=== PATIENT | male | born 1965 | race African-American/Black ===

== ENCOUNTER 2017-01-26 10:23 | Inpatient (IN) | payer OTHER ==
--- NOTE | 2017-01-26 10:49 | PDOC ---
History of Present Illness <Patric Glover - Last Filed: 01/26/17 17:49> - General History Source: Patient Exam Limitations: No Limitations - History of Present Illness Initial Comments: 01/26/17 11:04 The patient is a 51-year-old male, with a significant past medical history of lumbar shunt, who presents to the ED with one week of chest pain and 5 days of shortness of breath. Pt states that he was not exerting himself when the chest pain began. He states that he feels as if someone is sitting on the center of his chest. He describes the pain as intermittent, 5/10 in severity, radiating down his left arm, with no exacerbating or alleviating factors. He has not taken anything for the pain. Pt states that he came in today because his shortness of breath worsened today while on the bus. He also reports that he was sweating even though the AC was on in the bus. Pts sob is exacerbated when walking up steps. The patient denies any fever, chills, nausea, vomiting, diarrhea, or abdominal pain. He denies any numbness or tingling in his extremities. <Claire Patton - Last Filed: 01/26/17 18:48> - General Chief Complaint: Chest Pain Stated Complaint: CHEST PAIN Time Seen by Provider: 01/26/17 10:48 Past History - Psycho/Social/Smoking Cessation Hx Suicidal Ideation: No Smoking History: Never smoked <BelenPatric - Last Filed: 01/26/17 17:49> <Claire Patton - Last Filed: 01/26/17 18:48> - Past Medical History Allergies/Adverse Reactions: Allergies Allergy/AdvReac Type Severity Reaction Status Date / Time No Known Allergies Allergy Verified 01/26/17 10:35 Home Medications: Ambulatory Orders NK [No Known Home Medication] 01/26/17 Review of Systems - Review of Systems Able to Perform ROS?: Yes Comments:: 01/26/17 11:05 GENERAL/CONSTITUTIONAL: No fever or chills. No weakness. HEAD, EYES, EARS, NOSE AND THROAT: No change in vision. No ear pain or discharge. No sore throat. CARDIOVASCULAR: +chest pain or shortness of breath. RESPIRATORY: No cough, wheezing, or hemoptysis. SKIN: No rash GASTROINTESTINAL: No nausea, vomiting, diarrhea or constipation. GENITOURINARY: No dysuria, frequency, or change in urination. MUSCULOSKELETAL: No joint or muscle swelling or pain. No neck or back pain. NEUROLOGIC: No headache, vertigo, loss of consciousness, or change in strength/ sensation. ENDOCRINE: No increased thirst. No abnormal weight change. HEMATOLOGIC/LYMPHATIC: No anemia, easy bleeding, or history of blood clots. ALLERGIC/IMMUNOLOGIC: No hives or skin allergy. <Claire Patton - Last Filed: 01/26/17 18:48> *Physical Exam - Vital Signs Last Vital Signs Temp Pulse Resp BP Pulse Ox 98.7 F 100 H 19 153/107 98 01/26/17 10:35 01/26/17 10:35 01/26/17 10:35 01/26/17 10:35 01/26/17 10:35 <Patric Glover - Last Filed: 01/26/17 17:49> - Vital Signs Last Vital Signs Temp Pulse Resp BP Pulse Ox 98.7 F 100 H 19 153/107 98 01/26/17 10:35 01/26/17 10:35 01/26/17 10:35 01/26/17 10:35 01/26/17 10:35 - Physical Exam Comments: 01/26/17 11:06 GENERAL: Awake, alert, and fully oriented, in no acute distress. +Obese HEAD: No signs of trauma ENT: Auricles normal inspection, hearing grossly normal, nares patent, oropharynx clear EYES: PERRLA, EOMI, sclera anicteric, conjunctiva clear without exudates. Moist mucosa. NECK: Normal ROM, supple, no lymphadenopathy, JVD, or masses LUNGS: Breath sounds equal, clear to auscultation bilaterally. No wheezes, and no crackles HEART: Regular rate and rhythm, normal S1 and S2, no murmurs, rubs or gallops ABDOMEN: Soft, nontender, normoactive bowel sounds. No guarding, no rebound. No masses EXTREMITIES: Normal range of motion, no edema. No clubbing or cyanosis. No cords, erythema, or tenderness NEUROLOGICAL: Cranial nerves II through XII grossly intact. Normal speech. SKIN: Warm, Dry, normal turgor, no rashes or lesions noted. <Claire Patton - Last Filed: 01/26/17 18:48> Heart Score/ECG Review - ECG Intrepretation Comment:: 01/26/17 11:07 EKG was reviewed by Dr. Glover at 10:36. Impression: Normal sinus rhythm. Left axis deviation. 01/26/17 18:47 Second EKG was reviewed at 18:10. Impression: Sinus rhythm with 1st degree AV block. <Claire Patton - Last Filed: 01/26/17 18:48> ED Treatment Course - LABORATORY CBC & Chemistry Diagram: 01/26/17 11:27 01/26/17 11:27 <Patric Glover - Last Filed: 01/26/17 17:49> - LABORATORY CBC & Chemistry Diagram: 01/26/17 11:27 01/26/17 11:27 <Claire Patton - Last Filed: 01/26/17 18:48> Medical Decision Making - Medical Decision Making 01/26/17 11:55 Chest X-Ray was reviewed by Dr. Glover and over-read by Dr. Glover. Impression: No infiltrate or edema in the lungs-no acute changes noted. 01/26/17 16:00 Dr. Naik was paged and notified via phone service. Second page placed at 17:35. <Claire Patton - Last Filed: 01/26/17 18:48> *DC/Admit/Observation/Transfer - Discharge Dispostion Admit: Yes - Attestations Physician Attestion: 01/26/17 10:49 I, Dr. Patric Glover, attest that this document has been prepared under my direction and personally reviewed by me in its entirety. I further attest, that it accurately reflects all work, treatment, procedures and medical decision -making performed by me. <Patric Glover - Last Filed: 01/26/17 17:49> - Attestations Scribe Attestion: 01/26/17 11:06 Documentation prepared by Claire Patton, acting as director of graduate medical education for Patric Glover MD. <Claire Patton - Last Filed: 01/26/17 18:48> Diagnosis at time of Disposition: Hypertensive crisis without congestive heart failure - Discharge Dispostion Condition at time of disposition: Improved - Referrals Referrals: Fannie Ramos [Primary Care Provider] -
[2017-01-26 11:41] LABS: BASOPHIL 0.6 % (0-2.0); EOSINOPHIL 3.2 % (0-4.5); MCHC 33.1 g/dl (32.0-35.9); MEAN CELL VOLUME 84.6 fl (80-96); MEAN PLT VOLUME 8.4 fl (7.5-11.1); NEUTROPHILS 71.1 % (42.8-82.8); PLATELET COUNT 230 K/MM3 (134-434); RDW 13.4 % (11.9-15.9)
--- NOTE | 2017-01-26 11:50 | EKG ---
Test Reason : Blood Pressure : / mmHG Vent. Rate : 100 BPM Atrial Rate : 100 BPM P-R Int : 200 ms QRS Dur : 098 ms QT Int : 360 ms P-R-T Axes : 055 -40 044 degrees QTc Int : 464 ms NORMAL SINUS RHYTHM LEFT AXIS DEVIATION ABNORMAL ECG NO PREVIOUS ECGS AVAILABLE Confirmed by EMMA JUNG MD ([id number]) on 01/26/2017 11:49:52 AM Referred By: Confirmed By:EMMA JUNG MD
[2017-01-26 11:59] LABS: INR 1.1 (0.82-1.09); PROTHROMBIN TIME (PATIENT) 12.1 SEC (9.98-11.88)
[2017-01-26] MEDS ORDERED: cloNIDine HCL 0.1 MG TABLET PO ONE (12:00)
[2017-01-26 12:04] LABS: ALBUMIN 3.8 g/dl (3.4-5.0); ANION GAP 5 (8-16); CALCIUM 8.9 mg/dL (8.5-10.1); CO2 32 mmol/L (21-32); GLUCOSE,RANDOM 293 mg/dL (74-106); SGPT/ALT 22 U/L (12-78)
[2017-01-26] MEDS ORDERED: cloNIDine HCL 0.1 MG TABLET ONE (12:06)
[2017-01-26 12:07] LABS: ALK PHOS 120 U/L (45-117); BILIRUBIN,TOTAL 0.3 mg/dL (0.2-1.0); TOT PROT 7.3 g/dl (6.4-8.2); TROPONIN I < 0.02 ng/ml (0.00-0.05)
[2017-01-26 12:08] LABS: SGOT/AST 18 U/L (15-37)
[2017-01-26 12:27] LABS: CK INDEX FOR DOBBS 0.7 % (0.0-5.0)
[2017-01-26] MEDS ORDERED: hydrALAZINE HCL 20 MG/ML VIAL IVPUSH ONE ×2 (14:15)
[2017-01-26] MEDS ORDERED: hydrALAZINE HCL 20 MG/ML VIAL ONE (14:16)
[2017-01-26] MEDS ORDERED: METOPROLOL TARTRATE 5 MG/5 ML VIAL IVPUSH ONE ×2 (15:33→16:14)
[2017-01-26] MEDS ORDERED: METOPROLOL TARTRATE 5 MG/5 ML VIAL ONE ×2 (15:33→16:17)
[2017-01-26] MEDS ORDERED: amLODIPine BESYLATE 5 MG TABLET (FP) PO ONE (17:47)
[2017-01-26] MEDS ORDERED: amLODIPine BESYLATE 5 MG TABLET (FP) ONE (18:30)
[2017-01-26 19:00] LABS: TROPONIN I < 0.02 ng/ml (0.00-0.05)
[2017-01-26] MEDS: ASPIRIN COATED 81 MG TABLET.EC PO SCH (23:04)
[2017-01-27] MEDS ORDERED: METOPROLOL SUCCINATE 25 MG TAB.SR.24H (FP) PO SCH (07:15)
[2017-01-27] MEDS: amLODIPine BESYLATE 10 MG TABLET (FP) PO SCH (07:52)
[2017-01-27] MEDS ORDERED: hydrALAZINE HCL 25 MG TABLET (FP) PO ONE (08:45)
--- NOTE | 2017-01-27 09:20 | EKG ---
Test Reason : Blood Pressure : / mmHG Vent. Rate : 089 BPM Atrial Rate : 089 BPM P-R Int : 226 ms QRS Dur : 088 ms QT Int : 384 ms P-R-T Axes : 054 -44 027 degrees QTc Int : 467 ms SINUS RHYTHM WITH 1ST DEGREE A-V BLOCK LEFT AXIS DEVIATION ABNORMAL ECG WHEN COMPARED WITH ECG OF 26-JAN-2017 10:36, NO SIGNIFICANT CHANGE WAS FOUND Confirmed by YASH CARTER MD ([id number]) on 01/27/2017 9:20:20 AM Referred By: Confirmed By:YASH CARTER MD
[2017-01-27] MEDS: ASPIRIN COATED 81 MG TABLET.EC PO SCH (09:31)
--- NOTE | 2017-01-27 09:47 | CON.CARD ---
Consult Consult Specialty:: cardiology Reason for Consultation:: chest pain; HTN - History of Present Illness Chief Complaint: Pt A&Ox3; no chest pain presently. History of Present Illness: The patient is a 51-year-old black male, with a significant past medical history of lumbar shunt, legally blind, obesity, HTN, who presents to the ED with one week of chest pain and 5 days of shortness of breath. Pt states that he was not exerting himself when the chest pain began. He states that he feels as if someone is sitting on the center of his chest. He describes the pain as intermittent, 8/10 in severity, radiating down his left arm, sometimes lasting for hours, with no exacerbating or alleviating factors. He has not taken anything for the pain. Pt states that he came in today because his shortness of breath worsened today while on the bus. He also reports that he was sweating even though the airconditioning was on in the bus. Pts sob is exacerbated when walking up steps. The patient denies any fever, chills, nausea, vomiting, diarrhea, or abdominal pain. He denies any numbness or tingling in his extremities. - History Source History Provided By: Patient, Medical Record Limitations to Obtaining History: No Limitations - Past Medical History Cardio/Vascular: Yes: HTN Pulmonary: No: Asthma - Alcohol/Substance Use Hx Alcohol Use: Yes (occasional) - Smoking History Smoking history: Never smoked Home Medications - Allergies Allergies/Adverse Reactions: Allergies Allergy/AdvReac Type Severity Reaction Status Date / Time No Known Allergies Allergy Verified 01/26/17 10:35 - Home Medications Home Medications: Ambulatory Orders NK [No Known Home Medication] 01/26/17 Family Disease History - Family Disease History Family History: Denies Review of Systems - Review of Systems Constitutional: reports: No Symptoms Eyes: reports: Other HENT: reports: No Symptoms Neck: reports: No Symptoms Cardiovascular: reports: Chest Pain Respiratory: reports: SOB, SOB on Exertion Gastrointestinal: reports: No Symptoms Genitourinary: reports: No Symptoms Breasts: reports: No Symptoms Reported Musculoskeletal: reports: Joint Pain Integumentary: reports: No Symptoms Neurological: reports: Other Endocrine: reports: No Symptoms Hematology/Lymphatic: reports: No Symptoms Psychiatric: reports: No Symptoms - Risk Factors Known Risk Factors: Yes: Age, Gender, Hypertension, Physical Inactivity, Race, Other (morbid obesity) Vital Signs: Vital Signs Temperature 98.0 F 01/27/17 06:25 Pulse Rate 92 H 01/27/17 06:25 Respiratory Rate 20 01/27/17 06:25 Blood Pressure 170/110 01/27/17 06:25 O2 Sat by Pulse Oximetry (%) 98 01/26/17 21:05 Constitutional: Yes: Calm, Obese Eyes: Yes: Other (wears glasses; "legally blind") HENT: Yes: WNL Neck: Yes: WNL Respiratory: Yes: WNL Gastrointestinal: Yes: Soft, Abdomen, Obese Renal/: No: Anuria Cardiovascular: Yes: Regular Rate and Rhythm JVD: No Carotid Bruit: No PMI: Non-Displaced Heart Sounds: Yes: S1, S2, S4 Musculoskeletal: Yes: Joint Stiffness Extremities: Yes: WNL Edema: No Peripheral Pulses WNL: Yes Integumentary: Yes: WNL Neurological: Yes: Alert, Oriented Psychiatric: Yes: WNL - Other Data Labs, Other Data: INR, PTT INR 1.10 (0.82-1.09) 01/26/17 11:27 Troponin, BNP 01/26/17 18:20 Troponin I < 0.02 Troponin, BNP 01/26/17 18:20 Troponin I < 0.02 Imaging - Results Chest X-ray: Image Reviewed (no acute pathology) Cat Scan: Image Reviewed (no saddle embolism; limited study) Problem List - Problems (1) HTN (hypertension) Assessment/Plan: On metoprolol, hydralazine, amlodipine. Add spironolactone 50 mg daily; serial BP. F/u BUN/Cr, electrolytes. Code(s): I10 - ESSENTIAL (PRIMARY) HYPERTENSION (2) Obesity Code(s): E66.9 - OBESITY, UNSPECIFIED (3) Chest pain Assessment/Plan: Pt had 8/10 left-sided chest heaviness that began at rest and lasted several hours, with radiation to the left arm He has had a few similar episodes over the past month. TNI < 0.02; f/u serially. EKG: NSR; 1st degree AVB; LAD. ECHO : pending. Give ASA 81 mg daily. For stress MIBI once BP is controlled. The importance of weight loss, with diet modifcation, was disucssed in detail. Pt says he has lost 15 lbs in the past few months by decreasing portion sizes ( eg eating fewer porkchops, his favorit food, and drinking more water; he still has occasional sugary juices and sodas. He was athletic when young, and feels it was the steroids he took for his neurological disorder that started the weight gain, though "all of my family is big", he says. Code(s): R07.9 - CHEST PAIN, UNSPECIFIED
--- NOTE | 2017-01-27 11:45 | HP ---
Admitting History and Physical - Smoking History Smoking history: Never smoked - Alcohol/Substance Use Hx Alcohol Use: Yes (occasional) Home Medications - Allergies Allergies/Adverse Reactions: Allergies Allergy/AdvReac Type Severity Reaction Status Date / Time No Known Allergies Allergy Verified 01/26/17 10:35 - Home Medications Home Medications: Ambulatory Orders NK [No Known Home Medication] 01/26/17 Physical Examination Vital Signs: Vital Signs Temperature 98.0 F 01/27/17 06:25 Pulse Rate 92 H 01/27/17 06:25 Respiratory Rate 20 01/27/17 06:25 Blood Pressure 170/110 01/27/17 06:25 O2 Sat by Pulse Oximetry (%) 98 01/26/17 21:05
[2017-01-27] MEDS: SPIRONOLACTONE 25 MG TABLET (FP) PO SCH (14:51)
[2017-01-27] MEDS ORDERED: METOPROLOL SUCCINATE 25 MG TAB.SR.24H (FP) PO ONE (17:35)
--- NOTE | 2017-01-27 17:49 | PN ---
Progress Note, Physician Chief Complaint: Pt A&OX3; sitting up at bedside. No chest pain of dyspnea. History of Present Illness: The patient is a 51-year-old black male, with a significant past medical history of lumbar shunt, legally blind, obesity, HTN, who presents to the ED with one week of chest pain and 5 days of shortness of breath. Pt states that he was not exerting himself when the chest pain began. He states that he feels as if someone is sitting on the center of his chest. He describes the pain as intermittent, 8/10 in severity, radiating down his left arm, sometimes lasting for hours, with no exacerbating or alleviating factors. He has not taken anything for the pain. Pt states that he came in today because his shortness of breath worsened today while on the bus. He also reports that he was sweating even though the airconditioning was on in the bus. Pts sob is exacerbated when walking up steps. The patient denies any fever, chills, nausea, vomiting, diarrhea, or abdominal pain. He denies any numbness or tingling in his extremities. - Current Medication List Current Medications: Active Medications Amlodipine Besylate (Norvasc -) 10 mg PO DAILY [facility] Last Admin: 01/27/17 07:52 Dose: 10 mg Aspirin (Ecotrin -) 81 mg PO DAILY [facility] Last Admin: 01/27/17 09:31 Dose: 81 mg Hydralazine HCl (Apresoline -) 25 mg PO BID [facility] Metoprolol Succinate (Toprol Xl -) 25 mg PO ONCE ONE Stop: 01/27/17 17:36 Metoprolol Succinate (Toprol Xl -) 50 mg PO DAILY [facility] Spironolactone (Aldactone -) 50 mg PO DAILY [facility] Last Admin: 01/27/17 14:51 Dose: 50 mg - Objective Vital Signs: Vital Signs Temperature 98.2 F 01/27/17 14:00 Pulse Rate 98 H 01/27/17 14:00 Respiratory Rate 20 01/27/17 14:00 Blood Pressure 158/100 01/27/17 14:00 O2 Sat by Pulse Oximetry (%) 98 01/26/17 21:05 Constitutional: Yes: Anxious Eyes: Yes: Other HENT: Yes: WNL Neck: Yes: WNL Cardiovascular: Yes: Regular Rate and Rhythm, S1 (split), S2, S4 Respiratory: Yes: WNL Gastrointestinal: Yes: Soft, Abdomen, Obese ...Rectal Exam: Yes: Deferred Genitourinary: No: Anuria Breast(s): Yes: WNL Musculoskeletal: Yes: Joint Stiffness Extremities: Yes: WNL Edema: No Peripheral Pulses WNL: Yes Integumentary: Yes: WNL Neurological: Yes: WNL Psychiatric: Yes: WNL Labs: INR, PTT INR 1.10 (0.82-1.09) 01/26/17 11:27 Problem List - Problems (1) HTN (hypertension) Assessment/Plan: On metoprolol, hydralazine, amlodipine. Added spironolactone 50 mg daily; Increase metoprolol ER to 50 mg daily; serial BP and HR. Can gradually increase hydralazine to 200 mg total daily. F/u BUN/Cr, electrolytes. Code(s): I10 - ESSENTIAL (PRIMARY) HYPERTENSION (2) Obesity Assessment/Plan: the need to continue losing weight through diet modification, portion control, and increase in exercise was emphasized. Code(s): E66.9 - OBESITY, UNSPECIFIED (3) Chest pain Assessment/Plan: Pt had 8/10 left-sided chest heaviness that began at rest and lasted several hours, with radiation to the left arm He has had a few similar episodes over the past month. TNI < 0.02 x 2. EKG: NSR; 1st degree AVB; LAD. ECHO :normal LVEF; limited study. Give ASA 81 mg daily. For stress MIBI once BP is controlled. The importance of weight loss, with diet modification, was disucssed in detail. Pt says he has lost 15 lbs in the past few months by decreasing portion sizes ( eg eating fewer porkchops, his favorit food, and drinking more water; he still has occasional sugary juices and sodas. He was athletic when young, and feels it was the steroids he took for his neurological disorder that started the weight gain, though "all of my family is big", he says. CTA: limited study: no saddle embolus, but peripheries not well-seen. Consider VQ scan. Code(s): R07.9 - CHEST PAIN, UNSPECIFIED
[2017-01-27] MEDS: hydrALAZINE HCL 25 MG TABLET (FP) PO SCH (20:59)
[2017-01-28 08:06] LABS: CHOLESTEROL 178 mg/dL (50-200); LDL CHOLESTEROL (ONLY SJRH) 109 mg/dL (5-100)
[2017-01-28] MEDS: SPIRONOLACTONE 25 MG TABLET (FP) PO SCH (09:41)
[2017-01-28] MEDS: hydrALAZINE HCL 25 MG TABLET (FP) PO SCH ×3 (09:42→21:11)
[2017-01-28] MEDS: ASPIRIN COATED 81 MG TABLET.EC PO SCH (09:42)
[2017-01-28] MEDS: amLODIPine BESYLATE 10 MG TABLET (FP) PO SCH (09:42)
[2017-01-28] MEDS ORDERED: METOPROLOL SUCCINATE 50 MG TAB.SR.24H (FP) PO SCH (10:00)
--- NOTE | 2017-01-28 12:07 | PN ---
Progress Note, Physician Chief Complaint: Pt A&OX3; sitting up at bedside. No chest pain of dyspnea, but c/o erectile dysfunction that started after this admission to hospital. History of Present Illness: The patient is a 51-year-old black male, with a significant past medical history of lumbar shunt, legally blind, obesity, HTN, who presents to the ED with one week of chest pain and 5 days of shortness of breath. Pt states that he was not exerting himself when the chest pain began. He states that he feels as if someone is sitting on the center of his chest. He describes the pain as intermittent, 8/10 in severity, radiating down his left arm, sometimes lasting for hours, with no exacerbating or alleviating factors. He has not taken anything for the pain. Pt states that he came in today because his shortness of breath worsened today while on the bus. He also reports that he was sweating even though the airconditioning was on in the bus. Pts sob is exacerbated when walking up steps. The patient denies any fever, chills, nausea, vomiting, diarrhea, or abdominal pain. He denies any numbness or tingling in his extremities. - Current Medication List Current Medications: Active Medications Amlodipine Besylate (Norvasc -) 10 mg PO DAILY [facility] Last Admin: 01/28/17 09:42 Dose: 10 mg Aspirin (Ecotrin -) 81 mg PO DAILY [facility] Last Admin: 01/28/17 09:42 Dose: 81 mg Hydralazine HCl (Apresoline -) 25 mg PO BID [facility] Last Admin: 01/28/17 09:42 Dose: 25 mg Metoprolol Succinate (Toprol Xl -) 50 mg PO DAILY [facility] Last Admin: 01/28/17 09:42 Dose: 50 mg Spironolactone (Aldactone -) 50 mg PO DAILY [facility] Last Admin: 01/28/17 09:41 Dose: 50 mg - Objective Vital Signs: Vital Signs Temperature 98.1 F 01/28/17 10:30 Pulse Rate 87 01/28/17 10:30 Respiratory Rate 17 01/28/17 10:30 Blood Pressure 151/112 01/28/17 10:30 O2 Sat by Pulse Oximetry (%) 98 01/27/17 20:19 Constitutional: Yes: Calm Eyes: Yes: WNL HENT: Yes: WNL Neck: Yes: WNL Cardiovascular: Yes: Regular Rate and Rhythm, S1, S2, S4 Respiratory: Yes: WNL Gastrointestinal: Yes: Soft, Abdomen, Obese ...Rectal Exam: Yes: Deferred Genitourinary: No: Anuria Breast(s): Yes: WNL Musculoskeletal: Yes: WNL Extremities: Yes: WNL Edema: Yes Edema: LLE: 1+, RLE: 1+ Integumentary: Yes: Venous Stasis Changes Neurological: Yes: WNL Psychiatric: Yes: Alert, Oriented Labs: INR, PTT INR 1.10 (0.82-1.09) 01/26/17 11:27 Problem List - Problems (1) HTN (hypertension) Assessment/Plan: Increase hydralazine to 25 mg tid. Code(s): I10 - ESSENTIAL (PRIMARY) HYPERTENSION (2) Obesity Assessment/Plan: the need to continue losing weight through diet modification, portion control, and increase in exercise was emphasized. Code(s): E66.9 - OBESITY, UNSPECIFIED (3) Chest pain Assessment/Plan: Pt had 8/10 left-sided chest heaviness that began at rest and lasted several hours, with radiation to the left arm He has had a few similar episodes over the past month. TNI < 0.02 x 2. EKG: NSR; 1st degree AVB; LAD. ECHO :normal LVEF; limited study. Give ASA 81 mg daily. For stress MIBI once BP is controlled. The importance of weight loss, with diet modification, was disucssed in detail. Pt says he has lost 15 lbs in the past few months by decreasing portion sizes ( eg eating fewer porkchops, his favorit food, and drinking more water; he still has occasional sugary juices and sodas. He was athletic when young, and feels it was the steroids he took for his neurological disorder that started the weight gain, though "all of my family is big", he says. CTA: limited study: no saddle embolus, but peripheries not well-seen. Consider VQ scan. Code(s): R07.9 - CHEST PAIN, UNSPECIFIED (4) Hyperlipidemia Assessment/Plan: start atorvastatin 20 mg daily. Code(s): E78.5 - HYPERLIPIDEMIA, UNSPECIFIED (5) Erectile dysfunction Assessment/Plan: began with this hospital admission. Metoprolol is a possible cause. Will stop metoprolol (it was to be held, n any case, for upcoming stress MIBI). Code(s): N52.9 - MALE ERECTILE DYSFUNCTION, UNSPECIFIED
[2017-01-28] MEDS ORDERED: ACETAMINOPHEN 325 MG TABLET (FP) PO PRN (16:14)
--- NOTE | 2017-01-28 16:46 | PN ---
Progress Note, Physician - Current Medication List Current Medications: Active Medications Acetaminophen (Tylenol -) 650 mg PO Q6H PRN PRN Reason: PAIN Amlodipine Besylate (Norvasc -) 10 mg PO DAILY [facility] Last Admin: 01/28/17 09:42 Dose: 10 mg Aspirin (Ecotrin -) 81 mg PO DAILY [facility] Last Admin: 01/28/17 09:42 Dose: 81 mg Atorvastatin Calcium (Lipitor -) 20 mg [address] [facility] Hydralazine HCl (Apresoline -) 25 mg PO TID [facility] Last Admin: 01/28/17 15:06 Dose: 25 mg Spironolactone (Aldactone -) 50 mg PO DAILY [facility] Last Admin: 01/28/17 09:41 Dose: 50 mg - Objective Vital Signs: Vital Signs Temperature 97.8 F 01/28/17 15:00 Pulse Rate 87 01/28/17 15:00 Respiratory Rate 18 01/28/17 15:00 Blood Pressure 121/93 01/28/17 15:00 O2 Sat by Pulse Oximetry (%) 99 01/28/17 09:00 Labs: INR, PTT INR 1.10 (0.82-1.09) 01/26/17 11:27
[2017-01-28] MEDS: ATORVASTATIN CA 20 MG TABLET (FP) PO SCH (21:11)
[2017-01-29] MEDS: hydrALAZINE HCL 25 MG TABLET (FP) PO SCH ×3 (06:43→21:11)
[2017-01-29] MEDS: amLODIPine BESYLATE 10 MG TABLET (FP) PO SCH (09:27)
[2017-01-29] MEDS: ASPIRIN COATED 81 MG TABLET.EC PO SCH (09:27)
[2017-01-29] MEDS: SPIRONOLACTONE 25 MG TABLET (FP) PO SCH (09:27)
--- NOTE | 2017-01-29 19:42 | PN ---
Progress Note, Physician History of Present Illness: stable - Current Medication List Current Medications: Active Medications Acetaminophen (Tylenol -) 650 mg PO Q6H PRN PRN Reason: PAIN Last Admin: 01/28/17 16:42 Dose: 650 mg Amlodipine Besylate (Norvasc -) 10 mg PO DAILY [facility] Last Admin: 01/29/17 09:27 Dose: 10 mg Aspirin (Ecotrin -) 81 mg PO DAILY [facility] Last Admin: 01/29/17 09:27 Dose: 81 mg Atorvastatin Calcium (Lipitor -) 20 mg PO HS [facility] Last Admin: 01/28/17 21:11 Dose: 20 mg Hydralazine HCl (Apresoline -) 25 mg PO TID [facility] Last Admin: 01/29/17 13:42 Dose: 25 mg Spironolactone (Aldactone -) 50 mg PO DAILY [facility] Last Admin: 01/29/17 09:27 Dose: 50 mg - Objective Vital Signs: Vital Signs Temperature 98.4 F 01/29/17 18:00 Pulse Rate 102 H 01/29/17 18:00 Respiratory Rate 20 01/29/17 18:00 Blood Pressure 151/97 01/29/17 18:00 O2 Sat by Pulse Oximetry (%) 99 01/29/17 07:56 Constitutional: Yes: No Distress HENT: Yes: Atraumatic Neck: Yes: Supple Cardiovascular: Yes: Regular Rate and Rhythm Respiratory: Yes: CTA Bilaterally Gastrointestinal: Yes: Normal Bowel Sounds Extremities: Yes: WNL Neurological: Yes: Alert, Oriented Labs: INR, PTT INR 1.10 (0.82-1.09) 01/26/17 11:27 Problem List - Problems (1) Chest pain Assessment/Plan: TROPONINS NEGATIVE Code(s): R07.9 - CHEST PAIN, UNSPECIFIED (2) Erectile dysfunction Code(s): N52.9 - MALE ERECTILE DYSFUNCTION, UNSPECIFIED (3) HTN (hypertension) Assessment/Plan: ON MEDS SATBLE Code(s): I10 - ESSENTIAL (PRIMARY) HYPERTENSION (4) Hypertensive crisis without congestive heart failure Code(s): I16.9 - HYPERTENSIVE CRISIS, UNSPECIFIED Assessment/Plan COVERING DR HADLEY
[2017-01-29] MEDS: ATORVASTATIN CA 20 MG TABLET (FP) PO SCH (21:11)
[2017-01-30] MEDS: hydrALAZINE HCL 25 MG TABLET (FP) PO SCH (05:22)
--- NOTE | 2017-01-30 07:10 | PN ---
Progress Note, Physician Chief Complaint: Pt A&OX3; sitting up at bedside. No chest pain of dyspnea. History of Present Illness: The patient is a 51-year-old black male, with a significant past medical history of lumbar shunt, legally blind, obesity, HTN, who presents to the ED with one week of chest pain and 5 days of shortness of breath. Pt states that he was not exerting himself when the chest pain began. He states that he feels as if someone is sitting on the center of his chest. He describes the pain as intermittent, 8/10 in severity, radiating down his left arm, sometimes lasting for hours, with no exacerbating or alleviating factors. He has not taken anything for the pain. Pt states that he came in today because his shortness of breath worsened today while on the bus. He also reports that he was sweating even though the airconditioning was on in the bus. Pts sob is exacerbated when walking up steps. The patient denies any fever, chills, nausea, vomiting, diarrhea, or abdominal pain. He denies any numbness or tingling in his extremities. - Current Medication List Current Medications: Active Medications Acetaminophen (Tylenol -) 650 mg PO Q6H PRN PRN Reason: PAIN Last Admin: 01/28/17 16:42 Dose: 650 mg Amlodipine Besylate (Norvasc -) 10 mg PO DAILY [facility] Last Admin: 01/29/17 09:27 Dose: 10 mg Aspirin (Ecotrin -) 81 mg PO DAILY [facility] Last Admin: 01/29/17 09:27 Dose: 81 mg Atorvastatin Calcium (Lipitor -) 20 mg PO HS [facility] Last Admin: 01/29/17 21:11 Dose: 20 mg Hydralazine HCl (Apresoline -) 25 mg PO TID [facility] Last Admin: 01/30/17 05:22 Dose: 25 mg Spironolactone (Aldactone -) 50 mg PO DAILY [facility] Last Admin: 01/29/17 09:27 Dose: 50 mg - Objective Vital Signs: Vital Signs Temperature 98.7 F 01/30/17 05:19 Pulse Rate 92 H 01/30/17 05:19 Respiratory Rate 20 01/30/17 05:19 Blood Pressure 156/103 01/30/17 05:19 O2 Sat by Pulse Oximetry (%) 97 07/30/17 20:58 Constitutional: Yes: Obese Eyes: Yes: WNL HENT: Yes: WNL Neck: Yes: WNL Cardiovascular: Yes: Regular Rate and Rhythm, S1, S2, S4 Respiratory: Yes: Regular Gastrointestinal: Yes: Soft, Abdomen, Obese ...Rectal Exam: Yes: Deferred Genitourinary: No: Anuria Breast(s): Yes: WNL Musculoskeletal: Yes: WNL Extremities: Yes: WNL Edema: Yes Edema: LLE: Trace, RLE: Trace Peripheral Pulses WNL: Yes Integumentary: Yes: WNL Neurological: Yes: WNL Psychiatric: Yes: WNL Labs: INR, PTT INR 1.10 (0.82-1.09) 01/26/17 11:27 Problem List - Problems (1) HTN (hypertension) Assessment/Plan: metoprolol held in anticipation of stress MIBI (and may need to be discontinued, given erectile dysfunction, though pt says the latter has improved). Increase hydralazine to 25 mg tid; may increase to maximum of 100 mg bid. Code(s): I10 - ESSENTIAL (PRIMARY) HYPERTENSION (2) Obesity Assessment/Plan: the need to continue losing weight through diet modification, portion control, and increase in exercise was emphasized. Code(s): E66.9 - OBESITY, UNSPECIFIED (3) Chest pain Assessment/Plan: For stress MIBI when HTN better-controlled. Periods of sinus tachycardia. CTA: limited study: no saddle embolus, but peripheries not well-seen. Consider VQ scan. Code(s): R07.9 - CHEST PAIN, UNSPECIFIED (4) Hyperlipidemia Assessment/Plan: start atorvastatin 20 mg daily. Code(s): E78.5 - HYPERLIPIDEMIA, UNSPECIFIED (5) Erectile dysfunction Assessment/Plan: began with this hospital admission; pt states it has already improved (though metoprolol stopped only for past 24 hours). Metoprolol is a possible cause. Stopped metoprolol (it was to be held, in any case, for upcoming stress MIBI). Code(s): N52.9 - MALE ERECTILE DYSFUNCTION, UNSPECIFIED
[2017-01-30] MEDS: amLODIPine BESYLATE 10 MG TABLET (FP) PO SCH ×2 (08:14→13:34)
--- NOTE | 2017-01-30 09:55 | EKG ---
Test Reason : Blood Pressure : / mmHG Vent. Rate : 087 BPM Atrial Rate : 087 BPM P-R Int : 218 ms QRS Dur : 092 ms QT Int : 384 ms P-R-T Axes : 045 -43 021 degrees QTc Int : 462 ms SINUS RHYTHM WITH 1ST DEGREE A-V BLOCK LEFT AXIS DEVIATION ABNORMAL ECG WHEN COMPARED WITH ECG OF 26-JAN-2017 18:10, NO SIGNIFICANT CHANGE WAS FOUND Confirmed by DONTE CARTER, SAHIL ([id number]) on 01/30/2017 9:55:33 AM Referred By: BERTA OLIVER Confirmed By:SAHIL KENT MD
--- NOTE | 2017-01-30 10:47 | PN ---
Progress Note, Physician History of Present Illness: The patient is a 51-year-old black male, with a significant past medical history of lumbar shunt, legally blind, obesity, HTN, who presents to the ED with one week of chest pain and 5 days of shortness of breath. Pt states that he was not exerting himself when the chest pain began. He states that he feels as if someone is sitting on the center of his chest. He describes the pain as intermittent, 8/10 in severity, radiating down his left arm, sometimes lasting for hours, with no exacerbating or alleviating factors. He has not taken anything for the pain. Pt states that he came in today because his shortness of breath worsened today while on the bus. He also reports that he was sweating even though the airconditioning was on in the bus. Pts sob is exacerbated when walking up steps. The patient denies any fever, chills, nausea, vomiting, diarrhea, or abdominal pain. He denies any numbness or tingling in his extremities. - Current Medication List Current Medications: Active Medications Acetaminophen (Tylenol -) 650 mg PO Q6H PRN PRN Reason: PAIN Last Admin: 01/28/17 16:42 Dose: 650 mg Amlodipine Besylate (Norvasc -) 10 mg PO DAILY [facility] Last Admin: 01/30/17 08:14 Dose: 10 mg Aspirin (Ecotrin -) 81 mg PO DAILY [facility] Last Admin: 01/29/17 09:27 Dose: 81 mg Atorvastatin Calcium (Lipitor -) 20 mg PO HS [facility] Last Admin: 01/29/17 21:11 Dose: 20 mg Hydralazine HCl (Apresoline -) 50 mg PO TID [facility] Spironolactone (Aldactone -) 50 mg PO DAILY [facility] Last Admin: 01/29/17 09:27 Dose: 50 mg - Objective Vital Signs: Vital Signs Temperature 98.7 F 01/30/17 07:19 Pulse Rate 88 01/30/17 07:19 Respiratory Rate 20 01/30/17 07:20 Blood Pressure 150/98 01/30/17 07:19 O2 Sat by Pulse Oximetry (%) 97 01/30/17 07:20 Eyes: Yes: WNL, Conjunctiva Clear, EOM Intact HENT: Yes: WNL, Atraumatic, Normocephalic Neck: Yes: WNL, Supple, Trachea Midline Cardiovascular: Yes: WNL, Regular Rate and Rhythm Respiratory: Yes: WNL, Regular, CTA Bilaterally Gastrointestinal: Yes: WNL, Normal Bowel Sounds Genitourinary: Yes: WNL Musculoskeletal: Yes: WNL Extremities: Yes: WNL Edema: No Integumentary: Yes: WNL Neurological: Yes: WNL, Alert, Oriented ...Motor Strength: WNL Psychiatric: Yes: WNL Labs: INR, PTT INR 1.10 (0.82-1.09) 01/26/17 11:27 Assessment/Plan Assessment/Plan: metoprolol held in anticipation of stress MIBI (and may need to be discontinued, given erectile dysfunction, though pt says the latter has improved). Increase hydralazine to 25 mg tid; may increase to maximum of 100 mg bid. Code(s): I10 - ESSENTIAL (PRIMARY) HYPERTENSION (2) Obesity Assessment/Plan: the need to continue losing weight through diet modification, portion control, and increase in exercise was emphasized. Code(s): E66.9 - OBESITY, UNSPECIFIED (3) Chest pain Assessment/Plan: For stress MIBI when HTN better-controlled. Periods of sinus tachycardia. CTA: limited study: no saddle embolus, but peripheries not well-seen. Consider VQ scan. Code(s): R07.9 - CHEST PAIN, UNSPECIFIED (4) Hyperlipidemia Assessment/Plan: start atorvastatin 20 mg daily. Code(s): E78.5 - HYPERLIPIDEMIA, UNSPECIFIED (5) Erectile dysfunction Assessment/Plan: began with this hospital admission; pt states it has already improved (though metoprolol stopped only for past 24 hours). Metoprolol is a possible cause. Stopped metoprolol (it was to be held, in any case, for upcoming stress MIBI). Code(s): N52.9 - MALE ERECTILE DYSFUNCTION, UNSPECIFIED
[2017-01-30] MEDS: ASPIRIN COATED 81 MG TABLET.EC PO SCH (13:34)
[2017-01-30] MEDS: hydrALAZINE HCL 50 MG TABLET (FP) PO SCH ×2 (13:34→21:16)
[2017-01-30] MEDS: SPIRONOLACTONE 25 MG TABLET (FP) PO SCH (13:34)
[2017-01-30] MEDS: ATORVASTATIN CA 20 MG TABLET (FP) PO SCH (21:16)
--- NOTE | 2017-01-30 22:23 | PN ---
Progress Note, Physician - Current Medication List Current Medications: Active Medications Acetaminophen (Tylenol -) 650 mg PO Q6H PRN PRN Reason: PAIN Last Admin: 01/28/17 16:42 Dose: 650 mg Amlodipine Besylate (Norvasc -) 10 mg PO DAILY [facility] Last Admin: 01/30/17 13:34 Dose: Not Given Aspirin (Ecotrin -) 81 mg PO DAILY [facility] Last Admin: 01/30/17 13:34 Dose: 81 mg Atorvastatin Calcium (Lipitor -) 20 mg PO HS [facility] Last Admin: 01/30/17 21:16 Dose: 20 mg Hydralazine HCl (Apresoline -) 50 mg PO TID [facility] Last Admin: 01/30/17 21:16 Dose: 50 mg Spironolactone (Aldactone -) 50 mg PO DAILY [facility] Last Admin: 01/30/17 13:34 Dose: 50 mg - Objective Vital Signs: Vital Signs Temperature 98.7 F 01/30/17 21:14 Pulse Rate 92 H 01/30/17 21:14 Respiratory Rate 20 01/30/17 21:14 Blood Pressure 133/89 01/30/17 21:14 O2 Sat by Pulse Oximetry (%) 98 01/30/17 20:36 Constitutional: Yes: Well Nourished Eyes: Yes: WNL HENT: Yes: WNL Neck: Yes: WNL, Supple Cardiovascular: Yes: WNL, Tachycardia Respiratory: Yes: WNL, Regular, CTA Bilaterally Gastrointestinal: Yes: WNL, Normal Bowel Sounds, Soft Labs: INR, PTT INR 1.10 (0.82-1.09) 01/26/17 11:27 Problem List - Problems (1) Chest pain Assessment/Plan: No further chest pain Awaiting stress test Cont asa Code(s): R07.9 - CHEST PAIN, UNSPECIFIED (2) HTN (hypertension) Assessment/Plan: BP better controlled BB was dc'ed due to erectile dysfunction Monitor heart rate wc is slightly elevated Cont hydralazone/norvasc/spirinolactone Code(s): I10 - ESSENTIAL (PRIMARY) HYPERTENSION (3) Obesity Code(s): E66.9 - OBESITY, UNSPECIFIED (4) Hyperlipidemia Assessment/Plan: Cont lipitor Code(s): E78.5 - HYPERLIPIDEMIA, UNSPECIFIED
[2017-01-31] MEDS: hydrALAZINE HCL 50 MG TABLET (FP) PO SCH ×3 (05:27→21:18)
[2017-01-31] MEDS: SPIRONOLACTONE 25 MG TABLET (FP) PO SCH (09:36)
[2017-01-31] MEDS: ASPIRIN COATED 81 MG TABLET.EC PO SCH (09:36)
[2017-01-31] MEDS: amLODIPine BESYLATE 10 MG TABLET (FP) PO SCH (09:36)
--- NOTE | 2017-01-31 10:08 | PN ---
Progress Note, Physician Chief Complaint: Pt A&OX3; anxious; wants to go home. History of Present Illness: The patient is a 51-year-old black male, with a significant past medical history of lumbar shunt, legally blind, obesity, HTN, who presents to the ED with one week of chest pain and 5 days of shortness of breath. Pt states that he was not exerting himself when the chest pain began. He states that he feels as if someone is sitting on the center of his chest. He describes the pain as intermittent, 8/10 in severity, radiating down his left arm, sometimes lasting for hours, with no exacerbating or alleviating factors. He has not taken anything for the pain. Pt states that he came in today because his shortness of breath worsened today while on the bus. He also reports that he was sweating even though the airconditioning was on in the bus. Pts sob is exacerbated when walking up steps. The patient denies any fever, chills, nausea, vomiting, diarrhea, or abdominal pain. He denies any numbness or tingling in his extremities. - Current Medication List Current Medications: Active Medications Acetaminophen (Tylenol -) 650 mg PO Q6H PRN PRN Reason: PAIN Last Admin: 01/28/17 16:42 Dose: 650 mg Amlodipine Besylate (Norvasc -) 10 mg PO DAILY [facility] Last Admin: 01/31/17 09:36 Dose: 10 mg Aspirin (Ecotrin -) 81 mg PO DAILY [facility] Last Admin: 01/31/17 09:36 Dose: 81 mg Atorvastatin Calcium (Lipitor -) 20 mg PO HS [facility] Last Admin: 01/30/17 21:16 Dose: 20 mg Hydralazine HCl (Apresoline -) 50 mg PO TID [facility] Last Admin: 01/31/17 05:27 Dose: 50 mg Spironolactone (Aldactone -) 50 mg PO DAILY [facility] Last Admin: 01/31/17 09:36 Dose: 50 mg - Objective Vital Signs: Vital Signs Temperature 98.2 F 01/31/17 07:35 Pulse Rate 90 01/31/17 07:35 Respiratory Rate 18 01/31/17 07:36 Blood Pressure 139/82 01/31/17 07:35 O2 Sat by Pulse Oximetry (%) 98 01/31/17 07:36 Constitutional: Yes: Anxious Eyes: Yes: WNL HENT: Yes: WNL Neck: Yes: WNL Cardiovascular: Yes: Regular Rate and Rhythm Respiratory: Yes: WNL Gastrointestinal: Yes: Soft, Abdomen, Obese ...Rectal Exam: Yes: Deferred Genitourinary: No: Anuria Musculoskeletal: Yes: WNL Extremities: Yes: WNL Edema: Yes Edema: LLE: Trace, RLE: Trace Peripheral Pulses WNL: Yes Neurological: Yes: Other Psychiatric: Yes: Other (anxiety) Labs: INR, PTT INR 1.10 (0.82-1.09) 01/26/17 11:27 Problem List - Problems (1) HTN (hypertension) Assessment/Plan: Blood pressure now better controlled. Metoprolol discontinued. Hydralazine increased to 50 mg tid. Amlodipine 10 mg daily. Aldactone 50 mg daily. F/u renal workup. BUN/Cr, electrolytes. Code(s): I10 - ESSENTIAL (PRIMARY) HYPERTENSION (2) Obesity Assessment/Plan: the need to continue losing weight through diet modification, portion control, and increase in exercise was emphasized. Code(s): E66.9 - OBESITY, UNSPECIFIED (3) Chest pain Assessment/Plan: Pt became panicked when in "tube" of nuclear camera yesterday. Will order stress ECHO. Code(s): R07.9 - CHEST PAIN, UNSPECIFIED (4) Hyperlipidemia Code(s): E78.5 - HYPERLIPIDEMIA, UNSPECIFIED (5) Erectile dysfunction Assessment/Plan: began with this hospital admission; pt states it has already improved (though metoprolol stopped only for past 24 hours). Metoprolol is a possible cause, and has been discontinued. Code(s): N52.9 - MALE ERECTILE DYSFUNCTION, UNSPECIFIED (6) New onset type 2 diabetes mellitus Assessment/Plan: Pt denies having diabetes, but glucose is elevated. F/u HGBA1C. Code(s): E11.9 - TYPE 2 DIABETES MELLITUS WITHOUT COMPLICATIONS
[2017-01-31 11:04] LABS: CALCIUM 9.2 mg/dL (8.5-10.1); CO2 29 mmol/L (21-32); CREATININE 0.9 mg/dL (0.7-1.3); GLUCOSE,RANDOM 287 mg/dL (74-106)
[2017-01-31 12:06] LABS: ANION GAP 9 (8-16)
[2017-01-31 15:35] VITALS: BMI 41.7
--- NOTE | 2017-01-31 15:35 | CON.NEP ---
Consult Consult Specialty:: Nephrology (Gerry/Alexander) Referred by:: Dr. Naik Reason for Consultation:: Difficult to control hypertension - History of Present Illness Chief Complaint: Chest Pain History of Present Illness: This is a 51 year old Gentleman with PMhx of Pseduotumor cerebri, Legally Blind who presented with SOB and chest pain and found to have uncontrolled new on-set hypertension. Pt was admitted for ACS r/o and now is s/p stress test. Pt started on Amlodpine, Aldactone and Hydralazline for BP control. Pt denies any history of hypertension. Denies any Tobacco use. No hx of recreational drug use. No excessive caffeine use. No hx of CKD. No hx of palpitations, fainting spells. No chest pain at the present time. No SOB, fever, chills, N/V/D. BP is improved now. - History Source History Provided By: Patient Limitations to Obtaining History: No Limitations - Past Medical History Cardio/Vascular: Yes: HTN Pulmonary: No: Asthma - Alcohol/Substance Use Hx Alcohol Use: Yes (occasional) - Smoking History Smoking history: Never smoked Home Medications - Allergies Allergies/Adverse Reactions: Allergies Allergy/AdvReac Type Severity Reaction Status Date / Time No Known Allergies Allergy Verified 01/26/17 10:35 - Home Medications Home Medications: Ambulatory Orders NK [No Known Home Medication] 01/26/17 Family Disease History - Family Disease History Family Disease History: Other: Father (hypertension), Mother (hypertension ) Review of Systems - Review of Systems Constitutional: reports: No Symptoms Eyes: reports: Blind Spots, Blurred Vision HENT: reports: No Symptoms Neck: reports: No Symptoms Cardiovascular: reports: No Symptoms Respiratory: reports: No Symptoms Gastrointestinal: reports: No Symptoms Genitourinary: reports: No Symptoms Musculoskeletal: reports: No Symptoms Neurological: reports: No Symptoms Nephrology Consult - Height Height: 6 ft 4 in - Weight Weight: 342 lb 9.6 oz - BMI Body Mass Index (BMI): 41.7 - Lab Results CBC,BMP: CBC, BMP 01/31/17 10:25 Anion Gap: Anion Gap Anion Gap 9 (8-16) 01/31/17 10:25 - Imaging Chest X-ray: Report Reviewed - Physical Examination Vital Signs: Vital Signs Temperature 98.2 F 01/31/17 07:35 Pulse Rate 112 H 01/31/17 14:02 Respiratory Rate 18 01/31/17 14:02 Blood Pressure 139/85 01/31/17 14:02 O2 Sat by Pulse Oximetry (%) 98 01/31/17 07:36 Constitutional: Yes: Well Nourished, No Distress, Calm Eyes: Yes: Conjunctiva Clear HENT: Yes: Atraumatic Neck: Yes: Supple Cardiovascular: Yes: Regular Rate and Rhythm, S1, S2. No: Murmur, Rub Respiratory: Yes: Regular, CTA Bilaterally Renal/: No: Anuria, Bladder Distention, CVA Tenderness - Right, Rangel Present Edema: No Peripheral Pulses WNL: Yes Problem List - Problems (1) Chest pain Code(s): R07.9 - CHEST PAIN, UNSPECIFIED (2) HTN (hypertension) Code(s): I10 - ESSENTIAL (PRIMARY) HYPERTENSION (3) Hyperlipidemia Code(s): E78.5 - HYPERLIPIDEMIA, UNSPECIFIED (4) Hypertensive crisis without congestive heart failure Code(s): I16.9 - HYPERTENSIVE CRISIS, UNSPECIFIED (5) Obesity Code(s): E66.9 - OBESITY, UNSPECIFIED Assessment/Plan 51 year old Gentleman with PMhx of Pseduotumor cerebri, Legally Blind who presented with SOB and chest pain and found to have uncontrolled new on-set hypertension. Pt was admitted for ACS r/o and now is s/p stress test. #New Onset stage 2 hypertension r/o secondary hypertension given acute onset and level of hypertension secondary work is warranted Will check Renin/Aldosterone ratio, AM Cortisol Levels, UA, Urine PCR, Urine Tox screen Renal Artery Doppler to be done as outpatient (test is not performed as inpatient per the radiology department) ECHO reviewed (not read to have LVH - so hypertension could be of short duration ) Continue present mediations Goal BP < 140/90 Avoid NSAIDs given obesity pt would also benefit from sleep studies Pt can complete work up as outpatient if pt is to be discharged #CHest pain r/o ACS S/p stress ECHO Cardiology following #Obesity Wt loss #Pseduotumor cerebri Supportive care #New onset DM Hgb A1C is 11.9 Thank you Will follow Gerald Munoz DO
[2017-01-31 20:50] LABS: URINE APPEARANCE CLEAR; URINE BILIRUBIN NEGATIVE (NEGATIVE); URINE BLOOD NEGATIVE (NEGATIVE); URINE COLOR YELLOW; URINE GLUCOSE (UA) 3+ (NEGATIVE); URINE KETONE TRACE (NEGATIVE); URINE LEUK ESTERASE NEGATIVE (NEGATIVE); URINE NITRITE NEGATIVE (NEGATIVE); URINE PROTEIN NEGATIVE (NEGATIVE); URINE UROBILINOGEN NEGATIVE mg/dL (0.2-1.0)
[2017-01-31] MEDS: ATORVASTATIN CA 20 MG TABLET (FP) PO SCH (21:18)
--- NOTE | 2017-01-31 21:26 | PN ---
Progress Note, Physician History of Present Illness: No new complaints - Current Medication List Current Medications: Active Medications Acetaminophen (Tylenol -) 650 mg PO Q6H PRN PRN Reason: PAIN Last Admin: 01/28/17 16:42 Dose: 650 mg Amlodipine Besylate (Norvasc -) 10 mg PO DAILY [facility] Last Admin: 01/31/17 09:36 Dose: 10 mg Aspirin (Ecotrin -) 81 mg PO DAILY [facility] Last Admin: 01/31/17 09:36 Dose: 81 mg Atorvastatin Calcium (Lipitor -) 20 mg PO HS [facility] Last Admin: 01/31/17 21:18 Dose: 20 mg Hydralazine HCl (Apresoline -) 50 mg PO TID [facility] Last Admin: 01/31/17 21:18 Dose: 50 mg Spironolactone (Aldactone -) 50 mg PO DAILY [facility] Last Admin: 01/31/17 09:36 Dose: 50 mg - Objective Vital Signs: Vital Signs Temperature 98.0 F 01/31/17 17:00 Pulse Rate 112 H 01/31/17 17:00 Respiratory Rate 18 01/31/17 17:00 Blood Pressure 142/96 01/31/17 17:00 O2 Sat by Pulse Oximetry (%) 98 01/31/17 07:36 Constitutional: Yes: Well Nourished Eyes: Yes: WNL HENT: Yes: WNL Neck: Yes: WNL, Supple Cardiovascular: Yes: WNL, Regular Rate and Rhythm Respiratory: Yes: WNL, Regular, CTA Bilaterally Gastrointestinal: Yes: WNL, Abdomen, Obese Labs: CBC, BMP 01/31/17 10:25 INR, PTT INR 1.10 (0.82-1.09) 01/26/17 11:27 Problem List - Problems (1) Chest pain Assessment/Plan: No further chest pain Awaiting stress test Cont asa Code(s): R07.9 - CHEST PAIN, UNSPECIFIED (2) HTN (hypertension) Assessment/Plan: BP better controlled BB was dc'ed due to erectile dysfunction Monitor heart rate wc is slightly elevated Cont hydralazone/norvasc/spirinolactone Code(s): I10 - ESSENTIAL (PRIMARY) HYPERTENSION (3) New onset type 2 diabetes mellitus Assessment/Plan: Will start metformin Start sliding scale w/ novolog Code(s): E11.9 - TYPE 2 DIABETES MELLITUS WITHOUT COMPLICATIONS (4) Hyperlipidemia Assessment/Plan: Cont lipitor Code(s): E78.5 - HYPERLIPIDEMIA, UNSPECIFIED (5) Obesity Code(s): E66.9 - OBESITY, UNSPECIFIED
[2017-01-31] MEDS: HEPARIN NA (PORCINE) 5,000 UNITS/ML 1ML VIAL SQ SCH (22:27)
[2017-01-31] MEDS: INSULIN SLIDING SCALE (NOVOLOG) 1 VIAL SQ SCH (22:38)
[2017-02-01] MEDS: hydrALAZINE HCL 50 MG TABLET (FP) PO SCH ×2 (06:16→13:32)
[2017-02-01] MEDS: metFORMIN HCL 500 MG TABLET (FP) PO SCH ×2 (06:16→18:26)
[2017-02-01] MEDS: INSULIN SLIDING SCALE (NOVOLOG) 1 VIAL SQ SCH ×3 (06:16→18:26)
[2017-02-01 07:42] LABS: BASOPHIL 0.6 % (0-2.0); EOSINOPHIL 3.3 % (0-4.5); MCH 28.3 pg (25.7-33.7); MCHC 33.5 g/dl (32.0-35.9); MEAN CELL VOLUME 84.3 fl (80-96); MEAN PLT VOLUME 8.5 fl (7.5-11.1); NEUTROPHILS 68.6 % (42.8-82.8); PLATELET COUNT 226 K/MM3 (134-434); RDW 13.5 % (11.9-15.9)
[2017-02-01 08:10] LABS: ALBUMIN 3.7 g/dl (3.4-5.0); ANION GAP 8 (8-16); CALCIUM 8.8 mg/dL (8.5-10.1); CO2 28 mmol/L (21-32); CREATININE 0.9 mg/dL (0.7-1.3); GLUCOSE,RANDOM 259 mg/dL (74-106); SGOT/AST 9 U/L (15-37); SGPT/ALT 21 U/L (12-78)
[2017-02-01 08:11] LABS: ALK PHOS 111 U/L (45-117); BILIRUBIN,TOTAL 0.5 mg/dL (0.2-1.0); TOT PROT 7.2 g/dl (6.4-8.2)
[2017-02-01] MEDS: HEPARIN NA (PORCINE) 5,000 UNITS/ML 1ML VIAL SQ SCH (10:06)
[2017-02-01] MEDS: ASPIRIN COATED 81 MG TABLET.EC PO SCH (10:06)
[2017-02-01] MEDS: SPIRONOLACTONE 25 MG TABLET (FP) PO SCH (10:06)
[2017-02-01] MEDS: amLODIPine BESYLATE 10 MG TABLET (FP) PO SCH (10:06)
--- NOTE | 2017-02-01 11:40 | PN ---
Progress Note, Physician History of Present Illness: The patient is a 51-year-old black male, with a significant past medical history of lumbar shunt, legally blind, obesity, HTN, who presents to the ED with one week of chest pain and 5 days of shortness of breath. Pt states that he was not exerting himself when the chest pain began. He states that he feels as if someone is sitting on the center of his chest. He describes the pain as intermittent, 8/10 in severity, radiating down his left arm, sometimes lasting for hours, with no exacerbating or alleviating factors. He has not taken anything for the pain. Pt states that he came in today because his shortness of breath worsened today while on the bus. He also reports that he was sweating even though the airconditioning was on in the bus. Pts sob is exacerbated when walking up steps. The patient denies any fever, chills, nausea, vomiting, diarrhea, or abdominal pain. He denies any numbness or tingling in his extremities. - Current Medication List Current Medications: Active Medications Acetaminophen (Tylenol -) 650 mg PO Q6H PRN PRN Reason: PAIN Last Admin: 01/28/17 16:42 Dose: 650 mg Amlodipine Besylate (Norvasc -) 10 mg PO DAILY [facility] Last Admin: 02/01/17 10:06 Dose: 10 mg Aspirin (Ecotrin -) 81 mg PO DAILY [facility] Last Admin: 02/01/17 10:06 Dose: 81 mg Atorvastatin Calcium (Lipitor -) 20 mg PO HS [facility] Last Admin: 01/31/17 21:18 Dose: 20 mg Heparin Sodium (Porcine) (Heparin -) 5,000 unit SQ BID [facility] Last Admin: 02/01/17 10:06 Dose: 5,000 unit Hydralazine HCl (Apresoline -) 50 mg PO TID [facility] Last Admin: 02/01/17 06:16 Dose: 50 mg Insulin Aspart (Novolog Vial Sliding Scale -) 1 vial SQ ACHS [facility] PRN Reason: Protocol Last Admin: 02/01/17 06:16 Dose: 6 units Metformin HCl (Glucophage -) 500 mg PO BID@0700,1630 [facility] Last Admin: 02/01/17 06:16 Dose: 500 mg Spironolactone (Aldactone -) 50 mg PO DAILY [facility] Last Admin: 02/01/17 10:06 Dose: 50 mg - Objective Vital Signs: Vital Signs Temperature 98.3 F 02/01/17 10:00 Pulse Rate 103 H 02/01/17 10:00 Respiratory Rate 22 02/01/17 10:00 Blood Pressure 137/94 02/01/17 10:00 O2 Sat by Pulse Oximetry (%) 98 02/01/17 06:00 HENT: Yes: WNL, Atraumatic, Normocephalic Neck: Yes: WNL, Supple, Trachea Midline Cardiovascular: Yes: WNL, Regular Rate and Rhythm Respiratory: Yes: WNL, Regular, CTA Bilaterally Gastrointestinal: Yes: WNL, Normal Bowel Sounds Genitourinary: Yes: WNL Musculoskeletal: Yes: WNL Extremities: Yes: WNL Edema: No Integumentary: Yes: WNL Neurological: Yes: WNL, Alert, Oriented ...Motor Strength: WNL Psychiatric: Yes: WNL Labs: CBC, BMP 02/01/17 05:35 02/01/17 05:35 INR, PTT INR 1.10 (0.82-1.09) 01/26/17 11:27 Assessment/Plan Blood pressure now better controlled. Metoprolol discontinued. Hydralazine increased to 50 mg tid. Amlodipine 10 mg daily. Aldactone 50 mg daily. F/u renal workup. BUN/Cr, electrolytes. Code(s): I10 - ESSENTIAL (PRIMARY) HYPERTENSION (2) Obesity Assessment/Plan: the need to continue losing weight through diet modification, portion control, and increase in exercise was emphasized. Code(s): E66.9 - OBESITY, UNSPECIFIED (3) Chest pain Assessment/Plan: Pt became panicked when in "tube" of nuclear camera yesterday. stress ECHO tds but no ischemia will d/c telemetry Code(s): R07.9 - CHEST PAIN, UNSPECIFIED (4) Hyperlipidemia Code(s): E78.5 - HYPERLIPIDEMIA, UNSPECIFIED (5) Erectile dysfunction Assessment/Plan: began with this hospital admission; pt states it has already improved (though metoprolol stopped only for past 24 hours). Metoprolol is a possible cause, and has been discontinued. Code(s): N52.9 - MALE ERECTILE DYSFUNCTION, UNSPECIFIED (6) New onset type 2 diabetes mellitus Assessment/Plan: Pt denies having diabetes, but glucose is elevated. F/u HGBA1C. Code(s): E11.9 - TYPE 2 DIABETES MELLITUS WITHOUT COMPLICATIONS
--- NOTE | 2017-02-01 11:58 | PN ---
Progress Note (short form) - Note Progress Note: Renal Follow up for difficult to control hypertension Pt seen and examined at the bedside no sob, chest pain, dizziness, N/V/D for discharge today Vital Signs Temperature 98.3 F 02/01/17 10:00 Pulse Rate 103 H 02/01/17 10:00 Respiratory Rate 22 02/01/17 10:00 Blood Pressure 137/94 02/01/17 10:00 O2 Sat by Pulse Oximetry (%) 98 02/01/17 06:00 Intake & Output 01/29/17 01/30/17 01/31/17 02/01/17 23:59 23:59 23:59 23:59 Intake Total 960 880 520 260 Output Total 200 Balance 960 880 320 260 Weight 345 lb 12.8 oz 342 lb 9.6 oz 342 lb 9.6 oz Gen: NAD CVS: RRR Lungs: CTA Abd: Obese, NT/ND Ext: no edema, clubbing or cyanosis Neuro: AAOX3, no focal defects CBC, BMP 02/01/17 05:35 02/01/17 05:35 Current Medications Acetaminophen (Tylenol -) 650 mg PO Q6H PRN PRN Reason: PAIN Last Admin: 01/28/17 16:42 Dose: 650 mg Amlodipine Besylate (Norvasc -) 10 mg PO DAILY [facility] Last Admin: 02/01/17 10:06 Dose: 10 mg Aspirin (Ecotrin -) 81 mg PO DAILY [facility] Last Admin: 02/01/17 10:06 Dose: 81 mg Atorvastatin Calcium (Lipitor -) 20 mg PO HS [facility] Last Admin: 01/31/17 21:18 Dose: 20 mg Heparin Sodium (Porcine) (Heparin -) 5,000 unit SQ BID [facility] Last Admin: 02/01/17 10:06 Dose: 5,000 unit Hydralazine HCl (Apresoline -) 50 mg PO TID [facility] Last Admin: 02/01/17 06:16 Dose: 50 mg Insulin Aspart (Novolog Vial Sliding Scale -) 1 vial SQ ACHS [facility] PRN Reason: Protocol Last Admin: 02/01/17 06:16 Dose: 6 units Metformin HCl (Glucophage -) 500 mg PO BID@0700,1630 [facility] Last Admin: 02/01/17 06:16 Dose: 500 mg Spironolactone (Aldactone -) 50 mg PO DAILY [facility] Last Admin: 02/01/17 10:06 Dose: 50 mg 51 year old Gentleman with PMhx of Pseduotumor cerebri, Legally Blind who presented with SOB and chest pain and found to have uncontrolled new on-set hypertension. Pt was admitted for ACS r/o and now is s/p stress test. #New Onset stage 2 hypertension r/o secondary hypertension given acute onset and level of hypertension secondary work is warranted Will check Renin/Aldosterone ratio, AM Cortisol Levels (sent, results pending) UA w/o proteinuria Renal Artery Doppler to be done as outpatient (test is not performed as inpatient per the radiology department) ECHO reviewed (not read to have LVH - so hypertension could be of short duration ) Continue present mediations Goal BP < 140/90 Avoid NSAIDs given obesity pt would also benefit from sleep studies to be done as outpatient Pt can complete work up as kristian Munoz DO Problem List - Problems (1) Chest pain Code(s): R07.9 - CHEST PAIN, UNSPECIFIED (2) HTN (hypertension) Code(s): I10 - ESSENTIAL (PRIMARY) HYPERTENSION (3) Hyperlipidemia Code(s): E78.5 - HYPERLIPIDEMIA, UNSPECIFIED (4) Hypertensive crisis without congestive heart failure Code(s): I16.9 - HYPERTENSIVE CRISIS, UNSPECIFIED (5) Obesity Code(s): E66.9 - OBESITY, UNSPECIFIED
[2017-02-01] MEDS ORDERED: INSULIN (NOVOLOG) ASPART 100 UNITS/ML 10ML VIAL ONE ×2 (12:04→18:12)
[2017-02-01 21:07] VITALS: BP 154/98; PULSE 107; TEMP 98
== END 2017-02-01 19:13 | disposition home or self-care (01) | DRG 305 ==
LOC: JER 10:23 → JERBED 17:49 → J4W 19:56
PROVIDERS: ADMIT Internal Medicine; ATTEND Internal Medicine
DX: I16.9 Hypertensive crisis, unspecified (principal); Z68.41 Body mass index [BMI] 40.0-44.9, adult; Z71.3 Dietary counseling and surveillance; I44.0 Atrioventricular block, first degree; H54.8 Legal blindness, as defined in USA; E66.8 Other obesity; E78.5 Hyperlipidemia, unspecified; N52.9 Male erectile dysfunction, unspecified; R07.89 Other chest pain; E11.9 Type 2 diabetes mellitus without complications; G93.2 Benign intracranial hypertension
CPT/HCPCS: 36415; 71010-TC; 71275-TC; 80048; 80053; 80061; 81003; 82533; 82550; 82553; 83036; 83721; 83735; 83880; 84443; 84484; 85025; 85379; 85610; 93005; 93010; 93306-TC; 93351; 99285-25; A9502; J1644

== ENCOUNTER 2018-07-29 12:10 | Inpatient (IN) | payer OTHER ==
--- NOTE | 2018-07-29 12:44 | PDOC ---
History of Present Illness - General Chief Complaint: Difficulty with Vision Stated Complaint: VISION PROBLEM Time Seen by Provider: 07/29/18 12:44 - History of Present Illness Initial Comments: 52 year old male with PMH of HTN, NIDDM (on glipezide), HLD, pseudotumer cerberi (complicated with optic neuritis causing legal blindness with lumbar shunt in place) presenting with worsening blurry vision for the past three days. States that he had difficulty seeing the stairs and objects directly in front of his face that has been worsening over the past three days. Denies any fevers, chills, headache, nausea, vomiting, ataxia, or other symptoms. He did have an episode of diarrhea yesterday. He states that this does not feel like his pseudo tumor cerebri because that usually presents with a headache. 07/29/18 12:51 Past History - Past Medical History Allergies/Adverse Reactions: Allergies Allergy/AdvReac Type Severity Reaction Status Date / Time No Known Allergies Allergy Verified 07/29/18 12:31 Home Medications: Ambulatory Orders Amlodipine Besylate 10 mg PO DAILY 07/29/18 Aspirin [ASA -] 81 mg PO DAILY 07/29/18 Atorvastatin Calcium 20 mg PO HS 07/29/18 Glipizide [Glipizide ER] 2.5 mg PO BID 07/29/18 Hydralazine HCl 50 mg PO TID 07/29/18 Metformin HCl [Glucophage] 1,000 mg PO BID 07/29/18 Spironolactone 25 mg PO DAILY 07/29/18 COPD: No Diabetes: Yes HTN: Yes Other medical history: psudocerbre - Suicide/Smoking/Psychosocial Hx Smoking History: Never smoked Have you smoked in the past 12 months: No Information on smoking cessation initiated: No Hx Alcohol Use: No Drug/Substance Use Hx: No Review of Systems - Review of Systems Constitutional: No: Chills, Diaphoresis, Fever, Loss of Appetite HEENTM: Yes: Blurred Vision, Recent change in vision. No: Tearing, Double Vision Respiratory: No: Cough, Orthopnea, Shortness of Breath Cardiac (ROS): No: Chest Pain, Edema, Irregular Heart Rate ABD/GI: No: Diarrhea, Nausea, Vomiting : No: Dysuria, Discharge, Frequency Neurological: No: Headache, Numbness, Paresthesia Psychiatric: No: Anxiety, Depression, Frequent Crying, Stressors Endocrine: No: Excessive Sweating, Flushing Hematologic/Lymphatic: No: Anemia, Blood Clots, Easy Bleeding *Physical Exam - Vital Signs Last Vital Signs Temp Pulse Resp BP Pulse Ox 98.3 F 108 H 20 161/118 H 94 L 07/29/18 12:31 07/29/18 12:31 07/29/18 12:31 07/29/18 12:31 07/29/18 12:31 - Physical Exam General Appearance: Yes: Nourished, Appropriately Dressed. No: Apparent Distress HEENT: positive: EOMI, Normal ENT Inspection, Normal Voice, Other (severely decreased visual acuity with vey poor light detection and new central visual field loss.). negative: HALIMA (no reaction to light) Neck: positive: Trachea midline, Normal Thyroid, Supple. negative: Tender, Rigid Respiratory/Chest: positive: Lungs Clear, Normal Breath Sounds. negative: Chest Tender, Respiratory Distress, Accessory Muscle Use Cardiovascular: positive: Regular Rhythm, Regular Rate Gastrointestinal/Abdominal: positive: Normal Bowel Sounds, Flat, Soft. negative : Tender Musculoskeletal: positive: Normal Inspection Extremity: positive: Normal Capillary Refill, Normal Inspection, Normal Range of Motion. negative: Tender Integumentary: positive: Normal Color, Dry, Warm Neurologic: positive: Fully Oriented, Alert, Normal Mood/Affect, Normal Response Moderate Sedation - Procedure Monitoring Vital Signs: Procedure Monitoring Vital Signs Temperature 98.3 F 07/29/18 12:31 Pulse Rate 108 H 07/29/18 12:31 Respiratory Rate 20 07/29/18 12:31 Blood Pressure 161/118 H 07/29/18 12:31 O2 Sat by Pulse Oximetry (%) 94 L 07/29/18 12:31 ED Treatment Course - LABORATORY CBC & Chemistry Diagram: 07/29/18 13:09 07/29/18 13:09 Medical Decision Making - Medical Decision Making 52 year old male with PMH of peripheral vision loss with legal blindness 2/2 optic neuritis in the setting of Idiopathic Intracranial Hypertension s/p lumbar -peritoneal shunt presenting with three days of worsening central visual acuity and worsening light and color vision. We spoke to the patient's systems analyst developer (Frances Schmitz cell phone [phone]) who states that she hasn't seen him in a while and did not have a neuro-systems analyst developer who could perform an optic nerve fenestration but recommended an [facility] neuroopthalmologist (Dr. Garcia ) or a [facility] neurooptho. We spoke to Dr. Calles (neurology) who saw the patient and recommended diamox [address] Barnes (neurosurgery) who originally recommended the optic fenestration but would like to medically optimize first and possibly revise the shunt before pursuing the optic nerve fenestration. We performed an optic US and saw a widened nerve bundle to 8mm on the left and 7mm on the right corroborating optic neuritis. We gave diamox 500 x1. We also got shunt series that could visualize the shunt but did not comment on patency. Dr. Renteria looked at the shunt and also could not comment on patency. We ordered and abdominal CT without contrast to evaluate the patency to the LP shunt. Dexter cell phone [phone]. Signed out to Dr. Keys pending call back from hospitalists for admission. 07/29/18 18:59 *DC/Admit/Observation/Transfer Diagnosis at time of Disposition: Optic neuritis, Idiopathic intracranial hypertension - Discharge Dispostion Disposition: HOME Condition at time of disposition: Stable Decision to Admit order: Yes - Referrals - Patient Instructions - Post Discharge Activity
--- NOTE | 2018-07-29 12:51 | PDOC ---
Attending Attestation - [facility] HPI: Office number for Bailey Schmitz: [phone] <Bailee Jiang - Last Filed: 07/29/18 19:03> - Resident Resident Name: Cierra Duarte - ED Attending Attestation I have performed the following: I have examined & evaluated the patient, The case was reviewed & discussed with the resident, I agree w/resident's findings & plan, Exceptions are as noted - HPI HPI: 07/29/18 16:27 This patient is a 52 M, with PMHx of b/l legal blindness, Pseudotumor cerebri s/ p LP shunt, DM( NIDDM), HTN, who presents with 3 days of worsening blurry vision. Patient states that his vision has acutely worsened since Monday. He states that he has good R central vision to the point he can read in a very narrow area. Now he states that he could not see the stairs in front of him and is also having trouble seeing lights. His baseline vision in the L eye is very poor and soetimes he can see bright lights on good days and seems to have worsened in that he cant even see bright lights anymore. He states that this doesnt feel like when the shunt is occluded because it is associated with a headache. he denies any heaadche, naseau/vomiting, numbness/tingling/waekness, neck pain, back pain, recent trauma/injuries. Opthamologist: Bailey Schmitz Neuro-opthamologist: Dr. Ben Pimentel - Physicial Exam PE: 07/29/18 15:38 GENERAL: The patient is awake, alert, and fully oriented, Nontoxic - in no acute distress. HEAD: Normocephalic, atraumatic. EYES: R pupil 5mm, L pupil 5mm, nonreactive to light, EOMI, unable to see his disk ENT: Normal voice, Moist mucous membranes. NECK: Normal range of motion, supple LUNGS: Breath sounds equal, clear to auscultation bilaterally. HEART: Regular rate and rhythm, without murmur, rub or gallop. ABDOMEN: Soft, nontender, EXTREMITIES: Normal range of motion, trace edema. NEUROLOGICAL: No facial assymetry, Normal speech, moiving all 4 extremities spontaneously and symmetrically . - Medical Decision Making 07/29/18 13:25 52y y M hx of pseudotumor cerebri s/p ef, dm, htn presents with worsening vision from baseline of tunnel vision with good acuity to barely seeing flashes of light on his R eye. no associated headache, n/v, or other focal neurologic complaints. pts vision exam shows minimal pupillary reaction to light can only see flash of light to R eye when light shined directly into the pupil suspect possible eleavated ICP awaitin gCT we have discussed w neuro and neurosurg & optho recommend diamox by neuro anticipate amission will dw dr. Schmitz regarding possiblened for optic nerve fenestration 07/29/18 17:25 dr[address] Potts and dr. Calles bedside here evaluating the patient will admit for further mangaement for intervention and inpatient ophtho consultation <Dg Quinteros - Last Filed: 08/04/18 09:05>
[2018-07-29 13:26] LABS: BASO % 0.3 % (0-2.0); EOS % 1.1 % (0-4.5); HEMATOCRIT 36.6 % (35.4-49); HEMOGLOBIN 12.5 GM/dL (11.7-16.9); LYMPH % 18.2 % (8-40); MCH 28.8 pg (25.7-33.7); MCHC 34.1 g/dl (32.0-35.9); MEAN CELL VOLUME 84.4 fl (80-96); MEAN PLT VOLUME 8.1 fl (7.5-11.1); NEUT % 72.4 % (42.8-82.8); PLATELET COUNT 209 K/MM3 (134-434); RBC 4.33 M/mm3 (4.00-5.60); WHITE BLOOD COUNT 5.1 K/mm3 (4.0-10.0)
[2018-07-29 13:39] LABS: INR 1.16 (0.83-1.09); PROTHROMBIN TIME (PATIENT) 13.7 SEC (9.7-13.0)
[2018-07-29 13:56] LABS: ALBUMIN 3.7 g/dl (3.4-5.0); ALK PHOS 98 U/L (45-117); ANION GAP 7 MMOL/L (8-16); BILIRUBIN,TOTAL 0.5 mg/dL (0.2-1); BLOOD UREA NITROGEN 10 mg/dL (7-18); CALCIUM 8.7 mg/dL (8.5-10.1); CHLORIDE 99 mmol/L (98-107); CO2 30 mmol/L (21-32); GLUCOSE,RANDOM 286 mg/dL (74-106); POTASSIUM 3.9 mmol/L (3.5-5.1); SGOT/AST 18 U/L (15-37); SGPT/ALT 34 U/L (13-61); SODIUM 136 mmol/L (136-145); TOT PROT 7.3 g/dl (6.4-8.2)
--- NOTE | 2018-07-29 15:54 | CON.NEURO ---
Consult Consult Specialty:: NEUROLOGY-JUSTIN CARTER - History of Present Illness History of Present Illness: 52 year old male with PMH of HTN, NIDDM (on glipezide), HLD, pseudotumer cerberi (complicated with optic neuritis causing legal blindness with lumbar shunt in place), 5 years after shunt placement it was revised, he presenting with worsening blurry vision for the past three days. He at baseline x years has "tunnel vision" Soince Monday has had worsening vision to the point he can only perceive arm movements only in both eyes.States that he had difficulty seeing the stairs and objects directly in front of his face that has been worsening over the past three days. Denies any fevers, chills, headache, nausea, vomiting , ataxia, or other symptoms. He did have an episode of diarrhea yesterday. He states that this does not feel like his pseudo tumor cerebri because that usually presents with a headache. CT head without enlarged vents - Alcohol/Substance Use Hx Alcohol Use: No - Smoking History Smoking history: Never smoked Have you smoked in the past 12 months: No Home Medications - Allergies Allergies/Adverse Reactions: Allergies Allergy/AdvReac Type Severity Reaction Status Date / Time No Known Allergies Allergy Verified 07/29/18 12:31 - Home Medications Home Medications: Ambulatory Orders Amlodipine Besylate 10 mg PO DAILY 07/29/18 Aspirin [ASA -] 81 mg PO DAILY 07/29/18 Atorvastatin Calcium 20 mg PO HS 07/29/18 Glipizide [Glipizide ER] 2.5 mg PO BID 07/29/18 Hydralazine HCl 50 mg PO TID 07/29/18 Metformin HCl [Glucophage] 1,000 mg PO BID 07/29/18 Spironolactone 25 mg PO DAILY 07/29/18 Physical Exam-Neuro Vital Signs: Vital Signs Temperature 98.3 F 07/29/18 12:31 Pulse Rate 108 H 07/29/18 12:31 Respiratory Rate 20 07/29/18 12:31 Blood Pressure 161/118 H 07/29/18 12:31 O2 Sat by Pulse Oximetry (%) 94 L 07/29/18 12:31 Labs: CBC, BMP 07/29/18 13:09 07/29/18 13:09 INR, PTT INR 1.16 (0.83-1.09) H 07/29/18 13:09 - Neuro Exam Eyes: Yes: PERRL (3mm bilat, sluggish. Vision- able to see finger movements only , unable to visualize his fundii?? hazy lenses) DTR's: 0 Left Achilles, 0 Right Achilles, 1+ Left Bicep, 1+ Right Bicep, 1+ Left Tricep, 1+ Right Tricep, 1+ Left Brachioradialis, 1+ Right Brachioradialis Motor Strength: 5/5: Left Arm, Right Arm, Left Leg, Right Leg Assessment/Plan Worsened vision in patient with BIHTN, there are no headaches and no evid. of increased ICP on CT head. Given sudden deterioration of vision still suspect increased ICP?? due to shunt malfx. Alos need to tr/o worsened vision 2/2 retinopathy. Suggest: Shunt series Xray-T/L spine Lasix 20mg x1 now and diamox 500mg bid empirically in case pressure is elevated Ophthalmology consult Neurosx. consultation re shunt?? need for revision vs optic nerve fenestration. Thank you, Miguelina Calles MD
--- NOTE | 2018-07-29 19:17 | PDOC ---
*Physical Exam - Vital Signs Last Vital Signs Temp Pulse Resp BP Pulse Ox 98.1 F 105 H 20 146/88 94 L 07/29/18 16:58 07/29/18 16:58 07/29/18 12:31 07/29/18 16:58 07/29/18 16:58 <Jesus Keys - Last Filed: 07/29/18 19:17> - Vital Signs Last Vital Signs Temp Pulse Resp BP Pulse Ox 98.1 F 105 H 20 146/88 94 L 07/29/18 16:58 07/29/18 16:58 07/29/18 12:31 07/29/18 16:58 07/29/18 16:58 <Promise Pemberton - Last Filed: 07/29/18 21:18> ED Treatment Course - LABORATORY CBC & Chemistry Diagram: 07/29/18 13:09 07/29/18 13:09 - ADDITIONAL ORDERS Additional order review: Laboratory Results 07/29/18 07/29/18 07/29/18 17:09 13:09 13:09 PT with INR INR Sodium 136 Potassium 3.9 Chloride 99 Carbon Dioxide 30 Anion Gap 7 L BUN 10 Creatinine 1.0 Creat Clearance w eGFR > 60 Random Glucose 286 H Calcium 8.7 Total Bilirubin 0.5 AST 18 ALT 34 Alkaline Phosphatase 98 Total Protein 7.3 Albumin 3.7 Blood Type B POSITIVE B POSITIVE Antibody Screen Negative 07/29/18 13:09 PT with INR 13.70 H INR 1.16 H Sodium Potassium Chloride Carbon Dioxide Anion Gap BUN Creatinine Creat Clearance w eGFR Random Glucose Calcium Total Bilirubin AST ALT Alkaline Phosphatase Total Protein Albumin Blood Type Antibody Screen 07/29/18 13:09 RBC 4.33 MCV 84.4 MCHC 34.1 RDW 14.0 MPV 8.1 Neutrophils % 72.4 Lymphocytes % 18.2 Monocytes % 8.0 Eosinophils % 1.1 Basophils % 0.3 - Medications Given in the ED: ED Medications Discontinued Medications Generic Name Dose Route Start Last Admin Trade Name Freq PRN Reason Stop Dose Admin Acetazolamide Sodium 500 mg/ 50 mls @ 100 mls/hr 07/29/18 14:33 07/29/18 15: 19 Dextrose IV 07/29/18 15:02 100 mls/hr ONCE ONE Administration <Jesus Keys - Last Filed: 07/29/18 19:17> - LABORATORY CBC & Chemistry Diagram: 07/29/18 13:09 07/29/18 13:09 - ADDITIONAL ORDERS Additional order review: Laboratory Results 07/29/18 07/29/18 07/29/18 13:09 13:09 13:09 PT with INR 13.70 H INR 1.16 H Sodium 136 Potassium 3.9 Chloride 99 Carbon Dioxide 30 Anion Gap 7 L BUN 10 Creatinine 1.0 Creat Clearance w eGFR > 60 Random Glucose 286 H Calcium 8.7 Total Bilirubin 0.5 AST 18 ALT 34 Alkaline Phosphatase 98 Total Protein 7.3 Albumin 3.7 Blood Type B POSITIVE Antibody Screen Negative 07/29/18 13:09 RBC 4.33 MCV 84.4 MCHC 34.1 RDW 14.0 MPV 8.1 Neutrophils % 72.4 Lymphocytes % 18.2 Monocytes % 8.0 Eosinophils % 1.1 Basophils % 0.3 - Medications Given in the ED: ED Medications Discontinued Medications Generic Name Dose Route Start Last Admin Trade Name Freq PRN Reason Stop Dose Admin Acetazolamide Sodium 500 mg/ 50 mls @ 100 mls/hr 07/29/18 14:33 07/29/18 15: 19 Dextrose IV 07/29/18 15:02 100 mls/hr ONCE ONE Administration <Promise Pemberton - Last Filed: 07/29/18 21:18> Medical Decision Making - Medical Decision Making 07/29/18 19:[address] Duarte. Patient is a 52 yo male w/ pmh of HTN, NIDDM, HLD, pseudotumor cerebrei (c/b optic neuritis w/ lumbar shunt in place) who presents for evaluation of 3 days of worsening blurry vision. Prior team discussed patient with opthalmologist who did not have neuro-whipped topping mixer who could do optic nerve fenestration. Neurology was consulted who recommended diamox 500 BID and involved NSGY. Diamox was given and NSGY will evaluate in house. Patient currently pending abdominal CT w/out contrast to evaluate LP shunt patency after shunt series onable to comment on patency. Will admit to hospitalists. <Jesus Keys - Last Filed: 07/29/18 19:17> - Medical Decision Making 07/29/18 21:18 Patient Name: ZACK SKINNER THIS IS A PRELIMINARY REPORT FROM IMAGING PULLING MACHINE OPERATOR EXAM: CT abdomen and pelvis without contrast IMAGES:550 DATE OF EXAM: 2018-07-29 19:08:19 REASON FOR EXAM: Evaluate lumbar shunt COMPARISON: None Findings: Atelectasis and scarring in lung bases. No pleural effusions. Hepatic steatosis and borderline mild hepatomegaly. Cholelithiasis. The pancreas, adrenal glands, and spleen are grossly unremarkable. Moderate bilateral perinephric edema. Cannot exclude pyelonephritis. Small right renal cyst. Bilateral renal cortical scarring. No renal or urinary calculi. No AAA. No evidence for diverticulitis, appendicitis, small bowel obstruction, free pelvic fluid, or free air. Small left inguinal hernia containing fat. There is likely a reservoir in the left lateral superficial subcutaneous fat. 2 catheters are noted within the left lateral abdominal wall extending from the reservoir to the lumbar spine. One catheter enters the spinal canal at the level L1-L2 coursing cephalad with the tip at the level of T11. The other catheter is discontinuous distally and terminates posterior to the L2 spinous process. A third catheter extends from the reservoir to the left external obliquus muscle. One or more of the following dose reduction techniques were used: automated exposure control, adjustment of the mA and/or kV according to patient size, use of iterative reconstructive technique. <Promise Pemberton - Last Filed: 07/29/18 21:18> *DC/Admit/Observation/Transfer <Jesus Keys - Last Filed: 07/29/18 19:17> <Promise Pemberton - Last Filed: 07/29/18 21:18> Diagnosis at time of Disposition: Optic neuritis, Idiopathic intracranial hypertension - Discharge Dispostion Disposition: HOME Condition at time of disposition: Stable
--- NOTE | 2018-07-29 20:55 | HP ---
Admitting History and Physical - Admission Chief Complaint: worsening vision History of Present Illness: 52 y/o male patient presented to the hospital for worsening vision problem, patient is know to be legally blind, but since monday the patient started to have decreased vision, he stated that he is not able to recognize faces because his vision worsened and became blurry. he denied any other neurological deficit - no headache, nausea, vomiting, ataxia, LOC, syncope, or near syncope. patient denied any chest pain, SOB, VILCHIS. History Source: Patient, Family Member Limitations to Obtaining History: No Limitations - Smoking History Smoking history: Never smoked Have you smoked in the past 12 months: No - Alcohol/Substance Use Hx Alcohol Use: No Home Medications - Allergies Allergies/Adverse Reactions: Allergies Allergy/AdvReac Type Severity Reaction Status Date / Time No Known Allergies Allergy Verified 07/29/18 12:31 - Home Medications Home Medications: Ambulatory Orders Amlodipine Besylate 10 mg PO DAILY 07/29/18 Aspirin [ASA -] 81 mg PO DAILY 07/29/18 Atorvastatin Calcium 20 mg PO HS 07/29/18 Glipizide [Glipizide ER] 2.5 mg PO BID 07/29/18 Hydralazine HCl 50 mg PO TID 07/29/18 Metformin HCl [Glucophage] 1,000 mg PO BID 07/29/18 Spironolactone 25 mg PO DAILY 07/29/18 Physical Examination Vital Signs: Vital Signs Temperature 98.1 F 07/29/18 16:58 Pulse Rate 105 H 07/29/18 16:58 Respiratory Rate 20 07/29/18 12:31 Blood Pressure 146/88 07/29/18 16:58 O2 Sat by Pulse Oximetry (%) 94 L 07/29/18 16:58 Constitutional: Yes: Well Nourished, No Distress, Calm, Obese Eyes: Yes: WNL, Conjunctiva Clear HENT: Yes: WNL, Atraumatic, Normocephalic Neck: Yes: WNL, Supple, Trachea Midline Cardiovascular: Yes: WNL, Regular Rate and Rhythm, S1, S2 Respiratory: Yes: WNL, Regular, CTA Bilaterally Gastrointestinal: Yes: WNL, Normal Bowel Sounds, Soft Musculoskeletal: Yes: WNL Extremities: Yes: WNL Edema: No Peripheral Pulses WNL: Yes Integumentary: Yes: WNL Neurological: Yes: WNL, Alert, Oriented ...Motor Strength: WNL Psychiatric: Yes: WNL, Alert, Oriented Labs: CBC, BMP 07/29/18 13:09 07/29/18 13:09 Imaging - Results Chest X-ray: Image Reviewed Cat Scan: Image Reviewed Problem List - Problems (1) Idiopathic intracranial hypertension Assessment/Plan: admit patient to tele neurology evaluation fall risk neurological exam hold dvt prophylaxis due to possible lumbar puncture Code(s): G93.2 - BENIGN INTRACRANIAL HYPERTENSION (2) Optic neuritis Assessment/Plan: MRI neurological evaluation torr Code(s): H46.9 - UNSPECIFIED OPTIC NEURITIS (3) Type 2 diabetes mellitus Assessment/Plan: insulin sliding scale hold the oral medication Code(s): E11.9 - TYPE 2 DIABETES MELLITUS WITHOUT COMPLICATIONS Qualifiers: Diabetes mellitus oil heaterman insulin use: without oil heaterman use Diabetes mellitus complication status: without complication Qualified Code(s): E11.9 - Type 2 diabetes mellitus without complications (4) HTN (hypertension), benign Assessment/Plan: stable c/w spironolactone c/w amlodipine c/w hydralazine Code(s): I10 - ESSENTIAL (PRIMARY) HYPERTENSION (5) Dyslipidemia (high LDL; low HDL) Assessment/Plan: c/w atorvastatin 20mg hold aspirin for the procedure Code(s): E78.5 - HYPERLIPIDEMIA, UNSPECIFIED (6) Obesity, Class III, BMI 40-49.9 (morbid obesity) Assessment/Plan: restriction of food diabetic diet low cholesterol diet Code(s): E66.01 - MORBID (SEVERE) OBESITY DUE TO EXCESS CALORIES
[2018-07-29] MEDS ORDERED: ATORVASTATIN CA 10 MG TABLET (FP) ONE (22:28)
[2018-07-29] MEDS ORDERED: hydrALAZINE HCL 25 MG TABLET (FP) ONE (22:28)
[2018-07-29] MEDS: hydrALAZINE HCL 50 MG TABLET (FP) PO SCH (22:32)
[2018-07-29] MEDS: ATORVASTATIN CA 20 MG TABLET (FP) PO SCH (22:32)
[2018-07-30 06:59] LABS: HEMATOCRIT 35.5 % (35.4-49); HEMOGLOBIN 12.1 GM/dL (11.7-16.9); MCHC 34.2 g/dl (32.0-35.9); MEAN PLT VOLUME 8.4 fl (7.5-11.1); PLATELET COUNT 204 K/MM3 (134-434); RBC 4.18 M/mm3 (4.00-5.60); RDW 13.8 % (11.9-15.9)
[2018-07-30] MEDS ORDERED: hydrALAZINE HCL 25 MG TABLET (FP) ONE (06:59)
[2018-07-30] MEDS ORDERED: INSULIN (NOVOLOG) ASPART 100 UNITS/ML 10ML VIAL ONE ×3 (07:00→16:52)
[2018-07-30] MEDS: hydrALAZINE HCL 50 MG TABLET (FP) PO SCH ×3 (07:04→21:48)
[2018-07-30] MEDS: INSULIN SLIDING SCALE (NOVOLOG) 1 VIAL SQ SCH ×4 (07:04→21:48)
[2018-07-30 07:50] LABS: ALBUMIN 3.6 g/dl (3.4-5.0); ALK PHOS 86 U/L (45-117); ANION GAP 7 MMOL/L (8-16); BILIRUBIN,TOTAL 0.4 mg/dL (0.2-1); BLOOD UREA NITROGEN 9 mg/dL (7-18); CALCIUM 8.1 mg/dL (8.5-10.1); CHLORIDE 102 mmol/L (98-107); CO2 25 mmol/L (21-32); CREATININE 0.9 mg/dL (0.55-1.3); GLUCOSE,RANDOM 237 mg/dL (74-106); PHOSPHOROUS 4.1 mg/dL (2.5-4.9); POTASSIUM 3.9 mmol/L (3.5-5.1); SGOT/AST 18 U/L (15-37); SGPT/ALT 34 U/L (13-61); SODIUM 135 mmol/L (136-145); TOT PROT 6.9 g/dl (6.4-8.2)
[2018-07-30] MEDS ORDERED: SPIRONOLACTONE 25 MG TABLET (FP) PO SCH (10:00)
--- NOTE | 2018-07-30 10:43 | PN ---
Progress Note, Physician Chief Complaint: patient seen and examined today complaining of worsening vision loss says that he sees white sheet no headache patient is followed by retina specialist as an outpatient - Current Medication List Current Medications: Active Medications Acetazolamide (Diamox -) 500 mg PO BID [facility] Amlodipine Besylate (Norvasc -) 10 mg PO DAILY [facility] Atorvastatin Calcium (Lipitor -) 20 mg PO HS [facility] Last Admin: 07/29/18 22:32 Dose: 20 mg Hydralazine HCl (Apresoline -) 50 mg PO TID [facility] Last Admin: 07/30/18 07:04 Dose: 50 mg Insulin Aspart (Novolog Vial Sliding Scale -) 1 vial SQ TIDAC [facility]; Protocol Last Admin: 07/30/18 07:04 Dose: 2 unit Pantoprazole Sodium (Protonix -) 40 mg PO DAILY [facility] - Objective Vital Signs: Vital Signs Temperature 98.5 F 07/30/18 06:52 Pulse Rate 88 07/30/18 06:52 Respiratory Rate 19 07/30/18 06:52 Blood Pressure 139/68 07/30/18 06:52 O2 Sat by Pulse Oximetry (%) 96 07/30/18 06:52 Constitutional: Yes: Calm Cardiovascular: Yes: Regular Rate and Rhythm, S1, S2 Respiratory: Yes: CTA Bilaterally Gastrointestinal: Yes: Normal Bowel Sounds, Soft, Abdomen, Obese Edema: No Neurological: Yes: Alert, Oriented Labs: CBC, BMP 07/30/18 05:30 07/30/18 05:30 INR, PTT INR 1.16 (0.83-1.09) H 07/29/18 13:09 Problem List - Problems (1) Dyslipidemia (high LDL; low HDL) Assessment/Plan: statin check lipid panel goal of LDL< 100 Code(s): E78.5 - HYPERLIPIDEMIA, UNSPECIFIED (2) Idiopathic intracranial hypertension Assessment/Plan: diamox bid appreciate neurology consult shunt series of thoracic and lumbar spine ordered awaiting result of xray\ NADINE consult pending NPO in case of surgical intervention Code(s): G93.2 - BENIGN INTRACRANIAL HYPERTENSION (3) Type 2 diabetes mellitus Assessment/Plan: sliding scale hgba1c a component of vision changes maybe secondary to DM as well tight glycemic control Code(s): E11.9 - TYPE 2 DIABETES MELLITUS WITHOUT COMPLICATIONS Qualifiers:
--- NOTE | 2018-07-30 10:48 | EKG ---
Test Reason : Blood Pressure : / mmHG Vent. Rate : 106 BPM Atrial Rate : 106 BPM P-R Int : 208 ms QRS Dur : 082 ms QT Int : 340 ms P-R-T Axes : 056 -47 040 degrees QTc Int : 451 ms SINUS TACHYCARDIA LEFT AXIS DEVIATION ABNORMAL ECG NO PREVIOUS ECGS AVAILABLE Confirmed by SAHIL KENT MD ([id number]) on 07/30/2018 10:47:41 AM Referred By: Confirmed By:SAHIL KENT MD
[2018-07-30] MEDS: PANTOPRAZOLE 40 MG TABLET (FP) PO SCH (10:57)
[2018-07-30] MEDS: acetaZOLAMIDE 250 MG TABLET PO SCH ×2 (10:57→22:06)
[2018-07-30] MEDS: amLODIPine BESYLATE 10 MG TABLET (FP) PO SCH (10:57)
[2018-07-30 11:35] LABS: CHOLESTEROL 97 mg/dL (50-200); HDL CHOLESTEROL 28 mg/dL (40-60); TRIGLYCERIDES 80 mg/dL (0-150)
--- NOTE | 2018-07-30 12:53 | PN ---
Problem List - Problems (1) Dyslipidemia (high LDL; low HDL) Code(s): E78.5 - HYPERLIPIDEMIA, UNSPECIFIED (2) Idiopathic intracranial hypertension Code(s): G93.2 - BENIGN INTRACRANIAL HYPERTENSION (3) Type 2 diabetes mellitus Code(s): E11.9 - TYPE 2 DIABETES MELLITUS WITHOUT COMPLICATIONS Qualifiers:
[2018-07-30] MEDS ORDERED: INSULIN (LEVEMIR) 100 UNITS/ML UNITS SQ ONE (15:06)
--- NOTE | 2018-07-30 15:09 | PN ---
Progress Note (short form) - Note Progress Note: spoke to family explained to them bc the patient is on aspirin and risk of bleeding so Lumbar puncture willnot be done by IR also will control bgm, have endocrine see paitent keep NPO tonight for OR in AM for shunt replacement i called dr mare Leggett for optho he is not decorating consultant cannnot come patient to see retinal specialist as an outpatient Problem List - Problems (1) Dyslipidemia (high LDL; low HDL) Code(s): E78.5 - HYPERLIPIDEMIA, UNSPECIFIED (2) Idiopathic intracranial hypertension Code(s): G93.2 - BENIGN INTRACRANIAL HYPERTENSION (3) Type 2 diabetes mellitus Code(s): E11.9 - TYPE 2 DIABETES MELLITUS WITHOUT COMPLICATIONS Qualifiers:
--- NOTE | 2018-07-30 16:13 | CONSULT ---
Consult - text type - Consultation Consultation Note: NEUROSURGERY CONSULTATION Cesar Wills is a 52 year old male with multiple medical problems who presented to the [facility] ER with a several day history of progressive visual decline. The patient is already legally blind due to diabetic retinopathy and is under the care of an [facility] outside [facility]. The patient has undergone Lumbar-Peritoneal shunting in the past for Idiopathic Intracranial Hypertension (formerly termed Pseudotumor Cerebri). The patient's glucose is markedly elevated which may be contributing to his acute visual changes. Radiography of the shunt suggest distal migration and no catheter in the peritoneal space suggesting likely inadequate drainage. 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 Ophthalmology consultation is not immediately available and patient and spouse were offered transfer to a facility with section cutter Ophthalmology. Lumbar Puncture for diagnostic purposes is not possible due to the patient's morbid obesity necessitating IR to perform the procedure, however, the patient has been taking aspirin which makes this a risky endeavor. The patient was started on Diamox to reduce his ICP and in an attempt to protect his optic nerves. The patient's Shaper And Presser does not perform Optic Nerve Sheath fenestration and this represents another reasonable treatment for elevated ICP. I have also offered patient and spouse the opportunity to transfer to a facility where this procedure may be available. The differential diagnosis for his visual decline includes: Hyperglycemic visual change, Retinal disease and elevated Intracranial pressure. Although Intracranial Hypertension cannot be easily diagnosed given the inability to determine response to Lumbar Puncture, the apparent LP shunt malfunction would suggest that LP shunt revision may be appropriate as part of a comprehensive attempt to protect and correct his vision. I discussed the risks, benefits and alternatives to Lumbar Peritoneal Shunt revision with the patient and spouse. I explained that the risks included, but were not limited to: , coma, paralysis, bleeding, infection, CSF leak possibly requiring spinal drainage or additional surgery, shunt system malfunction/malposition/migration and the need for additional surgery. I strongly emphasized my concern that his glucose control be aggressively managed and that we get him under the care of an [facility] [employer]er RANDI to evaluate his retina and consider alternative treatment options such as optic nerve sheath fenestratrion. All questions were answered. Informed consent was obtained. I offered the option of seeking another opinion or another surgeon. After extensive deliberation, all were in agreement with plans for aggressive glucose control under the Hospitalist supervision and preparations for LP shunt revision tomorrow.
--- NOTE | 2018-07-30 16:15 | SPA.PREOP ---
- PRE-OP NOTE Dx: MEDICATION ADMINISTRATION PROFESSIONAL shunt dysfunction Planned Procedure: MEDICATION ADMINISTRATION PROFESSIONAL shunt revision Surgeon: Femi Bragg MD Last Vital Signs Temp Pulse Resp BP Pulse Ox 98.5 F 105 H 18 155/90 96 07/30/18 06:52 07/30/18 14:29 07/30/18 14:29 07/30/18 14:29 07/30/18 14:29 Lab Results WBC 6.0 K/mm3 (4.0-10.0) 07/30/18 05:30 RBC 4.18 M/mm3 (4.00-5.60) 07/30/18 05:30 Hgb 12.1 GM/dL (11.7-16.9) 07/30/18 05:30 Hct 35.5 % (35.4-49) 07/30/18 05:30 MCV 85.0 fl (80-96) 07/30/18 05:30 MCHC 34.2 g/dl (32.0-35.9) 07/30/18 05:30 RDW 13.8 % (11.9-15.9) 07/30/18 05:30 Plt Count 204 K/MM3 (134-434) 07/30/18 05:30 Sodium 135 mmol/L (136-145) L 07/30/18 05:30 Potassium 3.9 mmol/L (3.5-5.1) 07/30/18 05:30 Chloride 102 mmol/L (98-107) 07/30/18 05:30 Carbon Dioxide 25 mmol/L (21-32) 07/30/18 05:30 Anion Gap 7 MMOL/L (8-16) L 07/30/18 05:30 BUN 9 mg/dL (7-18) 07/30/18 05:30 Creatinine 0.9 mg/dL (0.55-1.3) 07/30/18 05:30 Random Glucose 237 mg/dL (74-106) H 07/30/18 05:30 Calcium 8.1 mg/dL (8.5-10.1) L 07/30/18 05:30 Blood Type B POSITIVE 07/29/18 17:09 Antibody Screen Negative 07/29/18 13:09 INR 1.16 (0.83-1.09) H 07/29/18 13:09 - ASSESSMENT/PLAN 1. Make NPO after midnight except po meds 2. GI/DVT PPX 3. Medical optimization / clearance 4. Consent to be obtained by surgeon after risks, benefits and alternatives discussed with patient and or Health Care Proxy. Visit type - Case Type Case Type: ED Admission - Emergency Emergency Visit: Yes ED Registration Date: 07/29/18 Care time: The patient presented to the Emergency Department on the above date and was hospitalized for further evaluation of their emergent condition. - New patient This patient is new to me today: Yes Date on this admission: 07/30/18
[2018-07-30] MEDS ORDERED: INSULIN SLIDING SCALE (NOVOLOG) 1 VIAL SQ SCH (16:30)
[2018-07-30 17:32] VITALS: BMI 44.9
[2018-07-30] MEDS ORDERED: PT OWN MED DRAWER 7, Y5N ONE (21:44)
--- NOTE | 2018-07-30 21:45 | PN ---
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 He at baseline x years has "tunnel vision" Soince Lenin has had worsening vision to the point he can only perceive arm movements only in both eyes.States that he had difficulty seeing the stairs and objects directly in front of his face that has been worsening over the past three days. Denies any fevers, chills, headache, nausea, vomiting , ataxia, or other symptoms. He did have an episode of diarrhea yesterday. He states that this does not feel like his pseudo tumor cerebri because that usually presents with a headache. CT head without enlarged vents -Events/Dr. Johnson's/'s input noted and appreciated. Tonight reports no change in his vision compared to yesterday-can make out figures on TV. Denies TERESA. LP to measure could not be performed by IR-according to IR cannot be performed if pt. has been taking ASA, ophth. consultation not available today. Agree with Dr. Bragg's assessment/plan for shunt revision tomorrow. - Current Medication List Current Medications: Active Medications Acetazolamide (Diamox -) 500 mg PO BID [facility] Last Admin: 07/30/18 10:57 Dose: 500 mg Amlodipine Besylate (Norvasc -) 10 mg PO DAILY [facility] Last Admin: 07/30/18 10:57 Dose: 10 mg Atorvastatin Calcium (Lipitor -) 20 mg PO HS [facility] Last Admin: 07/29/18 22:32 Dose: 20 mg Hydralazine HCl (Apresoline -) 50 mg PO TID [facility] Last Admin: 07/30/18 14:17 Dose: 50 mg Insulin Aspart (Novolog Vial Sliding Scale -) 1 vial SQ [facility]; Protocol Last Admin: 07/30/18 16:48 Dose: 4 units Insulin Detemir (Levemir Vial) 10 units SQ [facility] Pantoprazole Sodium (Protonix -) 40 mg PO DAILY [facility] Last Admin: 07/30/18 10:57 Dose: 40 mg - Objective Vital Signs: Vital Signs Temperature 98.3 F 07/30/18 16:53 Pulse Rate 112 H 07/30/18 16:53 Respiratory Rate 20 07/30/18 16:53 Blood Pressure 127/73 07/30/18 16:53 O2 Sat by Pulse Oximetry (%) 96 07/30/18 16:53 Labs: CBC, BMP 07/30/18 05:30 07/30/18 05:30 INR, PTT INR 1.16 (0.83-1.09) H 07/29/18 13:09
[2018-07-30] MEDS: ATORVASTATIN CA 20 MG TABLET (FP) PO SCH (21:48)
--- NOTE | 2018-07-30 23:43 | CONSULT ---
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 He at baseline x years has"tunnel vision" he has had worsening vision to the point he can only perceive arm movements only in both eyes.States that he had difficulty seeing objects directly in front of his face that has been worsening . Denies any trauma,fevers, chills, headache, nausea, vomiting, ataxia, he has had difficulty checking blood sugars since his vision has worsened using regular glucometers. - Alcohol/Substance Use Hx Alcohol Use: No - Smoking History Smoking history: Never smoked Have you smoked in the past 12 months: No Home Medications - Allergies Allergies/Adverse Reactions: Allergies Allergy/AdvReac Type Severity Reaction Status Date / Time No Known Allergies Allergy Verified 01/26/17 10:35 - Home Medications Home Medications: Ambulatory Orders Amlodipine Besylate [Norvasc -] 10 mg PO DAILY #30 tablet 02/01/17 Aspirin Coated [Ecotrin -] 81 mg PO DAILY #30 tab 02/01/17 Atorvastatin Ca [Lipitor] 20 mg PO HS #30 tablet 02/01/17 hydrALAZINE HCL [Apresoline -] 50 mg PO TID #90 tablet 02/01/17 metFORMIN HCL [Glucophage -] 500 mg PO BID@0700,1630 #60 tablet 02/01/17 Amlodipine Besylate 10 mg PO DAILY 07/29/18 Aspirin [ASA -] 81 mg PO DAILY 07/29/18 Atorvastatin Calcium 20 mg PO HS 07/29/18 Glipizide [Glipizide ER] 2.5 mg PO BID 07/29/18 Hydralazine HCl 50 mg PO TID 07/29/18 Metformin HCl [Glucophage] 1,000 mg PO BID 07/29/18 Spironolactone 25 mg PO DAILY 07/29/18 Review of Systems - Review of Systems Constitutional: reports: Weakness Eyes: reports: Blind Spots, Recent Change in Vision HENT: reports: No Symptoms Neck: reports: No Symptoms Cardiovascular: reports: Shortness of Breath Respiratory: reports: Exercise Intolerance, SOB on Exertion Gastrointestinal: reports: Constipation Genitourinary: reports: No Symptoms Breasts: reports: No Symptoms Reported Musculoskeletal: reports: Muscle Cramps, Muscle Weakness Endocrine: reports: Unexplained Weight Gain Physical Exam Vital Signs: Vital Signs Temperature 98 F 07/30/18 22:00 Pulse Rate 82 07/30/18 22:00 Respiratory Rate 20 07/30/18 22:00 Blood Pressure 130/72 07/30/18 22:00 O2 Sat by Pulse Oximetry (%) 96 07/30/18 21:00 Constitutional: Yes: Anxious Eyes: Yes: Ptosis HENT: Yes: Normocephalic Neck: Yes: Trachea Midline Cardiovascular: Yes: Regular Rate and Rhythm Respiratory: Yes: CTA Bilaterally Gastrointestinal: Yes: Normal Bowel Sounds ...Rectal Exam: Yes: Deferred Extremities: Yes: WNL Neurological: Yes: Alert, Oriented Labs: CBC, BMP 07/30/18 05:30 07/30/18 05:30 Problem List - Problems (1) Dyslipidemia (high LDL; low HDL) Code(s): E78.5 - HYPERLIPIDEMIA, UNSPECIFIED (2) HTN (hypertension), benign Code(s): I10 - ESSENTIAL (PRIMARY) HYPERTENSION (3) Idiopathic intracranial hypertension Code(s): G93.2 - BENIGN INTRACRANIAL HYPERTENSION (4) Obesity, Class III, BMI 40-49.9 (morbid obesity) Code(s): E66.01 - MORBID (SEVERE) OBESITY DUE TO EXCESS CALORIES (5) Type 2 diabetes mellitus Code(s): E11.9 - TYPE 2 DIABETES MELLITUS WITHOUT COMPLICATIONS Qualifiers: Assessment/Plan Current Active Problems Dyslipidemia (high LDL; low HDL) (Acute) HTN (hypertension), benign (Acute) Idiopathic intracranial hypertension (Acute) Obesity, Class III, BMI 40-49.9 (morbid obesity) (Acute) Obstructed SIZE CHANGER shunt (Acute) Optic neuritis (Acute) Type 2 diabetes mellitus (Acute) Abnormal Lab Results 07/30/18 07/30/18 05:30 05:30 Sodium 135 L Anion Gap 7 L Random Glucose 237 H Hemoglobin A1c % 9.6 H Calcium 8.1 L HDL Cholesterol 28 L Laboratory Results - last 24 hr 07/30/18 07/30/18 07/30/18 05:30 05:30 05:30 WBC 6.0 RBC 4.18 Hgb 12.1 Hct 35.5 MCV 85.0 MCH 29.0 MCHC 34.2 RDW 13.8 Plt Count 204 MPV 8.4 Sodium 135 L Potassium 3.9 Chloride 102 Carbon Dioxide 25 Anion Gap 7 L BUN 9 Creatinine 0.9 Creat Clearance w eGFR > 60 POC Glucometer Random Glucose 237 H Hemoglobin A1c % 9.6 H Calcium 8.1 L Phosphorus 4.1 Magnesium 2.0 Total Bilirubin 0.4 AST 18 ALT 34 Alkaline Phosphatase 86 Total Protein 6.9 Albumin 3.6 Triglycerides 80 Cholesterol 97 Total LDL Cholesterol 54 HDL Cholesterol 28 L 07/30/18 07/30/18 07/30/18 06:57 11:50 16:48 WBC RBC Hgb Hct MCV MCH MCHC RDW Plt Count MPV Sodium Potassium Chloride Carbon Dioxide Anion Gap BUN Creatinine Creat Clearance w eGFR POC Glucometer [phone] 233 Random Glucose Hemoglobin A1c % Calcium Phosphorus Magnesium Total Bilirubin AST ALT Alkaline Phosphatase Total Protein Albumin Triglycerides Cholesterol Total LDL Cholesterol HDL Cholesterol 07/30/18 21:47 WBC RBC Hgb Hct MCV MCH MCHC RDW Plt Count MPV Sodium Potassium Chloride Carbon Dioxide Anion Gap BUN Creatinine Creat Clearance w eGFR POC Glucometer 217 Random Glucose Hemoglobin A1c % Calcium Phosphorus Magnesium Total Bilirubin AST ALT Alkaline Phosphatase Total Protein Albumin Triglycerides Cholesterol Total LDL Cholesterol HDL Cholesterol plan: bgm qid novolog insulin doses levemir 15 units hs titrate dose as tolerated cgms as outpatient for glucose monitoring stability and control.
[2018-07-31] MEDS: hydrALAZINE HCL 50 MG TABLET (FP) PO SCH ×3 (05:50→21:59)
[2018-07-31] MEDS: INSULIN SLIDING SCALE (NOVOLOG) 1 VIAL SQ SCH ×3 (06:57→16:28)
[2018-07-31 07:47] LABS: BASO % 0.5 % (0-2.0); EOS % 1.7 % (0-4.5); HEMATOCRIT 37.7 % (35.4-49); HEMOGLOBIN 12.5 GM/dL (11.7-16.9); LYMPH % 23.3 % (8-40); MCH 28.5 pg (25.7-33.7); MCHC 33.2 g/dl (32.0-35.9); MEAN CELL VOLUME 85.9 fl (80-96); MEAN PLT VOLUME 8.6 fl (7.5-11.1); MONO % 7.6 % (3.8-10.2); NEUT % 66.9 % (42.8-82.8); PLATELET COUNT 224 K/MM3 (134-434); RBC 4.39 M/mm3 (4.00-5.60); WHITE BLOOD COUNT 6.9 K/mm3 (4.0-10.0)
[2018-07-31 07:58] LABS: ALBUMIN 3.6 g/dl (3.4-5.0); ALK PHOS 86 U/L (45-117); ANION GAP 9 MMOL/L (8-16); BILIRUBIN,TOTAL 0.4 mg/dL (0.2-1); BLOOD UREA NITROGEN 13 mg/dL (7-18); CALCIUM 8.6 mg/dL (8.5-10.1); CHLORIDE 106 mmol/L (98-107); CO2 21 mmol/L (21-32); GLUCOSE,RANDOM 268 mg/dL (74-106); POTASSIUM 4.2 mmol/L (3.5-5.1); SGOT/AST 19 U/L (15-37); SGPT/ALT 37 U/L (13-61); SODIUM 136 mmol/L (136-145); TOT PROT 7.1 g/dl (6.4-8.2)
--- NOTE | 2018-07-31 09:00 | PN ---
Progress Note (short form) - Note Progress Note: Patient with severe pseudotumor cerebrii and deterioration of vision, now being considered for shunting to protect his residual vision. Not currently in much pain, but vision is significantly compromised. For shunting.
--- NOTE | 2018-07-31 09:07 | PN ---
Progress Note, Physician - Current Medication List Current Medications: Active Medications Acetazolamide (Diamox -) 500 mg PO BID [facility] Last Admin: 07/30/18 22:06 Dose: 500 mg Amlodipine Besylate (Norvasc -) 10 mg PO DAILY [facility] Last Admin: 07/30/18 10:57 Dose: 10 mg Atorvastatin Calcium (Lipitor -) 20 mg PO HS [facility] Last Admin: 07/30/18 21:48 Dose: 20 mg Hydralazine HCl (Apresoline -) 50 mg PO TID [facility] Last Admin: 07/31/18 05:50 Dose: 50 mg Insulin Aspart (Novolog Vial Sliding Scale -) 1 vial SQ [facility]; Protocol Last Admin: 07/31/18 06:57 Dose: Not Given Insulin Detemir (Levemir Vial) 15 units SQ [facility] Pantoprazole Sodium (Protonix -) 40 mg PO DAILY [facility] Last Admin: 07/30/18 10:57 Dose: 40 mg - Objective Vital Signs: Vital Signs Temperature 97.7 F 07/31/18 05:00 Pulse Rate 105 H 07/31/18 05:00 Respiratory Rate 16 07/31/18 05:00 Blood Pressure 138/74 07/31/18 05:00 O2 Sat by Pulse Oximetry (%) 96 07/30/18 21:00 Cardiovascular: Yes: S1, S2 Respiratory: Yes: Regular, CTA Bilaterally Gastrointestinal: Yes: Normal Bowel Sounds, Soft Edema: No Neurological: Yes: Alert Labs: CBC, BMP 07/31/18 06:30 07/31/18 06:30 INR, PTT INR 1.16 (0.83-1.09) H 07/29/18 13:09 Problem List - Problems (1) Idiopathic intracranial hypertension Assessment/Plan: - diamox bid appreciate neurology consult NADINE consult NPO for the or today Code(s): G93.2 - BENIGN INTRACRANIAL HYPERTENSION (2) Vision loss of right eye Assessment/Plan: -Opthomolgy Consult Code(s): H54.61 - UNQUALIFIED VISUAL LOSS, RIGHT EYE, NORMAL VISION LEFT EYE (3) Type 2 diabetes mellitus Assessment/Plan: sliding scale hgba1c tight glycemic control Code(s): E11.9 - TYPE 2 DIABETES MELLITUS WITHOUT COMPLICATIONS Qualifiers: (4) HTN (hypertension) Code(s): I10 - ESSENTIAL (PRIMARY) HYPERTENSION
[2018-07-31] MEDS: amLODIPine BESYLATE 10 MG TABLET (FP) PO SCH (09:31)
[2018-07-31] MEDS: PANTOPRAZOLE 40 MG TABLET (FP) PO SCH (10:22)
[2018-07-31] MEDS: acetaZOLAMIDE 250 MG TABLET PO SCH ×2 (10:22→21:59)
[2018-07-31] MEDS ORDERED: BUPIVACAINE HCL/PF 0.5% (5MG/ML) 10 ML VIAL ONE (12:24)
[2018-07-31] MEDS ORDERED: LIDOCAINE 1%-EPI 1:100,000 30 ML MDV IJ ONE (12:24)
[2018-07-31] MEDS ORDERED: GENTAMICIN SO4 80 MG/2 ML VIAL ONE (12:26)
[2018-07-31] MEDS ORDERED: ROCURONIUM BROMIDE 50 MG/5 ML VIAL ONE ×3 (13:41→16:37)
[2018-07-31] MEDS ORDERED: PROPOFOL 20 ML ONE ×3 (13:41→15:58)
[2018-07-31] MEDS ORDERED: MIDAZOLAM HCL 2 MG/2 ML SINGLE DOSE VIAL ONE ×3 (13:42→18:06)
[2018-07-31] MEDS ORDERED: LIDOCAINE HCL/PF 2% SDV 5ML VIAL ONE (13:43)
[2018-07-31] MEDS ORDERED: ceFAZolin SODIUM 1 GM VIAL ONE (14:09)
[2018-07-31] MEDS ORDERED: SODIUM CHLORIDE 0.9% P/F 10 ML VIAL IJ ONE (14:09)
[2018-07-31] MEDS ORDERED: ceFAZolin SODIUM 1 GM VIAL IVPB ONE (14:10)
[2018-07-31] MEDS ORDERED: VANCOMYCIN 1,000 MG VIAL (RESTRICTED TO ID ONLY) ONE (14:11)
[2018-07-31] MEDS ORDERED: DEXAMETHASONE SOD PHOSPHATE 4 MG/1 ML VIAL ONE (14:13)
[2018-07-31] MEDS ORDERED: VANCOMYCIN 1,000 MG VIAL (RESTRICTED TO ID ONLY) IVPB ONE (14:14)
[2018-07-31] MEDS ORDERED: LIDOCAINE 1%/EPI 1:100000 (50 ML MULTI DOSE VIAL) NR ONE (14:20)
[2018-07-31] MEDS ORDERED: GENTAMICIN 80MG PREMIX BAG IVPB ONE (14:21)
[2018-07-31] MEDS ORDERED: BACITRACIN 50,000 UNITS VIAL TP ONE (14:21)
[2018-07-31] MEDS ORDERED: ACETAMINOPHEN INJECTION 100 ML IVPB ONE (14:31)
[2018-07-31] MEDS ORDERED: THROMBIN (BOVINE) 5,000 UNIT VIAL TP ONE (14:38)
[2018-07-31] MEDS ORDERED: HYDROGEN PEROXIDE 473 ML PO ONE (14:38)
[2018-07-31] MEDS ORDERED: fentaNYL CITRATE 250 MCG/5 ML VIAL ONE ×2 (16:30→22:03)
[2018-07-31] MEDS ORDERED: NEOSTIGMINE METHYLSULFATE 0.5 MG/1 ML - 10 ML MDV ONE (16:30)
[2018-07-31] MEDS ORDERED: diphenhydrAMINE HCL 25 MG CAPSULE (FP) PO PRN (18:13)
[2018-07-31] MEDS ORDERED: MIDAZOLAM HCL 5 MG/1 ML Single Dose Vial ONE (18:30)
[2018-07-31] MEDS: MIDAZOLAM HCL 2 MG/2 ML SINGLE DOSE VIAL IVPUSH ONE ×2 (18:30→19:40)
[2018-07-31] MEDS: LACTATED RINGERS SOLUTION 1,000 ML/1,000 ML INFUS.BAG IV SCH (18:45)
[2018-07-31] MEDS ORDERED: LACTATED RINGERS SOLUTION 1,000 ML IV SCH (19:15)
[2018-07-31] MEDS ORDERED: INSULIN (LEVEMIR) 100 UNITS/ML UNITS SQ ONE (19:34)
[2018-07-31] MEDS ORDERED: PROPOFOL 1,000,000 MCG/100 ML VIAL IVPB SCH (19:45)
[2018-07-31 20:41] LABS: ARTERIAL BLD GAS O2 SATURATION 98.8 % (90-98.9); ARTERIAL BLOOD GAS BASE EXCESS -8.2 meq/l (-2-2); ARTERIAL BLOOD GAS PCO2 45.5 mmHg (35-45); ARTERIAL BLOOD GAS pH 7.24 (7.35-7.45)
[2018-07-31 20:42] LABS: ALLENS TEST POSITIVE
--- NOTE | 2018-07-31 20:56 | CONSULT ---
Consult Consult Specialty:: ICU Reason for Consultation:: post-op ICU monitoring - History of Present Illness Chief Complaint: vision changes History of Present Illness: pt is intubated and sedated. POD#0 - revision of shunt chart reviewed for medical history and HPI. 52 yr old man with uncontrolled DM, hx of diabetic retinopathy and - Alcohol/Substance Use Hx Alcohol Use: No - Smoking History Smoking history: Never smoked Have you smoked in the past 12 months: No Home Medications - Allergies Allergies/Adverse Reactions: Allergies Allergy/AdvReac Type Severity Reaction Status Date / Time No Known Allergies Allergy Verified 01/26/17 10:35 - Home Medications Home Medications: Ambulatory Orders Amlodipine Besylate [Norvasc -] 10 mg PO DAILY #30 tablet 02/01/17 Aspirin Coated [Ecotrin -] 81 mg PO DAILY #30 tab 02/01/17 Atorvastatin Ca [Lipitor] 20 mg PO HS #30 tablet 02/01/17 hydrALAZINE HCL [Apresoline -] 50 mg PO TID #90 tablet 02/01/17 metFORMIN HCL [Glucophage -] 500 mg PO BID@0700,1630 #60 tablet 02/01/17 Amlodipine Besylate 10 mg PO DAILY 07/29/18 Aspirin [ASA -] 81 mg PO DAILY 07/29/18 Atorvastatin Calcium 20 mg PO HS 07/29/18 Glipizide [Glipizide ER] 2.5 mg PO BID 07/29/18 Hydralazine HCl 50 mg PO TID 07/29/18 Metformin HCl [Glucophage] 1,000 mg PO BID 07/29/18 Spironolactone 25 mg PO DAILY 07/29/18 Physical Exam Vital Signs: Vital Signs Temperature 98.0 F 07/31/18 09:00 Pulse Rate 106 H 07/31/18 09:00 Respiratory Rate 07/31/18 18:30 Blood Pressure 132/82 07/31/18 09:00 O2 Sat by Pulse Oximetry (%) 96 07/30/18 21:00 Labs: CBC, BMP 07/31/18 06:30 07/31/18 06:30 Assessment/Plan 52 yr old man with DM presented with vision changes found to require revision of CANVASS MANAGER shunt, now post-op day #0 being monitored in the ICU. Neuro - intubated and sedated, baseline pt is alert and oriented x3 - decr sedation(propofol) in the morning to assess mental status neurosurg consult Dr. Bragg Cardio - hold po medications acutely post-op Pulm - intubated with ABG showing acute (uncompensated) primary respiratory acidosis, with normal anion gap metabolic acidosis - pt was extubated post-op but began desaturating and needed to be [facility]int[facility]ated [facility] vent tonight, repeat abg and plan for wean trial in the AM Renal abdullahi in place GI - NPO Endo - DM - BGM ACHS with NISS
[2018-07-31] MEDS ORDERED: FENTANYL INJECTION 500 MCG in DEXTROSE 5%-WATER - 90 ML IVPB SCH (21:15)
[2018-07-31] MEDS: DOCUSATE SODIUM 100 MG CAPSULE (FP) PO SCH (21:59)
[2018-07-31] MEDS: ATORVASTATIN CA 20 MG TABLET (FP) PO SCH (21:59)
[2018-07-31] MEDS ORDERED: INSULIN (LEVEMIR) 100 UNITS/ML UNITS SQ SCH ×2 (22:00)
[2018-07-31] MEDS ORDERED: MUPIROCIN 2% TOPICAL OINTMENT FOR DECOLONIZATION NS SCH (22:00)
[2018-07-31] MEDS ORDERED: INSULIN SLIDING SCALE (NOVOLOG) 1 VIAL SQ SCH (22:00)
[2018-07-31] MEDS ORDERED: CHLORHEXIDINE GLUCONATE 4% CLEANSER FOR DECOLONIZATION TP SCH (22:00)
[2018-07-31] MEDS: INSULIN (LEVEMIR) 100 UNITS/ML UNITS SQ SCH (22:19)
[2018-07-31 23:40] LABS: ARTERIAL BLD GAS O2 SATURATION 98.8 % (90-98.9); ARTERIAL BLOOD GAS BASE EXCESS -5.7 meq/l (-2-2); ARTERIAL BLOOD GAS PCO2 43.1 mmHg (35-45); ARTERIAL BLOOD GAS pH 7.29 (7.35-7.45)
[2018-07-31 23:41] LABS: ALLENS TEST POSITIVE
[2018-08-01] MEDS ORDERED: fentaNYL CITRATE 250 MCG/5 ML VIAL ONE (00:29)
[2018-08-01] MEDS: INSULIN SLIDING SCALE (NOVOLOG) 1 VIAL SQ SCH ×8 (00:56→21:02)
[2018-08-01] MEDS ORDERED: HEMOQUE CONTROL SOLUTION ONE (01:12)
[2018-08-01] MEDS: CEFAZOLIN 1 GM/D5W 1 GM/50 ML BAG IVPB SCH ×3 (01:30→17:03)
[2018-08-01 02:33] LABS: ARTERIAL BLD GAS O2 SATURATION 98.8 % (90-98.9); ARTERIAL BLOOD GAS BASE EXCESS -4.2 meq/l (-2-2); ARTERIAL BLOOD GAS PCO2 40.2 mmHg (35-45); ARTERIAL BLOOD GAS pH 7.33 (7.35-7.45)
[2018-08-01 02:34] LABS: ALLENS TEST POSITIVE
[2018-08-01] MEDS: DOCUSATE SODIUM 100 MG CAPSULE (FP) PO SCH ×3 (05:54→21:01)
[2018-08-01] MEDS: hydrALAZINE HCL 50 MG TABLET (FP) PO SCH ×3 (05:54→21:02)
[2018-08-01] MEDS: HEPARIN NA (PORCINE) 5,000 UNITS/ML 1ML VIAL SQ SCH ×3 (05:54→21:03)
[2018-08-01 06:02] LABS: HEMATOCRIT 34.1 % (35.4-49); HEMOGLOBIN 11.6 GM/dL (11.7-16.9); MCHC 34.1 g/dl (32.0-35.9); MEAN CELL VOLUME 85.3 fl (80-96); MEAN PLT VOLUME 8.4 fl (7.5-11.1); PLATELET COUNT 228 K/MM3 (134-434); WHITE BLOOD COUNT 9.8 K/mm3 (4.0-10.0)
[2018-08-01 06:23] LABS: ANION GAP 6 MMOL/L (8-16); BLOOD UREA NITROGEN 11 mg/dL (7-18); CALCIUM 8.1 mg/dL (8.5-10.1); CHLORIDE 106 mmol/L (98-107); CO2 25 mmol/L (21-32); CREATININE 1.2 mg/dL (0.55-1.3); GLUCOSE,RANDOM 253 mg/dL (74-106); SODIUM 137 mmol/L (136-145)
--- NOTE | 2018-08-01 07:25 | OP ---
Operative Note - Note: Operative Date: 07/31/18 Pre-Operative Diagnosis: Malfunctioning LP shunt, Acute vision loss Operation: LP shunt, hemilaminectomy Post-Operative Diagnosis: Same as Pre-op Surgeon: Femi Bragg Senior Director Insight: Jose Martin Ulrich Anesthesia: General Estimated Blood Loss (mls): 1,000 Drains, Volume Out (mls): 150 Fluid Volume Replaced (mls): 2,300 Operative Report Dictated: Yes
--- NOTE | 2018-08-01 07:27 | PN ---
Progress Note (short form) - Note Progress Note: POD #1 s/p LP shunt, hemilaminectomy No acute events over night per RN notes. Patient reintubated s/p extubation at end of case secondary to desaturation. Placed in ICU, vented/sedated. ABD in ICU: acute (uncompensated) primary respiratory acidosis, with normal anion gap metabolic acidosis. Last Vital Signs Temp Pulse Resp BP Pulse Ox 98.5 F 93 H 16 126/85 100 08/01/18 06:43 08/01/18 06:43 08/01/18 06:43 08/01/18 06:43 07/31/18 22:50 CBC, BMP 08/01/18 05:15 08/01/18 05:15 ABG Results ABG pH 7.33 (7.35-7.45) L 08/01/18 02:25 ABG pCO2 at Pt Temp 40.2 mmHg (35-45) 08/01/18 02:25 ABG pO2 at Pt Temp 155.0 mmHg (80-100) H* 08/01/18 02:25 ABG HCO3 20.8 meq/L (22-26) L 08/01/18 02:25 ABG O2 Sat (Measured) 98.8 % (90-98.9) 08/01/18 02:25 ABG O2 Content 15.8 % vol (15-22) 08/01/18 02:25 ABG Base Excess -4.2 meq/l (-2-2) L 08/01/18 02:25 INR, PTT INR 1.16 (0.83-1.09) H 07/29/18 13:09 OUTPUT 07/31/18 08/01/18 23:00 06:00 Abdullahi 300 1,800 Gen: intubated ABD: transverse incision left of midline c/d/i. Left flank incision c/d/i BACK: Lumbar incision c/d/i : Abdullahi to gravity (as above) LE: SCDs bilat Problem List - Problems (1) Obstructed GALLEY COOK shunt Assessment/Plan: POD #1 s/p Hemilaminectomy (Left), placement of new LP shunt Per ICU resident, patient did well over night. His morning ABG shows resolution of acute uncompensated respiratory acidosis. Wean to extubate Once extubated, begin clear liquid diet and advance as tolerated. Ophthalmology Consult DORIS abdullahi once extubated and begin trial of void Tight glycemic control DVT PPX via SCDs and Heparin 5000 SQ TID OOB and ambulate with PT assist once extubated Downgrade to floor at ICU discretion (2) Idiopathic intracranial hypertension Code(s): G93.2 - BENIGN INTRACRANIAL HYPERTENSION (3) Type 2 diabetes mellitus Code(s): E11.9 - TYPE 2 DIABETES MELLITUS WITHOUT COMPLICATIONS Qualifiers: (4) Vision loss of right eye Code(s): H54.61 - UNQUALIFIED VISUAL LOSS, RIGHT EYE, NORMAL VISION LEFT EYE (5) Obesity Code(s): E66.9 - OBESITY, UNSPECIFIED
--- NOTE | 2018-08-01 09:33 | PN ---
Progress Note, Physician Chief Complaint: S/P LP SHUNT REVISION EXTUBATED IN ICU AWAKE EVENTS AND NOTES REVIEWED - Current Medication List Current Medications: Active Medications Acetazolamide (Diamox -) 500 mg PO BID [facility] Last Admin: 07/31/18 21:59 Dose: Not Given Amlodipine Besylate (Norvasc -) 10 mg PO DAILY [facility] Atorvastatin Calcium (Lipitor -) 20 mg PO HS [facility] Last Admin: 07/31/18 21:59 Dose: Not Given Diphenhydramine HCl (Benadryl -) 25 mg PO Q6H PRN PRN Reason: FOR ITCHING Docusate Sodium (Colace -) 100 mg PO TID [facility] Last Admin: 08/01/18 05:54 Dose: Not Given Folic Acid (Folic Acid -) 1 mg PO DAILY [facility] Heparin Sodium (Porcine) (Heparin -) 5,000 unit SQ TID [facility] Last Admin: 08/01/18 05:54 Dose: 5,000 unit Hydralazine HCl (Apresoline -) 50 mg PO TID [facility] Last Admin: 08/01/18 05:54 Dose: Not Given Cefazolin Sodium (Ancef 1 Gm Premixed Ivpb -) 1 gm in 50 mls @ 100 mls/hr IVPB Q8H-IV [facility] Stop: 08/02/18 01:59 Last Admin: 08/01/18 01:30 Dose: 100 mls/hr Lactated Ringer's (Lactated Ringers Solution) 1,000 ml in 1,000 mls @ 125 mls/ hr IV ASDIR [facility] Last Admin: 08/01/18 00:00 Dose: 125 mls/hr Propofol (Diprivan -) 1,000,000 mcg in 100 mls @ 5 mls/hr IVPB TITR [facility]; Protocol Stop: 08/01/18 19:44 Last Titration: 08/01/18 06:44 Dose: 45 mls/hr Fentanyl 500 mcg/ Dextrose 100 mls @ 1 mls/hr IVPB TITR [facility]; Protocol Last Titration: 08/01/18 04:00 Dose: 100 mcg/hr, 20 mls/hr Insulin Aspart (Novolog Vial Sliding Scale -) 1 vial SQ Q4HPO [facility]; Protocol Last Admin: 08/01/18 05:55 Dose: 7 units Insulin Detemir (Levemir Vial) 15 units SQ HS [facility] Last Admin: 07/31/18 22:19 Dose: 15 units Pantoprazole Sodium (Protonix -) 40 mg PO DAILY [facility] - Objective Vital Signs: Vital Signs Temperature 98.5 F 08/01/18 06:43 Pulse Rate 92 H 08/01/18 09:17 Respiratory Rate 16 08/01/18 09:17 Blood Pressure 126/85 08/01/18 06:43 O2 Sat by Pulse Oximetry (%) 100 08/01/18 08:06 Constitutional: Yes: Mild Distress Eyes: Yes: Other Cardiovascular: Yes: Regular Rate and Rhythm Respiratory: Yes: On Venti-Mask Gastrointestinal: Yes: Soft Genitourinary: Yes: Other Musculoskeletal: Yes: Muscle Weakness Integumentary: Yes: WNL Wound/Incision: Yes: Clean/Dry Neurological: Yes: Other Labs: CBC, BMP 08/01/18 05:15 08/01/18 05:15 INR, PTT INR 1.16 (0.83-1.09) H 07/29/18 13:09 Problem List - Problems (1) HTN (hypertension), benign Code(s): I10 - ESSENTIAL (PRIMARY) HYPERTENSION (2) Idiopathic intracranial hypertension Code(s): G93.2 - BENIGN INTRACRANIAL HYPERTENSION (4) Optic neuritis Code(s): H46.9 - UNSPECIFIED OPTIC NEURITIS (5) HTN (hypertension) Code(s): I10 - ESSENTIAL (PRIMARY) HYPERTENSION (6) Hyperlipidemia Code(s): E78.5 - HYPERLIPIDEMIA, UNSPECIFIED (7) New onset type 2 diabetes mellitus Code(s): E11.9 - TYPE 2 DIABETES MELLITUS WITHOUT COMPLICATIONS (8) Obesity Code(s): E66.9 - OBESITY, UNSPECIFIED Assessment/Plan EXTUBATED FROM MECHANICAL VENT OB 02 MASK MONITOR IN ICU DVT PROPHYLAXIS POST OP LP SHUNT CHANGED B/C OF OBSTRUCTION MONITOR VITAL OOB TO CHAIR PT EVYUN
[2018-08-01] MEDS ORDERED: PT OWN MED DRAWER 7, Y5N ONE ×3 (10:21→10:31)
--- NOTE | 2018-08-01 10:22 | PN ---
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, feels minor change in vision, can make out shapes of object no TERESA , eyes dilated by OPTHO this AM - Current Medication List Current Medications: Active Medications Acetazolamide (Diamox -) 500 mg PO BID [facility] Last Admin: 07/31/18 21:59 Dose: Not Given Amlodipine Besylate (Norvasc -) 10 mg PO DAILY [facility] Atorvastatin Calcium (Lipitor -) 20 mg PO HS [facility] Last Admin: 07/31/18 21:59 Dose: Not Given Diphenhydramine HCl (Benadryl -) 25 mg PO Q6H PRN PRN Reason: FOR ITCHING Docusate Sodium (Colace -) 100 mg PO TID [facility] Last Admin: 08/01/18 05:54 Dose: Not Given Folic Acid (Folic Acid -) 1 mg PO DAILY [facility] Heparin Sodium (Porcine) (Heparin -) 5,000 unit SQ TID [facility] Last Admin: 08/01/18 05:54 Dose: 5,000 unit Hydralazine HCl (Apresoline -) 50 mg PO TID [facility] Last Admin: 08/01/18 05:54 Dose: Not Given Cefazolin Sodium (Ancef 1 Gm Premixed Ivpb -) 1 gm in 50 mls @ 100 mls/hr IVPB Q8H-IV [facility] Stop: 08/02/18 01:59 Last Admin: 08/01/18 01:30 Dose: 100 mls/hr Lactated Ringer's (Lactated Ringers Solution) 1,000 ml in 1,000 mls @ 125 mls/ hr IV ASDIR [facility] Last Admin: 08/01/18 00:00 Dose: 125 mls/hr Propofol (Diprivan -) 1,000,000 mcg in 100 mls @ 5 mls/hr IVPB TITR [facility]; Protocol Stop: 08/01/18 19:44 Last Titration: 08/01/18 06:44 Dose: 45 mls/hr Fentanyl 500 mcg/ Dextrose 100 mls @ 1 mls/hr IVPB TITR [facility]; Protocol Last Titration: 08/01/18 04:00 Dose: 100 mcg/hr, 20 mls/hr Insulin Aspart (Novolog Vial Sliding Scale -) 1 vial SQ Q4HPO [facility]; Protocol Last Admin: 08/01/18 05:55 Dose: 7 units Insulin Detemir (Levemir Vial) 15 units SQ HS [facility] Last Admin: 07/31/18 22:19 Dose: 15 units Pantoprazole Sodium (Protonix -) 40 mg PO DAILY [facility] - Objective Vital Signs: Vital Signs Temperature 98.5 F 08/01/18 06:43 Pulse Rate 98 H 08/01/18 09:51 Respiratory Rate 16 08/01/18 09:17 Blood Pressure 126/85 08/01/18 06:43 O2 Sat by Pulse Oximetry (%) 96 08/01/18 09:51 Labs: CBC, BMP 08/01/18 05:15 08/01/18 05:15 INR, PTT INR 1.16 (0.83-1.09) H 07/29/18 13:09 Problem List - Problems (1) Idiopathic intracranial hypertension Code(s): G93.2 - BENIGN INTRACRANIAL HYPERTENSION Assessment/Plan Worsened vision in patient with BIHTN, there are no headaches and no evid. of increased ICP on CT head. Given sudden deterioration of vision still suspect increased ICP?? due to shunt malfx. Alos need to tr/o worsened vision 2/2 retinopathy. s/p shunt revision today --- FU OPTHO exam, cont DIAMOX, discussed if any utility of ON fenestration with optho -not at this juncture DR SEAMAN
[2018-08-01] MEDS: amLODIPine BESYLATE 10 MG TABLET (FP) PO SCH (10:23)
[2018-08-01] MEDS: FOLIC ACID 1 MG TABLET (FP) PO SCH (10:23)
[2018-08-01] MEDS: PANTOPRAZOLE 40 MG TABLET (FP) PO SCH (10:23)
[2018-08-01] MEDS: acetaZOLAMIDE 250 MG TABLET PO SCH ×2 (10:26→21:02)
[2018-08-01] MEDS: LACTATED RINGERS SOLUTION 1,000 ML/1,000 ML INFUS.BAG IV SCH ×2 (10:33)
--- NOTE | 2018-08-01 12:20 | PN ---
Teaching Attending Note Name of Resident: eTsha Lopez ATTENDING PHYSICIAN STATEMENT I saw and evaluated the patient. I reviewed the resident's note and discussed the case with the resident. I agree with the resident's findings and plan as documented. SUBJECTIVE: Pt seen and examined in the ICU. Extubated earlier this AM without incident. c/ o vision changes/color loss. Denies shortness of breath. OBJECTIVE: Vital Signs Period Temp Pulse Resp BP Sys/Claros Pulse Ox Last 24 Hr 98.3 F-99.2 F 92-125 15-24 110-167/64-98 96-100 Intake & Output 07/29/18 07/30/18 07/31/18 08/01/18 23:59 23:59 23:59 23:59 Intake Total 200 1920 1950 Output Total 1150 1800 Balance 200 770 150 Weight 145.15 kg 154.221 kg Gen: NAD at rest Heart: RRR Lung: decreased breath sounds at the bases Abd: soft, nontender Ext: no edema CBC, BMP 08/01/18 05:15 08/01/18 05:15 Active Medications Acetazolamide (Diamox -) 500 mg PO BID [facility] Last Admin: 08/01/18 10:26 Dose: 500 mg Amlodipine Besylate (Norvasc -) 10 mg PO DAILY [facility] Last Admin: 08/01/18 10:23 Dose: 10 mg Atorvastatin Calcium (Lipitor -) 20 mg PO HS [facility] Last Admin: 07/31/18 21:59 Dose: Not Given Diphenhydramine HCl (Benadryl -) 25 mg PO Q6H PRN PRN Reason: FOR ITCHING Docusate Sodium (Colace -) 100 mg PO TID [facility] Last Admin: 08/01/18 05:54 Dose: Not Given Folic Acid (Folic Acid -) 1 mg PO DAILY [facility] Last Admin: 08/01/18 10:23 Dose: 1 mg Heparin Sodium (Porcine) (Heparin -) 5,000 unit SQ TID [facility] Last Admin: 08/01/18 05:54 Dose: 5,000 unit Hydralazine HCl (Apresoline -) 50 mg PO TID [facility] Last Admin: 08/01/18 05:54 Dose: Not Given Cefazolin Sodium (Ancef 1 Gm Premixed Ivpb -) 1 gm in 50 mls @ 100 mls/hr IVPB Q8H-IV [facility] Stop: 08/02/18 01:59 Last Admin: 08/01/18 10:26 Dose: 100 mls/hr Lactated Ringer's (Lactated Ringers Solution) 1,000 ml in 1,000 mls @ 125 mls/ hr IV ASDIR [facility] Last Admin: 08/01/18 10:33 Dose: 125 mls/hr Propofol (Diprivan -) 1,000,000 mcg in 100 mls @ 5 mls/hr IVPB TITR [facility]; Protocol Stop: 08/01/18 19:44 Last Titration: 08/01/18 06:44 Dose: 45 mls/hr Fentanyl 500 mcg/ Dextrose 100 mls @ 1 mls/hr IVPB TITR [facility]; Protocol Last Titration: 08/01/18 04:00 Dose: 100 mcg/hr, 20 mls/hr Insulin Aspart (Novolog Vial Sliding Scale -) 1 vial SQ Q4HPO [facility]; Protocol Last Admin: 08/01/18 11:18 Dose: 7 units Insulin Detemir (Levemir Vial) 15 units SQ HS [facility] Last Admin: 07/31/18 22:19 Dose: 15 units Pantoprazole Sodium (Protonix -) 40 mg PO DAILY [facility] Last Admin: 08/01/18 10:23 Dose: 40 mg ASSESSMENT AND PLAN: 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
--- NOTE | 2018-08-01 13:28 | PN ---
Physical Exam: SUBJECTIVE: Patient seen and examined this morning. Extubated earlier this AM. Vision improving and is able to identify colors however still has vision changes. Denies any recent fevers, chills, chest pain, SOB, nausea, vomiting, diarrhea, constipation. OBJECTIVE: Vital Signs Period Temp Pulse Resp BP Sys/Claros Pulse Ox Last 24 Hr 98.3 F-99.2 F 90-125 15-24 110-167/64-98 96-100 GENERAL: A&Ox3, NAD HEAD: NCAT EYES: PERRL ENT: moist mucous membranes NECK: Supple LUNGS: CTA b/l, no wheezes, no crackles HEART: Regular rate and rhythm, S1, S2 without murmur ABDOMEN: Obese, Soft, nontender, nondistended, + bowel sounds, no guarding EXTREMITIES: No edema. SKIN: Warm, dry Laboratory Results - last 24 hr 07/31/18 08/01/18 08/01/18 23:24 01:22 02:25 WBC RBC Hgb Hct MCV MCH MCHC RDW Plt Count MPV Anticoagulation Therapy No Result Required. No Result Required. Puncture Site Right radial Right radial ABG pH 7.29 L 7.33 L ABG pCO2 at Pt Temp 43.1 40.2 ABG pO2 at Pt Temp 173.0 H* 155.0 H* ABG HCO3 20.1 L 20.8 L ABG O2 Sat (Measured) 98.8 98.8 ABG O2 Content 16.1 15.8 ABG Base Excess -5.7 L -4.2 L Silvestre Test Positive Positive O2 Delivery Device No Result Required. No Result Required. Oxygen Flow Rate 80% Yes Vent Mode A/c No Result Required. Vent Rate 20 20 Mechanical Rate No Result Required. No Result Required. PEEP 8.0 8.0 Pressure Support Vent 500 500 Sodium Potassium Chloride Carbon Dioxide Anion Gap BUN Creatinine Creat Clearance w eGFR POC Glucometer 314.31764 Random Glucose Calcium 08/01/18 08/01/18 08/01/18 05:15 05:15 05:38 WBC 9.8 RBC 4.00 Hgb 11.6 L Hct 34.1 L MCV 85.3 MCH 29.0 MCHC 34.1 RDW 14.0 Plt Count 228 MPV 8.4 Anticoagulation Therapy Puncture Site ABG pH ABG pCO2 at Pt Temp ABG pO2 at Pt Temp ABG HCO3 ABG O2 Sat (Measured) ABG O2 Content ABG Base Excess Silvestre Test O2 Delivery Device Oxygen Flow Rate Vent Mode Vent Rate Mechanical Rate PEEP Pressure Support Vent Sodium 137 Potassium 4.0 Chloride 106 Carbon Dioxide 25 Anion Gap 6 L BUN 11 Creatinine 1.2 Creat Clearance w eGFR > 60 POC Glucometer 284.19560 Random Glucose 253 H Calcium 8.1 L Active Medications Acetazolamide (Diamox -) 500 mg PO BID [facility] Last Admin: 08/01/18 10:26 Dose: 500 mg Amlodipine Besylate (Norvasc -) 10 mg PO DAILY [facility] Last Admin: 08/01/18 10:23 Dose: 10 mg Atorvastatin Calcium (Lipitor -) 20 mg PO HS [facility] Last Admin: 07/31/18 21:59 Dose: Not Given Diphenhydramine HCl (Benadryl -) 25 mg PO Q6H PRN PRN Reason: FOR ITCHING Docusate Sodium (Colace -) 100 mg PO TID [facility] Last Admin: 08/01/18 05:54 Dose: Not Given Folic Acid (Folic Acid -) 1 mg PO DAILY [facility] Last Admin: 08/01/18 10:23 Dose: 1 mg Heparin Sodium (Porcine) (Heparin -) 5,000 unit SQ TID [facility] Last Admin: 08/01/18 05:54 Dose: 5,000 unit Hydralazine HCl (Apresoline -) 50 mg PO TID [facility] Last Admin: 08/01/18 05:54 Dose: Not Given Cefazolin Sodium (Ancef 1 Gm Premixed Ivpb -) 1 gm in 50 mls @ 100 mls/hr IVPB Q8H-IV [facility] Stop: 08/02/18 01:59 Last Admin: 08/01/18 10:26 Dose: 100 mls/hr Lactated Ringer's (Lactated Ringers Solution) 1,000 ml in 1,000 mls @ 125 mls/ hr IV ASDIR [facility] Last Admin: 08/01/18 10:33 Dose: 125 mls/hr Propofol (Diprivan -) 1,000,000 mcg in 100 mls @ 5 mls/hr IVPB TITR [facility]; Protocol Stop: 08/01/18 19:44 Last Titration: 08/01/18 06:44 Dose: 45 mls/hr Fentanyl 500 mcg/ Dextrose 100 mls @ 1 mls/hr IVPB TITR [facility]; Protocol Last Titration: 08/01/18 04:00 Dose: 100 mcg/hr, 20 mls/hr Insulin Aspart (Novolog Vial Sliding Scale -) 1 vial SQ Q4HPO [facility]; Protocol Last Admin: 08/01/18 11:18 Dose: 7 units Insulin Detemir (Levemir Vial) 15 units SQ HS [facility] Last Admin: 07/31/18 22:19 Dose: 15 units Pantoprazole Sodium (Protonix -) 40 mg PO DAILY [facility] Last Admin: 08/01/18 10:23 Dose: 40 mg ASSESSMENT/PLAN: 52 y/o M with PMHx of DM and Idiopathic Intracranial HTN s/p Lumbar-Peritoneal shunting presented to [facility] with progressive visual decline now being monitored in the ICU s/p LP Shunt Revision. #Neuro Idiopathic Intracranial HTN S/P LP shunt Revision POD#1 -No longer Sedated; A&Ox3, NAD -Continue Acetazolamide 500mg PO BID -Continue IV Cefazolin 1gm Q8H -Neurology (Dr. Gresham) Consulted, appreciate rec's -NeuroSurgery (Dr. Bragg) Consulted, appreciate rec's -Ophthamology (Dr. Leggett) Consulted, appreciate rec's -Lumbar spine CT Pending #Cardio HTN HLD -EKG: SINUS TACHYCARDIA, LEFT AXIS DEVIATION, VR 106, QTc 451 -Continue Amlodipine 10mg PO, Hydralazine 50mg PO TID, Atorvastatin 20mg PO #Pulm -Extubated this AM -CXR (08/01): A single AP view the chest reveals an endotracheal tube with its tip well above the emily with weak inspiration, some congestive changes, fluid in the horizontal fissure and prominent mediastinum. A left upper lobe infiltrate cannot be excluded. #GI Obesity -Diabetic diet -Continue Colace, Pantoprazole 40mg PO DAILY #Endo DMII -BGM ISS ACHS -Continue Detemir 15u HS -Dr. Church Consulted, appreciate rec's #Heme Acute blood loss anemia -S/P LP Shunt Revision EBL 1000 mls -No signs of active bleeding -Continue to monitor H&H #Renal -No active issues, Continue to monitor #FEN -LR @ 125 mls/hr -Lytes WNL -Diabetic Diet #PPx DVT: Heparin GI: Pantoprazole #LTD -Maintain Rangel Code Status: Full code Dispo: Continue to monitor in ICU Visit type - Emergency Visit Emergency Visit: Yes ED Registration Date: 07/29/18 Care time: The patient presented to the Emergency Department on the above date and was hospitalized for further evaluation of their emergent condition. - New Patient This patient is new to me today: Yes Date on this admission: 08/01/18 - Critical Care Critical Care patient: Yes Total Critical Care Time (in minutes): 50 Critical Care Statement: The care of this patient involved high complexity decision making to prevent further life threatening deterioration of the patient 's condition and/or to evaluate & treat vital organ system(s) failure or risk of failure.
[2018-08-01] MEDS: ATORVASTATIN CA 20 MG TABLET (FP) PO SCH (21:00)
[2018-08-01] MEDS: INSULIN (LEVEMIR) 100 UNITS/ML UNITS SQ SCH (21:03)
[2018-08-01] MEDS: oxyCODONE HCL 5 MG TABLET PO PRN (21:57)
--- NOTE | 2018-08-01 23:54 | PN ---
Progress Note (short form) - Note Progress Note: sp spinal canal shunt /extubation hyperglycemia requiring coverage achs Abnormal Lab Results 08/01/18 08/01/18 08/01/18 02:25 05:15 05:15 Hgb 11.6 L Hct 34.1 L ABG pH 7.33 L ABG pO2 at Pt Temp 155.0 H* ABG HCO3 20.8 L ABG Base Excess -4.2 L Anion Gap 6 L Random Glucose 253 H Calcium 8.1 L Laboratory Results - last 24 hr 08/01/18 08/01/18 08/01/18 01:22 02:25 05:15 WBC 9.8 RBC 4.00 Hgb 11.6 L Hct 34.1 L MCV 85.3 MCH 29.0 MCHC 34.1 RDW 14.0 Plt Count 228 MPV 8.4 Anticoagulation Therapy No Result Required. Puncture Site Right radial ABG pH 7.33 L ABG pCO2 at Pt Temp 40.2 ABG pO2 at Pt Temp 155.0 H* ABG HCO3 20.8 L ABG O2 Sat (Measured) 98.8 ABG O2 Content 15.8 ABG Base Excess -4.2 L Silvestre Test Positive O2 Delivery Device No Result Required. Oxygen Flow Rate Yes Vent Mode No Result Required. Vent Rate 20 Mechanical Rate No Result Required. PEEP 8.0 Pressure Support Vent 500 Sodium Potassium Chloride Carbon Dioxide Anion Gap BUN Creatinine Creat Clearance w eGFR POC Glucometer 314.32348 Random Glucose Calcium 08/01/18 08/01/18 08/01/18 05:15 05:38 11:13 WBC RBC Hgb Hct MCV MCH MCHC RDW Plt Count MPV Anticoagulation Therapy Puncture Site ABG pH ABG pCO2 at Pt Temp ABG pO2 at Pt Temp ABG HCO3 ABG O2 Sat (Measured) ABG O2 Content ABG Base Excess Silvestre Test O2 Delivery Device Oxygen Flow Rate Vent Mode Vent Rate Mechanical Rate PEEP Pressure Support Vent Sodium 137 Potassium 4.0 Chloride 106 Carbon Dioxide 25 Anion Gap 6 L BUN 11 Creatinine 1.2 Creat Clearance w eGFR > 60 POC Glucometer 284.14979 268.93138 Random Glucose 253 H Calcium 8.1 L 08/01/18 08/01/18 16:55 20:19 WBC RBC Hgb Hct MCV MCH MCHC RDW Plt Count MPV Anticoagulation Therapy Puncture Site ABG pH ABG pCO2 at Pt Temp ABG pO2 at Pt Temp ABG HCO3 ABG O2 Sat (Measured) ABG O2 Content ABG Base Excess Silvestre Test O2 Delivery Device Oxygen Flow Rate Vent Mode Vent Rate Mechanical Rate PEEP Pressure Support Vent Sodium Potassium Chloride Carbon Dioxide Anion Gap BUN Creatinine Creat Clearance w eGFR POC Glucometer 294.89889 349.54396 Random Glucose Calcium Laboratory Tests 07/31/18 07/31/18 07/31/18 06:30 11:23 19:52 Sodium 136 Potassium 4.2 Chloride 106 Carbon Dioxide 21 Anion Gap 9 BUN 13 POC Glucometer 257 328 Random Glucose 268 H 07/31/18 21:16 Sodium Potassium Chloride Carbon Dioxide Anion Gap BUN POC Glucometer 350.75738 Random Glucose plan: levemir 20 units am levemir 15units hs bgm novolog scale titration Problem List - Problems (1) Dyslipidemia (high LDL; low HDL) Code(s): E78.5 - HYPERLIPIDEMIA, UNSPECIFIED (2) HTN (hypertension), benign Code(s): I10 - ESSENTIAL (PRIMARY) HYPERTENSION (3) Idiopathic intracranial hypertension Code(s): G93.2 - BENIGN INTRACRANIAL HYPERTENSION (4) Obesity, Class III, BMI 40-49.9 (morbid obesity) Code(s): E66.01 - MORBID (SEVERE) OBESITY DUE TO EXCESS CALORIES (5) Type 2 diabetes mellitus Code(s): E11.9 - TYPE 2 DIABETES MELLITUS WITHOUT COMPLICATIONS Qualifiers:
[2018-08-02] MEDS: DOCUSATE SODIUM 100 MG CAPSULE (FP) PO SCH ×3 (05:54→21:50)
[2018-08-02] MEDS: hydrALAZINE HCL 50 MG TABLET (FP) PO SCH (05:55)
[2018-08-02] MEDS: HEPARIN NA (PORCINE) 5,000 UNITS/ML 1ML VIAL SQ SCH ×3 (05:55→21:51)
[2018-08-02] MEDS: INSULIN SLIDING SCALE (NOVOLOG) 1 VIAL SQ SCH ×3 (06:09→17:20)
[2018-08-02 06:12] LABS: BASO % 0.1 % (0-2.0); EOS % 0.1 % (0-4.5); HEMATOCRIT 33.9 % (35.4-49); HEMOGLOBIN 11.5 GM/dL (11.7-16.9); LYMPH % 10.8 % (8-40); MCHC 33.8 g/dl (32.0-35.9); MEAN CELL VOLUME 85.6 fl (80-96); MEAN PLT VOLUME 8.5 fl (7.5-11.1); MONO % 10.9 % (3.8-10.2); NEUT % 78.1 % (42.8-82.8); PLATELET COUNT 233 K/MM3 (134-434); RBC 3.96 M/mm3 (4.00-5.60); RDW 14.3 % (11.9-15.9); WHITE BLOOD COUNT 10.3 K/mm3 (4.0-10.0)
[2018-08-02] MEDS ORDERED: INSULIN (LEVEMIR) 100 UNITS/ML UNITS SQ SCH ×3 (07:00→23:25)
[2018-08-02 07:35] LABS: ALBUMIN 3.4 g/dl (3.4-5.0); ALK PHOS 85 U/L (45-117); ANION GAP 9 MMOL/L (8-16); BILIRUBIN,TOTAL 0.5 mg/dL (0.2-1); BLOOD UREA NITROGEN 12 mg/dL (7-18); CALCIUM 8.2 mg/dL (8.5-10.1); CHLORIDE 105 mmol/L (98-107); CO2 24 mmol/L (21-32); CREATININE 1.1 mg/dL (0.55-1.3); GLUCOSE,RANDOM 273 mg/dL (74-106); MAGNESIUM 2.1 mg/dL (1.8-2.4); PHOSPHOROUS 2.7 mg/dL (2.5-4.9); SGOT/AST 13 U/L (15-37); SGPT/ALT 27 U/L (13-61); SODIUM 138 mmol/L (136-145); TOT PROT 6.9 g/dl (6.4-8.2)
[2018-08-02] MEDS ORDERED: PT OWN MED DRAWER 7, Y5N ONE (08:32)
[2018-08-02] MEDS: oxyCODONE HCL 5 MG TABLET PO PRN (08:58)
[2018-08-02] MEDS: acetaZOLAMIDE 250 MG TABLET PO SCH ×2 (08:59→21:51)
[2018-08-02] MEDS: PANTOPRAZOLE 40 MG TABLET (FP) PO SCH (08:59)
[2018-08-02] MEDS: amLODIPine BESYLATE 10 MG TABLET (FP) PO SCH (08:59)
[2018-08-02] MEDS: FOLIC ACID 1 MG TABLET (FP) PO SCH (08:59)
--- NOTE | 2018-08-02 09:17 | PN ---
Physical Exam: SUBJECTIVE: Patient seen and examined this morning. Tolerating Nasal cannula. Vision improving however has not returned to baseline; Unable to differentiate shapes/colors. No new complaints. No acute overnight events. OBJECTIVE: Vital Signs Period Temp Pulse Resp BP Sys/Claros Pulse Ox Last 24 Hr 98.4 F-99.6 F 90-125 16-21 125-156/82-107 96-100 GENERAL: A&Ox3, NAD HEAD: NCAT EYES: PERRL ENT: moist mucous membranes NECK: Supple LUNGS: CTA b/l, no wheezes, no crackles, on 3L Nasal [place] HEART: Regular rate and rhythm, S1, S2 without murmur ABDOMEN: Obese, Soft, nontender, nondistended, + bowel sounds, no guarding EXTREMITIES: No edema. SKIN: Warm, dry Laboratory Results - last 24 hr 08/02/18 08/02/18 05:30 05:30 WBC 10.3 H RBC 3.96 L Hgb 11.5 L Hct 33.9 L MCV 85.6 MCH 29.0 MCHC 33.8 RDW 14.3 Plt Count 233 MPV 8.5 Absolute Neuts (auto) 8.0 Neutrophils % 78.1 Lymphocytes % 10.8 D Monocytes % 10.9 H Eosinophils % 0.1 D Basophils % 0.1 Nucleated RBC % 0 Sodium 138 Potassium 4.0 Chloride 105 Carbon Dioxide 24 Anion Gap 9 BUN 12 Creatinine 1.1 Creat Clearance w eGFR > 60 POC Glucometer Random Glucose 273 H Calcium 8.2 L Phosphorus 2.7 Magnesium 2.1 Total Bilirubin 0.5 AST 13 L ALT 27 Alkaline Phosphatase 85 Total Protein 6.9 Albumin 3.4 Active Medications Acetazolamide (Diamox -) 500 mg PO BID [facility] Last Admin: 08/01/18 21:02 Dose: 500 mg Amlodipine Besylate (Norvasc -) 10 mg PO DAILY [facility] Last Admin: 08/01/18 10:23 Dose: 10 mg Atorvastatin Calcium (Lipitor -) 20 mg PO HS [facility] Last Admin: 08/01/18 21:00 Dose: 20 mg Diphenhydramine HCl (Benadryl -) 25 mg PO Q6H PRN PRN Reason: FOR ITCHING Docusate Sodium (Colace -) 100 mg PO TID [facility] Last Admin: 08/02/18 05:54 Dose: 100 mg Folic Acid (Folic Acid -) 1 mg PO DAILY [facility] Last Admin: 08/01/18 10:23 Dose: 1 mg Heparin Sodium (Porcine) (Heparin -) 5,000 unit SQ TID [facility] Last Admin: 08/02/18 05:55 Dose: 5,000 unit Hydralazine HCl (Apresoline -) 50 mg PO TID [facility] Last Admin: 08/02/18 05:55 Dose: 50 mg Insulin Aspart (Novolog Vial Sliding Scale -) 1 vial SQ ACHS [facility]; Protocol Last Admin: 08/02/18 06:09 Dose: 7 units Insulin Detemir (Levemir Vial) 15 units SQ HS [facility] Last Admin: 08/01/18 21:03 Dose: 15 units Insulin Detemir (Levemir Vial) 20 units SQ AM [facility] Last Admin: 08/02/18 06:09 Dose: 20 units Oxycodone HCl (Roxicodone -) 5 mg PO Q4H PRN PRN Reason: PAIN LEVEL 6-10 Last Admin: 08/01/18 21:57 Dose: 5 mg Pantoprazole Sodium (Protonix -) 40 mg PO DAILY [facility] Last Admin: 08/01/18 10:23 Dose: 40 mg ASSESSMENT/PLAN: 52 y/o M with PMHx of DM and Idiopathic Intracranial HTN s/p Lumbar-Peritoneal shunting presented to [facility] with progressive visual decline now being monitored in the ICU s/p LP Shunt Revision. #Neuro Idiopathic Intracranial HTN S/P LP shunt Revision POD#2 -A&Ox3, NAD -Continue to monitor Neuro Exam closely -Continue Acetazolamide 500mg PO BID -Pain control via Oxycodone -PeriOperative Cefazolin course completed -Neurology (Dr. Gresham) Consulted, appreciate rec's -NeuroSurgery (Dr. Bragg) Consulted, appreciate rec's -Ophthamology (Dr. Leggett) Consulted, appreciate rec's -Lumbar spine CT: 2 intraspinal shunts are identified, Marked degenerative central spinal canal stenosis at L3-L4 and moderate to marked degenerative central spinal canal stenosis at L4-L5 level. 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 Church Consulted, appreciate rec's #Heme Acute blood loss anemia -S/P LP Shunt Revision EBL 1000 mls -No signs of active bleeding -H&H remains stable; Continue to monitor #Renal -No active issues, Continue to monitor #ID Leukocytosis -Mildly elevated possibly a Stress reaction; Patient remains AFebrile -Continue to monitor for signs of infection #FEN -PO Fluids -Lytes WNL -Diabetic Diet #PPx DVT: Heparin GI: Pantoprazole #LTD -Rangel d/c'ed overnight Code Status: Full code Dispo: Transfer to [facility]-Surg Visit type - Emergency Visit Emergency Visit: Yes ED Registration Date: 07/29/18 Care time: The patient presented to the Emergency Department on the above date and was hospitalized for further evaluation of their emergent condition. - New Patient This patient is new to me today: No - Critical Care Critical Care patient: Yes Total Critical Care Time (in minutes): 40 Critical Care Statement: The care of this patient involved high complexity decision making to prevent further life threatening deterioration of the patient 's condition and/or to evaluate & treat vital organ system(s) failure or risk of failure.
--- NOTE | 2018-08-02 09:50 | PN ---
Progress Note, Physician Chief Complaint: LOW GRADE FEVERS ASLEEP COMFORTABLE - Current Medication List Current Medications: Active Medications Acetazolamide (Diamox -) 500 mg PO BID [facility] Last Admin: 08/02/18 08:59 Dose: 500 mg Amlodipine Besylate (Norvasc -) 10 mg PO DAILY [facility] Last Admin: 08/02/18 08:59 Dose: 10 mg Atorvastatin Calcium (Lipitor -) 20 mg PO HS [facility] Last Admin: 08/01/18 21:00 Dose: 20 mg Diphenhydramine HCl (Benadryl -) 25 mg PO Q6H PRN PRN Reason: FOR ITCHING Docusate Sodium (Colace -) 100 mg PO TID [facility] Last Admin: 08/02/18 05:54 Dose: 100 mg Folic Acid (Folic Acid -) 1 mg PO DAILY [facility] Last Admin: 08/02/18 08:59 Dose: 1 mg Heparin Sodium (Porcine) (Heparin -) 5,000 unit SQ TID [facility] Last Admin: 08/02/18 05:55 Dose: 5,000 unit Hydralazine HCl (Apresoline -) 50 mg PO TID [facility] Last Admin: 08/02/18 05:55 Dose: 50 mg Insulin Aspart (Novolog Vial Sliding Scale -) 1 vial SQ [facility]; Protocol Last Admin: 08/02/18 06:09 Dose: 7 units Insulin Detemir (Levemir Vial) 15 units SQ HS [facility] Last Admin: 08/01/18 21:03 Dose: 15 units Insulin Detemir (Levemir Vial) 20 units SQ AM [facility] Last Admin: 08/02/18 06:09 Dose: 20 units Oxycodone HCl (Roxicodone -) 5 mg PO Q4H PRN PRN Reason: PAIN LEVEL 6-10 Last Admin: 08/02/18 08:58 Dose: 5 mg Pantoprazole Sodium (Protonix -) 40 mg PO DAILY [facility] Last Admin: 08/02/18 08:59 Dose: 40 mg - Objective Vital Signs: Vital Signs Temperature 99.6 F 08/02/18 06:00 Pulse Rate 112 H 08/02/18 08:00 Respiratory Rate 18 08/02/18 08:00 Blood Pressure 135/82 08/02/18 08:00 O2 Sat by Pulse Oximetry (%) 100 08/02/18 08:02 Constitutional: Yes: Mild Distress Eyes: Yes: WNL HENT: Yes: WNL Neck: Yes: WNL Cardiovascular: Yes: Regular Rate and Rhythm Respiratory: Yes: WNL Gastrointestinal: Yes: WNL Musculoskeletal: Yes: WNL Edema: No Integumentary: Yes: WNL Wound/Incision: Yes: Clean/Dry Neurological: Yes: Pre-Existing Deficit Labs: CBC, BMP 08/02/18 05:30 08/02/18 05:30 INR, PTT INR 1.16 (0.83-1.09) H 07/29/18 13:09 Problem List - Problems (1) HTN (hypertension), benign Code(s): I10 - ESSENTIAL (PRIMARY) HYPERTENSION (2) Idiopathic intracranial hypertension Code(s): G93.2 - BENIGN INTRACRANIAL HYPERTENSION (4) Optic neuritis Code(s): H46.9 - UNSPECIFIED OPTIC NEURITIS (5) HTN (hypertension) Code(s): I10 - ESSENTIAL (PRIMARY) HYPERTENSION (6) Hyperlipidemia Code(s): E78.5 - HYPERLIPIDEMIA, UNSPECIFIED (7) New onset type 2 diabetes mellitus Code(s): E11.9 - TYPE 2 DIABETES MELLITUS WITHOUT COMPLICATIONS (8) Obesity Code(s): E66.9 - OBESITY, UNSPECIFIED Assessment/Plan EXTUBATED FROM MECHANICAL VENT ON O2 NASAL CANULA MONITOR IN ICU DVT PROPHYLAXIS POST OP LP SHUNT CHANGED B/C OF OBSTRUCTION MONITOR VITAL OOB TO CHAIR PT EVAL LOW GRADE FEVER WILL NEED CULTURES/ID F/U
--- NOTE | 2018-08-02 12:16 | PN ---
Teaching Attending Note Name of Resident: Tesha Lopez ATTENDING PHYSICIAN STATEMENT I saw and evaluated the patient. I reviewed the resident's note and discussed the case with the resident. I agree with the resident's findings and plan as documented. SUBJECTIVE: Patient seen and examined in the ICU. Remains extubated. Vision is about the same as yesterday. Alternating periods of dark and light. Unable to see shapes or colors. No CP or SOB. No TERESA. No nausea. Intake & Output 07/30/18 07/31/18 08/01/18 08/02/18 23:59 23:59 23:59 23:59 Intake Total 200 1920 2240 500 Output Total 1150 3200 1800 Balance 200 770 -960 -1300 Weight 340 lb 340 lb Last Vital Signs Temp Pulse Resp BP Pulse Ox 99.6 F 110 H 18 132/86 100 08/02/18 06:00 08/02/18 10:00 08/02/18 10:00 08/02/18 10:00 08/02/18 08:02 Active Medications Acetazolamide (Diamox -) 500 mg PO BID [facility] Last Admin: 08/02/18 08:59 Dose: 500 mg Amlodipine Besylate (Norvasc -) 10 mg PO DAILY [facility] Last Admin: 08/02/18 08:59 Dose: 10 mg Atorvastatin Calcium (Lipitor -) 20 mg PO [facility] Last Admin: 08/01/18 21:00 Dose: 20 mg Diphenhydramine HCl (Benadryl -) 25 mg PO Q6H PRN PRN Reason: FOR ITCHING Docusate Sodium (Colace -) 100 mg PO TID [facility] Last Admin: 08/02/18 05:54 Dose: 100 mg Folic Acid (Folic Acid -) 1 mg PO DAILY [facility] Last Admin: 08/02/18 08:59 Dose: 1 mg Heparin Sodium (Porcine) (Heparin -) 5,000 unit SQ TID [facility] Last Admin: 08/02/18 05:55 Dose: 5,000 unit Hydralazine HCl (Apresoline -) 50 mg PO TID [facility] Last Admin: 08/02/18 05:55 Dose: 50 mg Insulin Aspart (Novolog Vial Sliding Scale -) 1 vial SQ [facility]; Protocol Last Admin: 08/02/18 06:09 Dose: 7 units Insulin Detemir (Levemir Vial) 15 units SQ [facility] Last Admin: 08/01/18 21:03 Dose: 15 units Insulin Detemir (Levemir Vial) 20 units SQ AM [facility] Last Admin: 08/02/18 06:09 Dose: 20 units Oxycodone HCl (Roxicodone -) 5 mg PO Q4H PRN PRN Reason: PAIN LEVEL 6-10 Last Admin: 08/02/18 08:58 Dose: 5 mg Pantoprazole Sodium (Protonix -) 40 mg PO DAILY [facility] Last Admin: 08/02/18 08:59 Dose: 40 mg OBJECTIVE: Gen: NAD at rest Heart: RRR Lung: decreased breath sounds at the bases Abd: soft, nontender Ext: no edema 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 except for visual disturbance Laboratory Results - last 24 hr 08/01/18 08/01/18 08/02/18 16:55 20:19 05:30 WBC 10.3 H RBC 3.96 L Hgb 11.5 L Hct 33.9 L MCV 85.6 MCH 29.0 MCHC 33.8 RDW 14.3 Plt Count 233 MPV 8.5 Absolute Neuts (auto) 8.0 Neutrophils % 78.1 Lymphocytes % 10.8 D Monocytes % 10.9 H Eosinophils % 0.1 D Basophils % 0.1 Nucleated RBC % 0 Sodium Potassium Chloride Carbon Dioxide Anion Gap BUN Creatinine Creat Clearance w eGFR POC Glucometer [phone] Random Glucose Calcium Phosphorus Magnesium Total Bilirubin AST ALT Alkaline Phosphatase Total Protein Albumin 08/02/18 05:30 WBC RBC Hgb Hct MCV MCH MCHC RDW Plt Count MPV Absolute Neuts (auto) Neutrophils % Lymphocytes % Monocytes % Eosinophils % Basophils % Nucleated RBC % Sodium 138 Potassium 4.0 Chloride 105 Carbon Dioxide 24 Anion Gap 9 BUN 12 Creatinine 1.1 Creat Clearance w eGFR > 60 POC Glucometer Random Glucose 273 H Calcium 8.2 L Phosphorus 2.7 Magnesium 2.1 Total Bilirubin 0.5 AST 13 L ALT 27 Alkaline Phosphatase 85 Total Protein 6.9 Albumin 3.4 ASSESSMENT AND PLAN: 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
[2018-08-02] MEDS ORDERED: LOSARTAN POTASSIUM 50 MG TABLET (FP) PO SCH (12:30)
--- NOTE | 2018-08-02 16:58 | PN ---
Progress Note (short form) - Note Progress Note: Pt seen earlier this am. Able to see shadows, unchanged from baseline. Seen by opthomology, his eyes were dilated and the optic nerve remains pale. Vital Signs Period Temp Pulse Resp BP Sys/Claros Pulse Ox Last 24 Hr 98 F-99.6 F 109-125 16-21 130-156/82-107 99-100 GEN: A&0x3, NAD Left flank: dressing c/d/i Back dressing: c/d/i CBC, BMP 08/02/18 05:30 08/02/18 05:30 A/P: 52 yo male s/p LP shunt, hemilaminecotmy Pt at baseline visual exam, follow-up with his neuro-opthmology physician as an outpt or Dr. Leggett Keep dressing c/d/i OOB/ambulate D/w. Dr. Bragg
--- NOTE | 2018-08-02 18:48 | PN ---
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 He at baseline x years has "tunnel vision" Soince Lenin has had worsening vision to the point he can only perceive arm movements only in both eyes.States that he had difficulty seeing the stairs and objects directly in front of his face that has been worsening over the past three days. Denies any fevers, chills, headache, nausea, vomiting , ataxia, or other symptoms. He did have an episode of diarrhea yesterday. He states that this does not feel like his pseudo tumor cerebri because that usually presents with a headache. FU: s/p shunt revision -- unable to check OP during procedure, ? if shunt was working to begin with no sig vision changes post shunt revision baseline legally blind as per optho, ON were pale, no clear evidence of DM retinopathy , tortuous vessels, ? vascular or metabolic issue - Current Medication List Current Medications: Active Medications Acetazolamide (Diamox -) 500 mg PO BID [facility] Last Admin: 08/02/18 08:59 Dose: 500 mg Amlodipine Besylate (Norvasc -) 10 mg PO DAILY [facility] Last Admin: 08/02/18 08:59 Dose: 10 mg Atorvastatin Calcium (Lipitor -) 20 mg PO HS [facility] Last Admin: 08/01/18 21:00 Dose: 20 mg Diphenhydramine HCl (Benadryl -) 25 mg PO Q6H PRN PRN Reason: FOR ITCHING Docusate Sodium (Colace -) 100 mg PO TID [facility] Last Admin: 08/02/18 13:41 Dose: 100 mg Folic Acid (Folic Acid -) 1 mg PO DAILY [facility] Last Admin: 08/02/18 08:59 Dose: 1 mg Heparin Sodium (Porcine) (Heparin -) 5,000 unit SQ TID [facility] Last Admin: 08/02/18 13:41 Dose: 5,000 unit Insulin Aspart (Novolog Vial Sliding Scale -) 1 vial SQ [facility]; Protocol Last Admin: 08/02/18 17:20 Dose: 7 units Insulin Detemir (Levemir Vial) 15 units SQ [facility] Last Admin: 08/01/18 21:03 Dose: 15 units Insulin Detemir (Levemir Vial) 20 units SQ AM [facility] Last Admin: 08/02/18 06:09 Dose: 20 units Losartan Potassium (Cozaar -) 50 mg PO DAILY [facility] Last Admin: 08/02/18 12:50 Dose: 50 mg Oxycodone HCl (Roxicodone -) 5 mg PO Q4H PRN PRN Reason: PAIN LEVEL 6-10 Last Admin: 08/02/18 08:58 Dose: 5 mg Pantoprazole Sodium (Protonix -) 40 mg PO DAILY [facility] Last Admin: 08/02/18 08:59 Dose: 40 mg - Objective Vital Signs: Vital Signs Temperature 98 F 08/02/18 18:00 Pulse Rate 122 H 08/02/18 18:00 Respiratory Rate 18 08/02/18 18:00 Blood Pressure 116/87 08/02/18 18:00 O2 Sat by Pulse Oximetry (%) 100 08/02/18 08:02 Labs: CBC, BMP 08/02/18 05:30 08/02/18 05:30 INR, PTT INR 1.16 (0.83-1.09) H 07/29/18 13:09 Problem List - Problems (1) Idiopathic intracranial hypertension Code(s): G93.2 - BENIGN INTRACRANIAL HYPERTENSION Assessment/Plan s/p shunt revision -- unable to check OP during procedure, ? if shunt was working to begin with no sig vision changes post shunt revision baseline legally blind as per optho, ON were pale, no clear evidence of DM retinopathy , tortuous vessels, ? vascular or metabolic issue AP : pseudotumor exacerbation would be unusual to present with this sudden onset of visual loss, without TERESA or CN palsy rule out vascular vs metabolic OPTHO will speak to his outpt neuroptho if possible DM ?, temporal arteritis check ESR CRP, TSH , MRI BRAIN if able DR SEAMAN
[2018-08-02] MEDS ORDERED: ALPRAZolam 0.25 MG TABLET PO ONE (20:00)
[2018-08-02] MEDS ORDERED: oxyCODONE HCL 5 MG TABLET PO PRN (21:17)
[2018-08-02] MEDS ORDERED: diphenhydrAMINE HCL 25 MG CAPSULE (FP) PO PRN (21:17)
[2018-08-02] MEDS: ATORVASTATIN CA 20 MG TABLET (FP) PO SCH (21:50)
[2018-08-02] MEDS ORDERED: INSULIN SLIDING SCALE (NOVOLOG) 1 VIAL SQ SCH ×3 (22:00→23:30)
--- NOTE | 2018-08-02 23:24 | PN ---
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 (Acute) Optic neuritis (Acute) Type 2 diabetes mellitus (Acute) Vision loss of right eye (Acute) Abnormal Lab Results 08/02/18 08/02/18 05:30 05:30 WBC 10.3 H RBC 3.96 L Hgb 11.5 L Hct 33.9 L Monocytes % 10.9 H Random Glucose 273 H Calcium 8.2 L AST 13 L C-Reactive Protein 5.7 H plan: bgm q4h levemir 30units am/20pm Problem List - Problems (1) Dyslipidemia (high LDL; low HDL) Code(s): E78.5 - HYPERLIPIDEMIA, UNSPECIFIED (2) HTN (hypertension), benign Code(s): I10 - ESSENTIAL (PRIMARY) HYPERTENSION (3) Idiopathic intracranial hypertension Code(s): G93.2 - BENIGN INTRACRANIAL HYPERTENSION (4) Obesity, Class III, BMI 40-49.9 (morbid obesity) Code(s): E66.01 - MORBID (SEVERE) OBESITY DUE TO EXCESS CALORIES (5) Type 2 diabetes mellitus Code(s): E11.9 - TYPE 2 DIABETES MELLITUS WITHOUT COMPLICATIONS Qualifiers:
[2018-08-03] MEDS: INSULIN SLIDING SCALE (NOVOLOG) 1 VIAL SQ SCH ×6 (02:05→21:44)
[2018-08-03] MEDS: DOCUSATE SODIUM 100 MG CAPSULE (FP) PO SCH ×3 (06:08→21:43)
[2018-08-03] MEDS: HEPARIN NA (PORCINE) 5,000 UNITS/ML 1ML VIAL SQ SCH ×3 (06:08→21:43)
[2018-08-03] MEDS: INSULIN (LEVEMIR) 100 UNITS/ML UNITS SQ SCH (06:18)
[2018-08-03 06:52] LABS: BASO % 0.1 % (0-2.0); EOS % 0.1 % (0-4.5); HEMATOCRIT 34.4 % (35.4-49); HEMOGLOBIN 11.8 GM/dL (11.7-16.9); LYMPH % 8.2 % (8-40); MCH 29.1 pg (25.7-33.7); MCHC 34.2 g/dl (32.0-35.9); MEAN CELL VOLUME 85.1 fl (80-96); MEAN PLT VOLUME 8.3 fl (7.5-11.1); MONO % 10.2 % (3.8-10.2); NEUT % 81.4 % (42.8-82.8); PLATELET COUNT 223 K/MM3 (134-434); RBC 4.05 M/mm3 (4.00-5.60); RDW 14.1 % (11.9-15.9); WHITE BLOOD COUNT 10.9 K/mm3 (4.0-10.0)
[2018-08-03] MEDS ORDERED: INSULIN (LEVEMIR) 100 UNITS/ML UNITS SQ SCH (07:00)
[2018-08-03 07:28] LABS: ALBUMIN 3.1 g/dl (3.4-5.0); ALK PHOS 79 U/L (45-117); ANION GAP 11 MMOL/L (8-16); BILIRUBIN,TOTAL 0.5 mg/dL (0.2-1); BLOOD UREA NITROGEN 12 mg/dL (7-18); CALCIUM 8.3 mg/dL (8.5-10.1); CHLORIDE 105 mmol/L (98-107); CO2 22 mmol/L (21-32); CREATININE 0.8 mg/dL (0.55-1.3); GLUCOSE,RANDOM 188 mg/dL (74-106); MAGNESIUM 2.1 mg/dL (1.8-2.4); PHOSPHOROUS 2.5 mg/dL (2.5-4.9); POTASSIUM 3.3 mmol/L (3.5-5.1); SGOT/AST 9 U/L (15-37); SGPT/ALT 21 U/L (13-61); SODIUM 138 mmol/L (136-145); TOT PROT 6.8 g/dl (6.4-8.2)
[2018-08-03] MEDS ORDERED: PT OWN MED DRAWER 7, Y5N ONE ×2 (09:24→21:11)
[2018-08-03] MEDS: PANTOPRAZOLE 40 MG TABLET (FP) PO SCH (09:27)
[2018-08-03] MEDS: amLODIPine BESYLATE 10 MG TABLET (FP) PO SCH (09:27)
[2018-08-03] MEDS: LOSARTAN POTASSIUM 50 MG TABLET (FP) PO SCH (09:27)
[2018-08-03] MEDS: FOLIC ACID 1 MG TABLET (FP) PO SCH (09:27)
[2018-08-03] MEDS: acetaZOLAMIDE 250 MG TABLET PO SCH ×2 (09:28→21:43)
--- NOTE | 2018-08-03 14:07 | PN ---
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 DM History of Present Illness: Previous notes and events reviewed awake and alert NAD continue to complain of blurred vision POD #2 - Current Medication List Current Medications: Active Medications Acetazolamide (Diamox -) 500 mg PO BID [facility] Last Admin: 08/03/18 09:28 Dose: 500 mg Amlodipine Besylate (Norvasc -) 10 mg PO DAILY [facility] Last Admin: 08/03/18 09:27 Dose: 10 mg Atorvastatin Calcium (Lipitor -) 20 mg PO HS [facility] Last Admin: 08/02/18 21:50 Dose: 20 mg Diphenhydramine HCl (Benadryl -) 25 mg PO Q6H PRN PRN Reason: FOR ITCHING Docusate Sodium (Colace -) 100 mg PO TID [facility] Last Admin: 08/03/18 06:08 Dose: 100 mg Folic Acid (Folic Acid -) 1 mg PO DAILY [facility] Last Admin: 08/03/18 09:27 Dose: 1 mg Heparin Sodium (Porcine) (Heparin -) 5,000 unit SQ TID [facility] Last Admin: 08/03/18 06:08 Dose: 5,000 unit Insulin Aspart (Novolog Vial Sliding Scale -) 1 vial SQ Q4HPO [facility]; Protocol Last Admin: 08/03/18 10:26 Dose: 6 units Insulin Detemir (Levemir Vial) 30 units SQ AM [facility] Last Admin: 08/03/18 06:18 Dose: 30 units Insulin Detemir (Levemir Vial) 20 units SQ HS [facility] Losartan Potassium (Cozaar -) 50 mg PO DAILY [facility] Last Admin: 08/03/18 09:27 Dose: 50 mg Oxycodone HCl (Roxicodone -) 5 mg PO Q4H PRN PRN Reason: PAIN LEVEL 6-10 Pantoprazole Sodium (Protonix -) 40 mg PO DAILY [facility] Last Admin: 08/03/18 09:27 Dose: 40 mg Potassium Chloride (K-Dur -) 40 meq PO ONCE ONE Stop: 08/03/18 14:16 - Objective Vital Signs: Vital Signs Temperature 98.4 F 08/03/18 13:54 Pulse Rate 75 08/03/18 13:54 Respiratory Rate 20 08/03/18 13:54 Blood Pressure 131/72 08/03/18 13:54 O2 Sat by Pulse Oximetry (%) 97 08/03/18 09:00 Constitutional: Yes: No Distress, Calm, Obese Eyes: Yes: Conjunctiva Clear HENT: Yes: Normocephalic Cardiovascular: Yes: Regular Rate and Rhythm Respiratory: Yes: Regular, CTA Bilaterally Gastrointestinal: Yes: Normal Bowel Sounds, Soft, Abdomen, Obese Musculoskeletal: Yes: Muscle Weakness Edema: No Wound/Incision: Yes: Dressing Dry and Intact Neurological: Yes: Alert, Oriented Psychiatric: Yes: Alert, Oriented Labs: CBC, BMP 08/03/18 05:30 08/03/18 05:30 INR, PTT INR 1.16 (0.83-1.09) H 07/29/18 13:09 <Consuelo Feliz - Last Filed: 08/03/18 14:13> - Current Medication List Current Medications: Active Medications Acetazolamide (Diamox -) 500 mg PO BID [facility] Last Admin: 08/04/18 10:02 Dose: 500 mg Amlodipine Besylate (Norvasc -) 10 mg PO DAILY [facility] Last Admin: 08/04/18 10:01 Dose: 10 mg Atorvastatin Calcium (Lipitor -) 20 mg PO HS [facility] Last Admin: 08/03/18 21:42 Dose: 20 mg Diphenhydramine HCl (Benadryl -) 25 mg PO Q6H PRN PRN Reason: FOR ITCHING Docusate Sodium (Colace -) 100 mg PO TID [facility] Last Admin: 08/04/18 06:50 Dose: 100 mg Folic Acid (Folic Acid -) 1 mg PO DAILY [facility] Last Admin: 08/04/18 10:01 Dose: 1 mg Heparin Sodium (Porcine) (Heparin -) 5,000 unit SQ TID [facility] Last Admin: 08/04/18 06:49 Dose: 5,000 unit Insulin Aspart (Novolog Vial Sliding Scale -) 1 vial SQ Q4HPO [facility]; Protocol Last Admin: 08/04/18 12:34 Dose: 5 units Insulin Detemir (Levemir Vial) 30 units SQ AM [facility] Last Admin: 08/04/18 06:50 Dose: 30 units Insulin Detemir (Levemir Vial) 20 units SQ HS [facility] Last Admin: 08/03/18 21:44 Dose: 20 units Losartan Potassium (Cozaar -) 50 mg PO DAILY [facility] Last Admin: 08/04/18 10:01 Dose: 50 mg Oxycodone HCl (Roxicodone -) 5 mg PO Q4H PRN PRN Reason: PAIN LEVEL 6-10 Pantoprazole Sodium (Protonix -) 40 mg PO DAILY [facility] Last Admin: 08/04/18 10:01 Dose: 40 mg - Objective Vital Signs: Vital Signs Temperature 98.1 F 08/04/18 10:00 Pulse Rate 102 H 08/04/18 10:00 Respiratory Rate 20 08/04/18 10:00 Blood Pressure 154/91 08/04/18 10:00 O2 Sat by Pulse Oximetry (%) 96 08/04/18 09:00 Labs: CBC, BMP 08/04/18 05:25 08/04/18 05:25 INR, PTT INR 1.16 (0.83-1.09) H 07/29/18 13:09 <Jn Mckeon - Last Filed: 08/04/18 15:31> Problem List - Problems (1) Idiopathic intracranial hypertension Assessment/Plan: -Diamox BID -neuro consult appreciated Code(s): G93.2 - BENIGN INTRACRANIAL HYPERTENSION (3) Type 2 diabetes mellitus Assessment/Plan: -BGM ACHS -levemir, ISS -diabetic diet Code(s): E11.9 - TYPE 2 DIABETES MELLITUS WITHOUT COMPLICATIONS (4) HTN (hypertension) Assessment/Plan: -cont with losartan and amlodipine -low Na diet Code(s): I10 - ESSENTIAL (PRIMARY) HYPERTENSION <Consuelo Feliz - Last Filed: 08/03/18 14:13> - Problems (1) HTN (hypertension), benign Code(s): I10 - ESSENTIAL (PRIMARY) HYPERTENSION (2) Idiopathic intracranial hypertension Code(s): G93.2 - BENIGN INTRACRANIAL HYPERTENSION (4) Optic neuritis Code(s): H46.9 - UNSPECIFIED OPTIC NEURITIS (5) HTN (hypertension) Code(s): I10 - ESSENTIAL (PRIMARY) HYPERTENSION (6) Hyperlipidemia Code(s): E78.5 - HYPERLIPIDEMIA, UNSPECIFIED (7) New onset type 2 diabetes mellitus Code(s): E11.9 - TYPE 2 DIABETES MELLITUS WITHOUT COMPLICATIONS (8) Obesity Code(s): E66.9 - OBESITY, UNSPECIFIED <Jn Mckeon - Last Filed: 08/04/18 15:31> Assessment/Plan see problem list dvt ppx <Consuelo Feliz - Last Filed: 08/03/18 14:13> PATIENT SEEN AND EXAMINED AGREE WITH THE ABOVE NOTE <Jn Mckeon - Last Filed: 08/04/18 15:31>
[2018-08-03] MEDS ORDERED: POTASSIUM CHLORIDE TABS 20 MEQ TABLET.ER (FP) PO ONE (14:15)
--- NOTE | 2018-08-03 17:09 | PN ---
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 He at baseline x years has "tunnel vision" Soince Lenin has had worsening vision to the point he can only perceive arm movements only in both eyes.States that he had difficulty seeing the stairs and objects directly in front of his face that has been worsening over the past three days. Denies any fevers, chills, headache, nausea, vomiting , ataxia, or other symptoms. He did have an episode of diarrhea yesterday. He states that this does not feel like his pseudo tumor cerebri because that usually presents with a headache. FU: s/p shunt revision -- unable to check OP during procedure, ? if shunt was working to begin with no sig vision changes post shunt revision baseline legally blind , L <<R as per optho, ON were pale, no clear evidence of DM retinopathy , tortuous vessels, ? vascular or metabolic issue ESR 52, TSH NL , MRI B-P - Current Medication List Current Medications: Active Medications Acetazolamide (Diamox -) 500 mg PO BID [facility] Last Admin: 08/02/18 08:59 Dose: 500 mg Amlodipine Besylate (Norvasc -) 10 mg PO DAILY [facility] Last Admin: 08/02/18 08:59 Dose: 10 mg Atorvastatin Calcium (Lipitor -) 20 mg PO HS [facility] Last Admin: 08/01/18 21:00 Dose: 20 mg Diphenhydramine HCl (Benadryl -) 25 mg PO Q6H PRN PRN Reason: FOR ITCHING Docusate Sodium (Colace -) 100 mg PO TID [facility] Last Admin: 08/02/18 13:41 Dose: 100 mg Folic Acid (Folic Acid -) 1 mg PO DAILY [facility] Last Admin: 08/02/18 08:59 Dose: 1 mg Heparin Sodium (Porcine) (Heparin -) 5,000 unit SQ TID [facility] Last Admin: 08/02/18 13:41 Dose: 5,000 unit Insulin Aspart (Novolog Vial Sliding Scale -) 1 vial SQ [facility]; Protocol Last Admin: 08/02/18 17:20 Dose: 7 units Insulin Detemir (Levemir Vial) 15 units SQ HS [facility] Last Admin: 08/01/18 21:03 Dose: 15 units Insulin Detemir (Levemir Vial) 20 units SQ AM [facility] Last Admin: 08/02/18 06:09 Dose: 20 units Losartan Potassium (Cozaar -) 50 mg PO DAILY [facility] Last Admin: 08/02/18 12:50 Dose: 50 mg Oxycodone HCl (Roxicodone -) 5 mg PO Q4H PRN PRN Reason: PAIN LEVEL 6-10 Last Admin: 08/02/18 08:58 Dose: 5 mg Pantoprazole Sodium (Protonix -) 40 mg PO DAILY [facility] Last Admin: 08/02/18 08:59 Dose: 40 mg - Objective Vital Signs: Vital Signs Temperature 98.4 F 08/03/18 13:54 Pulse Rate 75 08/03/18 13:54 Respiratory Rate 20 08/03/18 13:54 Blood Pressure 131/72 08/03/18 13:54 O2 Sat by Pulse Oximetry (%) 97 08/03/18 09:00 Labs: CBCD WBC 10.9 K/mm3 (4.0-10.0) H 08/03/18 05:30 RBC 4.05 M/mm3 (4.00-5.60) 08/03/18 05:30 Hgb 11.8 GM/dL (11.7-16.9) 08/03/18 05:30 Hct 34.4 % (35.4-49) L 08/03/18 05:30 MCV 85.1 fl (80-96) 08/03/18 05:30 MCHC 34.2 g/dl (32.0-35.9) 08/03/18 05:30 RDW 14.1 % (11.9-15.9) 08/03/18 05:30 Plt Count 223 K/MM3 (134-434) 08/03/18 05:30 MPV 8.3 fl (7.5-11.1) 08/03/18 05:30 CMP Sodium 138 mmol/L (136-145) 08/03/18 05:30 Potassium 3.3 mmol/L (3.5-5.1) L 08/03/18 05:30 Chloride 105 mmol/L (98-107) 08/03/18 05:30 Carbon Dioxide 22 mmol/L (21-32) 08/03/18 05:30 Anion Gap 11 MMOL/L (8-16) 08/03/18 05:30 BUN 12 mg/dL (7-18) 08/03/18 05:30 Creatinine 0.8 mg/dL (0.55-1.3) 08/03/18 05:30 Creat Clearance w eGFR > 60 (>60) 08/03/18 05:30 Calcium 8.3 mg/dL (8.5-10.1) L 08/03/18 05:30 Total Bilirubin 0.5 mg/dL (0.2-1) 08/03/18 05:30 AST 9 U/L (15-37) L 08/03/18 05:30 ALT 21 U/L (13-61) 08/03/18 05:30 Alkaline Phosphatase 79 U/L (45-117) 08/03/18 05:30 Total Protein 6.8 g/dl (6.4-8.2) 08/03/18 05:30 Albumin 3.1 g/dl (3.4-5.0) L 08/03/18 05:30 Problem List - Problems (1) Idiopathic intracranial hypertension Code(s): G93.2 - BENIGN INTRACRANIAL HYPERTENSION Assessment/Plan s/p shunt revision -- unable to check OP during procedure, ? if shunt was working to begin with no sig vision changes post shunt revision baseline legally blind as per optho, ON were pale, no clear evidence of DM retinopathy , tortuous vessels, ? vascular or metabolic issue AP : subacute visual decompensation pseudotumor exacerbation would be unusual to present with this sudden onset of visual loss, without TERESA or CN palsy rule out vascular vs metabolic vs ocular ( worsening DM retinpathy) ESR slight elevated but this is doubtfully TA DM not controlled FU MRI BRAIN, if (-) can be fu as outpt with OPTHO ETC DR SEAMAN Problem List - Problems (1) Idiopathic intracranial hypertension Code(s): G93.2 - BENIGN INTRACRANIAL HYPERTENSION
--- NOTE | 2018-08-03 21:36 | PN ---
Progress Note (short form) - Note Progress Note: Patient with some visual improvement and was able to watch TV. He feels that he has improved since his presentation. Dressings for LP shunt all clean and dry. Incisional pain is abating. Patient clear for discharge from Neurosurgery standpoint.
[2018-08-03] MEDS: ATORVASTATIN CA 20 MG TABLET (FP) PO SCH (21:42)
[2018-08-04] MEDS: INSULIN SLIDING SCALE (NOVOLOG) 1 VIAL SQ SCH ×3 (02:30→12:34)
[2018-08-04] MEDS: HEPARIN NA (PORCINE) 5,000 UNITS/ML 1ML VIAL SQ SCH ×2 (06:49→14:11)
[2018-08-04] MEDS: DOCUSATE SODIUM 100 MG CAPSULE (FP) PO SCH ×2 (06:50→14:11)
[2018-08-04] MEDS: INSULIN (LEVEMIR) 100 UNITS/ML UNITS SQ SCH (06:50)
[2018-08-04 08:03] LABS: HEMATOCRIT 36.6 % (35.4-49); HEMOGLOBIN 12.1 GM/dL (11.7-16.9); MCH 24.8 pg (25.7-33.7); MCHC 33.1 g/dl (32.0-35.9); MEAN PLT VOLUME 8.4 fl (7.5-11.1); PLATELET COUNT 185 K/MM3 (134-434); RBC 4.88 M/mm3 (4.00-5.60); RDW 17.5 % (11.9-15.9); WHITE BLOOD COUNT 5.6 K/mm3 (4.0-10.0)
[2018-08-04 08:55] LABS: ALBUMIN 2.9 g/dl (3.4-5.0); ALK PHOS 85 U/L (45-117); ANION GAP 9 MMOL/L (8-16); BILIRUBIN,TOTAL 0.6 mg/dL (0.2-1); BLOOD UREA NITROGEN 14 mg/dL (7-18); CALCIUM 7.9 mg/dL (8.5-10.1); CHLORIDE 104 mmol/L (98-107); CO2 21 mmol/L (21-32); CREATININE 0.9 mg/dL (0.55-1.3); GLUCOSE,RANDOM 145 mg/dL (74-106); POTASSIUM 3.5 mmol/L (3.5-5.1); SGOT/AST 18 U/L (15-37); SGPT/ALT 27 U/L (13-61); SODIUM 134 mmol/L (136-145); TOT PROT 6.7 g/dl (6.4-8.2)
[2018-08-04] MEDS ORDERED: PT OWN MED DRAWER 7, Y5N ONE (09:40)
[2018-08-04] MEDS: PANTOPRAZOLE 40 MG TABLET (FP) PO SCH (10:01)
[2018-08-04] MEDS: LOSARTAN POTASSIUM 50 MG TABLET (FP) PO SCH (10:01)
[2018-08-04] MEDS: FOLIC ACID 1 MG TABLET (FP) PO SCH (10:01)
[2018-08-04] MEDS: amLODIPine BESYLATE 10 MG TABLET (FP) PO SCH (10:01)
[2018-08-04] MEDS: acetaZOLAMIDE 250 MG TABLET PO SCH (10:02)
--- NOTE | 2018-08-04 15:36 | DS ---
Physical Examination Vital Signs: Vital Signs Temperature 98.1 F 08/04/18 10:00 Pulse Rate 102 H 08/04/18 10:00 Respiratory Rate 20 08/04/18 10:00 Blood Pressure 154/91 08/04/18 10:00 O2 Sat by Pulse Oximetry (%) 96 08/04/18 09:00 Findings/Remarks: "I FEEL GOOD" I WOULD LIKE TO GO HOME" PATIENT WALKED ON HIS OWN NO DIZZINESS/HEADACHE +APPETITE Constitutional: Yes: No Distress Eyes: Yes: WNL HENT: Yes: WNL, Tonsillar Exudate Cardiovascular: Yes: WNL Respiratory: Yes: WNL Gastrointestinal: Yes: WNL Musculoskeletal: Yes: WNL Extremities: Yes: WNL Edema: No Integumentary: Yes: WNL Wound/Incision: Yes: Clean/Dry Neurological: Yes: WNL ...Motor Strength: WNL Psychiatric: Yes: WNL Labs: CBC, BMP 08/04/18 05:25 08/04/18 05:25 Discharge Summary Reason For Visit: VISION LOSS Current Active Problems Dyslipidemia (high LDL; low HDL) (Acute) HTN (hypertension), benign (Acute) Idiopathic intracranial hypertension (Acute) Obesity, Class III, BMI 40-49.9 (morbid obesity) (Acute) 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 No heavy lifting or exercise until seen by your surgeon. You may walk unlimited amounts and climb stairs. You may resume driving the car when you feel safe and comfortable behind the wheel and you are no longer wearing your brace. Do not operate a vehicle while taking narcotic medication. Wound Care Keep your incision clean, dry and covered at all times. Apply an occlusive dressing (Saran wrap or Tegaderm) when showering to avoid getting your incision wet. Do not submerge incision or apply ointments or creams. The tamara will be removed in the office in 10-14 days post-op. Diet There are no dietary restrictions. Eat healthy, high-fiber foods. Drink 6-8 glasses of liquid each day. This will assist in keeping your bowels regular. Pain Management You may take Tylenol or acetaminophen. Any pain prescription medication ordered should be taken as prescribed for moderate to severe pain. Call Dr Potts for any of the following: Severe pain not relieved by medication Fever of 101 or higher Excessive bleeding or drainage on dressing Inability to urinate Any chest pain or shortness of breath, seek Emergency Care. Call the office to confirm a post-operative appointment for 2-3 weeks post-op Femi Bragg MD [facility] [place] [address] PATIENT MUST SEE HIS PRIMARY DOCTOR IN 2 DAY IF YOU CAN NOT SEE YOUR PRIMARY DOCTOR SEE DR ZHANG MONDAY [address] [facility] 1PM. Disposition: HOME - Home Medications Comprehensive Discharge Medication List: Ambulatory Orders Amlodipine Besylate [Norvasc -] 10 mg PO DAILY #30 tablet 02/01/17 Aspirin Coated [Ecotrin -] 81 mg PO DAILY #30 tab 02/01/17 Atorvastatin Ca [Lipitor] 20 mg PO HS #30 tablet 02/01/17 hydrALAZINE HCL [Apresoline -] 50 mg PO TID #90 tablet 02/01/17 metFORMIN HCL [Glucophage -] 500 mg PO BID@0700,1630 #60 tablet 02/01/17 Amlodipine Besylate 10 mg PO DAILY 07/29/18 Aspirin [ASA -] 81 mg PO DAILY 07/29/18 Atorvastatin Calcium 20 mg PO HS 07/29/18 Glipizide [Glipizide ER] 2.5 mg PO BID 07/29/18 Hydralazine HCl 50 mg PO TID 07/29/18 Metformin HCl [Glucophage] 1,000 mg PO BID 07/29/18 Spironolactone 25 mg PO DAILY 07/29/18 Diphenhydramine HCl [Benadryl Capsule -] 25 mg PO Q6H PRN #60 capsule MDD 4 08/21 Docusate Sodium [Colace -] 100 mg PO TID #30 capsule 08/04/18 Folic Acid - 1 mg PO DAILY #30 tablet 08/04/18 Losartan Potassium [Cozaar -] 50 mg PO DAILY #30 tablet 08/04/18 Pantoprazole Sodium [Protonix -] 40 mg PO DAILY #30 tablet.ec 08/04/18 acetaZOLAMIDE [Diamox -] 500 mg PO BID #60 tablet 08/04/18
[2018-08-04 16:54] VITALS: BP 159/98; PULSE 100; TEMP 97.8
== END 2018-08-04 17:33 | disposition home or self-care (01) | DRG 29 ==
LOC: JER 12:10 → MERGE 15:35 → JERBED 15:35 → J6S 07-30 16:33 → JICU 07-31 20:33 → J4W 08-02 20:20
PROVIDERS: ADMIT Internal Medicine; ATTEND Family Medicine
PROC: 5A1935Z Respiratory Ventilation, Less than 24 Consecutive Hours (ICD-10-PCS; 2018-07-31)
PROC: 0CHY7BZ Insertion of Airway into Mouth and Throat, Via Natural or Artificial Opening (ICD-10-PCS; 2018-07-31)
PROC: 001U0J6 Bypass Spinal Canal to Peritoneal Cavity with Synthetic Substitute, Open Approach (ICD-10-PCS; principal; 2018-07-31 13:00)
DX: T85.615A Breakdown (mechanical) of other nervous system device, implant or graft, initial encounter (principal); H46.9 Unspecified optic neuritis; Z68.41 Body mass index [BMI] 40.0-44.9, adult; E87.4 Mixed disorder of acid-base balance; D62 Acute posthemorrhagic anemia; E87.2 Acidosis; G93.2 Benign intracranial hypertension; I10 Essential (primary) hypertension; E11.65 Type 2 diabetes mellitus with hyperglycemia; E66.01 Morbid (severe) obesity due to excess calories; E11.319 Type 2 diabetes mellitus with unspecified diabetic retinopathy without macular edema; E78.5 Hyperlipidemia, unspecified; Y83.9 Surgical procedure, unspecified as the cause of abnormal reaction of the patient, or of later complication, without mention of misadventure at the time of the procedure
CPT/HCPCS: 36415; 36600; 70450-TC; 71045-TC-FY; 71046-TC-FY; 72100-TC-FY; 72131-TC; 74018-TC-FY; 74176-TC; 80048; 80053; 80061; 82803; 82962; 83036; 83721; 83735; 84100; 84443; 85025; 85027; 85610; 85651; 86140; 86850; 86900; 86901; 93005; 93010; 94002; 94010; 94760; 97116-GP; 97162-GP; 99284-25; J0131; J1644